=== PATIENT | male | born 1960 | race Caucasian/White ===

== ENCOUNTER → 2016-07-29 | Outpatient (CLI) | payer OTHER ==
[~2016-07-29] MED LIST: ASPI-435 PO; ATOR-24 PO; CLOP1TAB15 PO; COLC0.6T54 PO; DVN80 PO; HYDR-5688 PO; METO1TAB71 PO; OXYC-57 PO
[2016-07-29 13:24] LABS: ALT/SGPT 50 U/L (12-78); BLOOD UREA NITROGEN 21 mg/dl (7-18); BUN/CREATININE RATIO 19.1 (10-20); CALCIUM 9.7 mg/dl (8.5-10.1); CARBON DIOXIDE 30 mmol/L (21-32); CHLORIDE 107 mmol/L (98-107); CHOLESTEROL 153 mg/dl (0-200); GLUCOSE 113 mg/dl (70-99); POTASSIUM 4.7 mmol/L (3.5-5.1); SODIUM 141 mmol/L (136-145); TRIGLYCERIDES 55 mg/dl (0-150); VERY LOW DENSITY LIPOPROT CALC 11 mg/dl
[2016-07-29 13:28] LABS: ALB/GLOB RATIO 1.1 (0.9-2); ALKALINE PHOSPHATASE 61 U/L (45-117); AST/SGOT 37 U/L (15-37); CHOLESTEROL/HDL RATIO 2.9; HDL CHOLESTEROL 53 mg/dl; LDL CHOLESTEROL CALCULATED 89 mg/dl
[2016-07-29 13:32] LABS: ESTIMATED AVERAGE GLUCOSE 126 mg/dl; HA1C FLAG Normal (Normal)
== END | disposition home or self-care (01) ==
LOC: C.LABPVFM 08:03
PROVIDERS: ATTEND Family Medicine
DX: M67.921 Unspecified disorder of synovium and tendon, right upper arm (principal); I10 Essential (primary) hypertension; E78.5 Hyperlipidemia, unspecified

== ENCOUNTER → 2016-10-12 | Outpatient (CLI) | payer OTHER ==
--- NOTE | 2016-10-12 12:24 | DIAGNOSTIC IMAGING REPORT ---
LEFT ANKLE MIN 3 VIEWS ROUTINE CLINICAL HISTORY: LEFT ANKLE PAIN COMPARISON: None. DISCUSSION: The bony mineralization appears normal. No fractures or dislocations are visualized. There are no erosive or destructive changes. There are vascular calcifications present. There is no evidence for soft tissue swelling. IMPRESSION: No fractures or dislocations identified. No evidence of erosive disease. Electronically signed by: Jh Moore M.D. 10/12/2016 12:23 PM Dictated Date/Time: 10/12/2016 12:22 PM
== END | disposition home or self-care (01) ==
LOC: C.RADPV 12:07
PROVIDERS: ATTEND Family Medicine
DX: M25.572 Pain in left ankle and joints of left foot (principal)

== ENCOUNTER 2016-10-14 07:42 | Emergency (ER) | payer OTHER ==
[~2016-10-14] VITALS: Ht 170.2 cm; Wt 84.0 kg
[~2016-10-14 07:42] MED LIST changes: -ATOR-24 PO; -CLOP1TAB15 PO; -COLC0.6T54 PO; -HYDR-5688 PO
[2016-10-14 07:46] VITALS: Ht 170.2 cm; Wt 84.0 kg
[2016-10-14] MEDS ORDERED: HYDROCODONE/ACETAMOPHEN 5/325MG TAB PO ONE (08:15)
[2016-10-14] MEDS ORDERED: ATOR-24 PO (08:39)
[2016-10-14] MEDS ORDERED: CLOP1TAB15 PO (08:39)
[2016-10-14 08:46] LABS: BASO % 0.5 %; BASO ABS # 0.04 K/uL (0-0.2); COMPLETE YES; EOS % 4.5 %; HEMATOCRIT 40.4 % (42-52); IG% 0.1 %; LYMPH ABS # 1.93 K/uL (1.2-3.4); MEAN CELL VOLUME 89.6 fL (80-100); MEAN CORPUSCULAR HEMOGLOBIN 31.5 pg (25-34); MEAN CORPUSCULAR HGB CONC 35.1 g/dl (32-36); MEAN PLATELET VOLUME 10.9 fL (7.4-10.4); MONO % 5.4 %; NEUT % 66.5 %; PLATELET COUNT 137 K/uL (130-400); RED BLOOD COUNT 4.51 M/uL (4.7-6.1)
[2016-10-14 09:13] VITALS: BP 168/76; PULSE 55; TEMP 36.6; O2SAT 97
[2016-10-14] MEDS ORDERED: HYDR-5688 PO (09:21)
[2016-10-14] MEDS ORDERED: COLC0.6T54 PO (09:21)
--- NOTE | 2016-10-14 16:05 | EMERGENCY ROOM VISIT NOTE ---
History First contact with patient: 07:57 Chief Complaint: ANKLE PAIN Stated Complaint: ANKLE PAIN History of Present Illness The patient is a 56 year old white male who presents to the Emergency Room with complaints of left ankle pain that began yesterday. Patient states he saw his PCP and was told to take ibuprofen. He is concerned that he has gout. He states this has happened several times in the past and last a few days. He usually takes oral pain medication along with other unknown medications and his symptoms resolve. He asked for pain medication yesterday at his PCPs office, and states he was told to take ibuprofen. He states it is not working. He is using crutches and states it is difficult to put weight on the ankle. He denies any falls. No numbness or tingling. He denies any fevers or chills. No lower leg pain. No other treatment. Review of Systems REVIEW OF SYSTEM: HEENT: No dizziness, visual problems, hearing loss, or tinnitus. There is no difficulty swallowing and no oral lesions are present. LYMPH: No adenopathy. PULMONARY: No cough, shortness of breath, sputum production or hemoptysis. CARDIOVASCULAR: No chest pain, palpitations, shortness of breath or peripheral edema. GASTROINTESTINAL: No diarrhea, constipation, nausea, vomiting, or abdominal pain. GENITOURINARY: No dysuria, frequency, urgency or nocturia. NEUROLOGIC: No weakness, muscle tenderness, epilepsy or history of neurological problems. MUSCULOSKELETAL: No history of joint tenderness/swelling. No history of arthritis or arthralgias. SKIN: No rashes or lesions. PSYCHIATRIC: Positive history of alcohol abuse. ENDOCRINE: No history of diabetes, thyroid disorders, or abnormal hair growth. Past Medical/Surgical History Medical Problems: (1) Alcohol Abuse-Unspec (2) Carpal Tunnel Syndrome (3) Chronic Hepatitis C W/O Hepatic Coma (4) Hypertension Nos Social History Problems: (1) Tobacco Use Disorder Family History Noncontributory. Social History Smoking Status: Former Smoker Smokeless Tobacco Use: No Alcohol Use: heavy Drug Use: none, other Marital Status: Housing Status: lives with family Occupation Status: employed Current/Historical Medications Scheduled Aspirin (Aspirin 81), 1 TAB PO DAILY Atorvastatin (Lipitor), 40 MG PO DAILY Clopidogrel (Plavix), 75 MG PO DAILY Colchicine (Colchicine), 0.6 MG PO DIRECTED Valsartan (Diovan), 160 MG PO QAM Scheduled PRN Hydrocodone/Acetaminophen 5MG/325MG ([place] 5MG/325MG), 1-2 TABLET PO Q6 PRN for Pain Allergies Coded Allergies: Lisinopril (Verified Adverse Reaction, Severe, COUGH, 10/14/16) Physical Exam Vital Signs Date Time Temp Pulse Resp B/P Pulse Ox O2 Delivery O2 Flow Rate FiO2 10/14/16 09:13 36.6 55 18 168/76 97 Room Air 10/14/16 07:46 36.7 69 18 176/90 98 Room Air Pain Rating (0-10): 10.0 Physical Exam Gen.: Well-developed, well-nourished, middle-aged white male, in obvious discomfort. No acute distress. Sitting on a bed. Alert and oriented. Skin: Warm and dry with good turgor. No rashes or lesions. No tophi. Ankle has a mild redness around it. Mildly warm. There is nothing to suggest donato cellulitis at this time. There is also visible mild intra-articular effusion. No ecchymosis. The patient is not diaphoretic. No abrasions. Musculoskeletal : No pain with palpation over the knee or calf. He does have discomfort with palpation over the medial and lateral ankle as well as anteriorly. No pain posteriorly. Achilles tendon is palpated throughout its entirety and found to be intact and without defect. Normal Alicia test. No pain with palpation over the malleoli. No pain with palpation over the midfoot, forefoot, or digits. Motor function of the toes is intact but causes pain around the ankle. Ankle range of motion is limited secondary to pain as well. Strength is 5/5 for resisted plantar flexion/dorsiflexion and inversion/eversion. Neurologic: Gross sensation is intact across the ankle and foot by soft touch. Peripheral pulses are 2+. Medical Decision & Procedures Laboratory Results 10/14/16 08:30 Red Blood Count 4.51, Mean Corpuscular Volume 89.6, Mean Corpuscular Hemoglobin 31.5, Mean Corpuscular Hemoglobin Concent 35.1, Mean Platelet Volume 10.9, Neutrophils (%) (Auto) 66.5, Lymphocytes (%) (Auto) 23.0, Monocytes (%) (Auto) 5.4, Eosinophils (%) (Auto) 4.5, Basophils (%) (Auto) 0.5, Neutrophils # (Auto) 5.59, Lymphocytes # (Auto) 1.93, Monocytes # (Auto) 0.45, Eosinophils # (Auto) 0.38, Basophils # (Auto) 0.04 Test 10/14/16 08:30 White Blood Count 8.40 K/uL (4.8-10.8) Red Blood Count 4.51 M/uL (4.7-6.1) Hemoglobin 14.2 g/dL (14.0-18.0) Hematocrit 40.4 % (42-52) Mean Corpuscular Volume 89.6 fL (80-100) Mean Corpuscular Hemoglobin 31.5 pg (25-34) Mean Corpuscular Hemoglobin Concent 35.1 g/dl (32-36) Platelet Count 137 K/uL (130-400) Mean Platelet Volume 10.9 fL (7.4-10.4) Neutrophils (%) (Auto) 66.5 % Lymphocytes (%) (Auto) 23.0 % Monocytes (%) (Auto) 5.4 % Eosinophils (%) (Auto) 4.5 % Basophils (%) (Auto) 0.5 % Neutrophils # (Auto) 5.59 K/uL (1.4-6.5) Lymphocytes # (Auto) 1.93 K/uL (1.2-3.4) Monocytes # (Auto) 0.45 K/uL (0.11-0.59) Eosinophils # (Auto) 0.38 K/uL (0-0.5) Basophils # (Auto) 0.04 K/uL (0-0.2) RDW Standard Deviation 42.0 fL (36.4-46.3) RDW Coefficient of Variation 12.8 % (11.5-14.5) Immature Granulocyte % (Auto) 0.1 % Immature Granulocyte # (Auto) 0.01 K/uL (0.00-0.02) Uric Acid 6.7 mg/dl (2.6-7.2) CBC and uric acid level were obtained. They're both unremarkable. Medications Administered Medications (Trade) Dose Ordered Sig/Elicia Route Start Time Stop Time Status Last Admin Dose Admin Acetaminophen/ Hydrocodone Bitart ([place] 5/325 Tab) 1 tab NOW ONCE PO 10/14/16 08:15 10/14/16 08:16 DC 10/14/16 08:23 1 TAB [place] 5 mg by mouth ED Course Patient was educated regarding today's findings. Conservative care measures were discussed. Labs were obtained. He was given [place] 5 mg for his discomfort. We did discuss the strong possibility of gout. Uric acid level is not significantly elevated but may be rising. He did have his leg elevated during the ED visit, and the redness almost entirely resolved. He continued to have a small intra-articular effusion. Option of oral anti-inflammatory, prednisone, and colchicine was discussed at length. He does take Plavix. He also has a history of diabetes. Because of this, he was started on colchicine. Prescription was provided. He was also prescribed a small amount of [place] 5 mg to be used for severe pain. Driving precautions were given. PDMP was also checked. Follow-up with his PCP this week for reexamination. Use the crutches as needed. Weight-bear as tolerated. Medical Decision Possibility of ankle sprain, intra-articular infection, osteoarthritis flare, gout, and tendon injury were considered. [place] Drug Monitoring Program Drug Monitoring Findings: No excessive prescriptions. Impression Primary Impression: Left ankle pain Departure Information Dispostion Home / Self-Care Prescriptions Colchicine (Colchicine) 0.6 Mg Tab 0.6 MG PO DIRECTED, #10 TAB Prov: Anthony Mendieta,P.A. 10/14/16 Hydrocodone/Acetaminophen 5MG/325MG ([place] 5MG/325MG) Tab 1-2 TABLET PO Q6 Y for Pain, #12 TAB For Initial Treatment Prov: Anthony Mendieta,P.A. 10/14/16 Referrals Christian Fisher M.D. (PCP) Forms HOME CARE DOCUMENTATION FORM, IMPORTANT VISIT INFORMATION Patient Instructions Gout, My [facility] Additional Instructions [place] one to 2 tablets every 6 hours as needed for severe pain-no driving Use your crutches until you can walk without a limp Gentle motion daily Start colchicine today-2 tablets immediately, followed by 1 tablet an hour later. Take 1 tablet daily starting tomorrow, until symptoms resolve Ice and elevate the leg to reduce pain and swelling Follow-up with your PCP on Sunday if needed
== END 2016-10-14 09:30 | disposition home or self-care (01) ==
LOC: C.EDB 07:44
DX: M25.572 Pain in left ankle and joints of left foot (principal); I10 Essential (primary) hypertension; K75.9 Inflammatory liver disease, unspecified; F17.210 Nicotine dependence, cigarettes, uncomplicated; Z79.82 Long term (current) use of aspirin; Z79.899 Other long term (current) drug therapy

== ENCOUNTER → 2017-01-27 | Outpatient (CLI) | payer OTHER ==
[~2017-01-27] MED LIST changes: +ATOR-24 PO; +CLOP1TAB15 PO; +COLC0.6T54 PO; +HYDR-5688 PO; -METO1TAB71 PO; -OXYC-57 PO
[2017-01-27 13:15] LABS: ALT/SGPT 52 U/L (12-78); AST/SGOT 37 U/L (15-37); BLOOD UREA NITROGEN 23 mg/dl (7-18); BUN/CREATININE RATIO 21.2 (10-20); CALCIUM 9.4 mg/dl (8.5-10.1); CARBON DIOXIDE 31 mmol/L (21-32); CHLORIDE 106 mmol/L (98-107); ESTIMATED AVERAGE GLUCOSE 131 mg/dl; GLUCOSE 111 mg/dl (70-99); HA1C FLAG Normal (Normal); POTASSIUM 4.8 mmol/L (3.5-5.1); SODIUM 141 mmol/L (136-145)
[2017-01-27 13:17] LABS: ALB/GLOB RATIO 1.1 (0.9-2); ALKALINE PHOSPHATASE 63 U/L (45-117); CHOLESTEROL 138 mg/dl (0-200); CHOLESTEROL/HDL RATIO 2.5; HDL CHOLESTEROL 56 mg/dl; LDL CHOLESTEROL CALCULATED 73 mg/dl; TRIGLYCERIDES 46 mg/dl (0-150); VERY LOW DENSITY LIPOPROT CALC 9 mg/dl
== END | disposition home or self-care (01) ==
LOC: C.LABPVFM 07:59
PROVIDERS: ATTEND Family Medicine
DX: I10 Essential (primary) hypertension (principal); E11.9 Type 2 diabetes mellitus without complications; E78.5 Hyperlipidemia, unspecified; L60.1 Onycholysis; M25.572 Pain in left ankle and joints of left foot

== ENCOUNTER → 2017-04-23 | Outpatient (CLI) | payer OTHER ==
[~2017-04-23] MED LIST changes: -COLC0.6T54 PO
[2017-04-23 18:03] LABS: INR 1.1 (0.9-1.1); PROTHROMBIN TIME (PATIENT) 11.8 SECONDS (9.0-12.0)
== END | disposition home or self-care (01) ==
LOC: C.LABPVFM 14:08
PROVIDERS: ATTEND Surgery
DX: Z01.812 Encounter for preprocedural laboratory examination (principal); E11.9 Type 2 diabetes mellitus without complications; D17.0 Benign lipomatous neoplasm of skin and subcutaneous tissue of head, face and neck

== ENCOUNTER → 2017-06-01 | Day surgery (SDC) | payer OTHER ==
[2017-05-22 12:17] VITALS: Ht 171.5 cm; Wt 75.9 kg
[~2017-06-01] VITALS: Ht 171.5 cm; Wt 75.9 kg
[~2017-06-01] MED LIST changes: +ATROPINE SULFATE 0.1 MG/ML 5ML SYR IV PRN; +BACITRACIN OINT 15 GM TUBE ONE; +BUPIVACAINE 0.5 % 5 MG/1 ML MPF 30ML VIAL ONE; +EpHEDrine SULFATE 50MG/5ML SYR ONE; +EpHEDrine SULFATE INJ 50 MG/ML AMP IV PRN; +FENTANYL CITRATE INJ 50 MCG/1 ML 2 ML VIAL IV PRN; +FENTANYL CITRATE INJ 50 MCG/1 ML 2 ML VIAL ONE; -HYDR-5688 PO; +IBUPROFEN 600 MG TAB PO PRN; +LACTATED RINGER'S 1000ML 1,000 ML IV SCH; +LIDOCAINE HCL 2% 2 ML VIAL (20MG/ML) ONE; +LIDOCAINE/EPINEPHRINE 1% INJ 50 ML VIAL ONE; +MIDAZOLAM HCL 1 MG/ML 2ML VIAL ONE; +ONDANSETRON INJ 2 MG/ML 2 ML VIAL IV PRN; +ONDANSETRON INJ 2 MG/ML 2 ML VIAL ONE; +OXYC-57 PO; +PROPOFOL IV EMULSION 10 MG/ML 20 ML VIAL IV ONE; +SODIUM CHLORIDE 0.9% 1000ML 1,000 ML IV SCH
--- NOTE | 2017-06-01 07:11 | History and Physical ---
History & Physical Date Jun 01, 2017. Chief Complaint Scalp lipoma History of Present Illness 56-year-old male with several year history of enlarging right posterior scalp lipoma. No history of infection. He has a history of peripheral vascular disease and had cardiac clearance. He has stopped his Plavix since Sunday but is still taking his baby aspirin. No family history of soft tissue malignancy. It causes him discomfort when pressure is applied to the area. Past Medical/Surgical History Medical Problems: (1) Alcohol Abuse-Unspec (2) Carpal Tunnel Syndrome (3) Chronic Hepatitis C W/O Hepatic Coma (4) Hypertension Nos Social History Problems: (1) Tobacco Use Disorder Allergies Coded Allergies: Lisinopril (Verified Adverse Reaction, Severe, COUGH, 06/01/17) Home Medications Scheduled Aspirin (Aspirin 81), 1 TAB PO QAM Atorvastatin (Lipitor), 40 MG PO QAM Clopidogrel (Plavix), 75 MG PO QAM Valsartan (Diovan), 80 MG PO QAM Physical Examination Skin: warm/dry, no rash Eyes: normal inspection, EOMI, sclerae normal ENT: normal ENT inspection, pharynx normal Head: normocephalic, atraumatic, + pertinent finding (posterior right scalp there is a 3 cm soft, rubbery, mobile mass consistent with a lipoma.) Respiratory/Chest: lungs clear, normal breath sounds, no respiratory distress Cardiovascular: regular rate, rhythm, no edema, no murmur Abdomen / GI: normal bowel sounds, non tender Back: normal inspection Extremities: normal inspection, normal range of motion Diagnosis Right posterior scalp lipoma Plan of Treatment Plan for excision right posterior scalp mass Risks discussed include but are not limited to bleeding, infection, recurrence, need for future more extensive surgery, scar, seroma/hematoma, pain, numbness, and the risks of anesthesia Wound care instructions and activity should and reviewed The details of the surgery, recovery, plan of care were discussed with the patient, all questions were answered, the patient expressed understanding and agreed to proceed with surgery as planned.
[2017-06-01 08:17] VITALS: TEMP 36.6
--- NOTE | 2017-06-01 08:20 | Discharge Instructions ---
Discharge Instructions Date of Service Jun 01, 2017. Visit Reason for Visit: Soft Tissue Scalp Mass 3 Cm Discharge Discharge Diagnosis / Problem: Soft Tissue Scalp Mass 3 Cm Discharge Goals Goal(s): Decrease discomfort, Improve function Activity Recommendations Activity Limitations: as noted below Lifting Limitations: gradually increase as tolerated Exercise/Sports Limitations: gradually increase as tolerated Shower/Bathe: tomorrow Driving or Machine Use: resume 3 days after discharge (Do not drive while using narcotic pain medication) Anesthesia . Post Anesthesia Instructions: If you have had General Anesthesia or IV Sedation: * Do not drive today. * Resume driving when surgeon permits. * Do not make important decisions or sign legal documents today. * Call surgeon for: 1. Temperature elevations greater than 101 degrees F. 2. Uncontrollable pain. 3. Excessive bleeding. 4. Persistent nausea and vomiting. 5. Medication intolerance (nausea, vomiting or rash). * For nausea and vomiting use only clear liquids such as: tea, soda, bouillon until nausea subsides, then gradually increase diet as tolerated. * If you have any concerns or questions, call your surgeon's office. If physician is unavailable and it is an emergency, call 911 or go to the nearest emergency room. . Instructions / Follow-Up Instructions / Follow-Up You have Sutures in place. You may restart your Plavix and Aspirin medications tomorrow 06/02/2017 as prescribed. You may use OTC ibuprofen as directed on the label for pain. You may alternate this with OTC Tylenol as directed on the label if your require more pain control. Please follow-up with Dr. Slade in the general surgery clinic in 1-2 weeks for suture removal and post-operative incision check. Please call our office at to schedule an appointment if you have not done so already. [facility]. [address] [place] [address]. Diet Recommendations Recommended Home Diet: no limitations, resume previous diet Procedures Procedures Performed: Posterior Scalp Mass Excision Pending Studies Studies pending at discharge: yes List of pending studies: Pathology Medical Emergencies . Who to Call and When: Medical Emergencies: If at any time you feel your situation is an emergency, please call 911 immediately. . Non-Emergent Contact Non-Emergency issues call your: Primary Care Provider, Surgeon Call Non-Emergent contact if: you have a fever, temperature is above 101.5, your pain is not controlled, your pain is worsening, wound has increased drainage, wound has increased redness . . "Provider Documentation" section prepared by Jhonatan Montes. . [place] Drug Monitoring Program Search Results: patient reviewed within database (No matching patient identified)
--- NOTE | 2017-06-01 08:21 | [facility] Post Operative Brief Note ---
Immediate Operative Summary Operative Date Jun 01, 2017. Pre-Operative Diagnosis Posterior scalp soft tissue mass Post-Operative Diagnosis Same as pre-op Procedure(s) Performed Posterior Scalp Mass Excision Surgeon Dr. Slade Fisher Troll Line Surgeon(s) Jhonatan Lima Estimated Blood Loss 10ML Findings 3.5 cm lipoma excised, deep to the galea. Specimens A.Posterior scalp mass Drains none Anesthesia MAC and local Complication(s) None Disposition Recovery Room / PACU
--- NOTE | 2017-06-01 08:25 | [facility] Operative Report ---
Operative Report Operative Date Jun 01, 2017. Pre-Operative Diagnosis Posterior scalp soft tissue mass Post-Operative Diagnosis posterior scalp soft tissue mass Procedure(s) Performed Excision posterior scalp soft tissue mass Surgeon Dr. Slade Retail Cashier Associate Surgeon(s) Jhonatan Lima Estimated Blood Loss 10ML Findings 3.5 cm lipoma, deep to the galea Specimens A.Posterior scalp mass Drains none Anesthesia MAC and local Complication(s) None Disposition Recovery Room / PACU Indications 56-year-old male several year history of posterior scalp mass, likely lipoma. Plan for excision posterior scalp mass. The risks of the procedure were discussed, all questions were answered, and the patient agreed to proceed with surgery as planned. Description of Procedure The patient was properly identified, consented, and taken to the operating room where he was placed in the supine position. Monitored anesthesia care was induced. The patient was placed in the lateral decubitus position with his left side down. SCDs and a safety belt were placed. The patient's posterior scalp was prepped and draped in the standard sterile fashion. Surgical timeout was performed and all parties were in agreement that this was the correct patient and procedure to be performed and we continued as planned. Local anesthetic was injected along the skin incision. A oblique incision was made overlying the mass and deepened down through the subcutaneous tissue with electrocautery. The galea was opened. The mass was circumferentially dissected , excised, and passed off the table as specimen. Her to be a lipoma. The wound was irrigated and hemostasis was achieved. The galea was closed with interrupted 3-0 Vicryl sutures. The skin was closed with interrupted 3-0 Vicryl deep dermal sutures, followed by 3-0 Prolene simple interrupted suture. Antibiotic ointment was placed over the wound. Mr. Montes assisted in retracting, dissecting, and closing the wound. The patient was taken to the PACU where he recovered without apparent incident. All sponge, instrument and needle counts were correct at the conclusion of the procedure. The patient tolerated the procedure well. I attest to the content of the Intraoperative Record and any orders documented therein. Any exceptions are noted below.
[2017-06-01 08:41] VITALS: BP 129/67; PULSE 51; O2SAT 100
--- NOTE | 2017-06-01 08:44 | Anesthesiology Progress Note ---
Anesthesia Post Op Note Date & Time Jun 01, 2017 at 08:44 Vital Signs Pain Intensity: 0 Vital Signs Past 12 Hours Date Time Temp Pulse Resp B/P (MAP) Pulse Ox O2 Delivery O2 Flow Rate FiO2 06/01/17 08:41 51 20 129/67 (87) 100 Room Air 06/01/17 08:17 36.6 83 18 130/74 (92) 97 Room Air 06/01/17 06:25 36.7 52 16 146/74 (98) 100 Room Air Notes Mental Status: alert / awake / arousable, participated in evaluation Pt Amnestic to Procedure: Yes Nausea / Vomiting: adequately controlled Pain: adequately controlled Airway Patency, RR, SpO2: stable & adequate BP & HR: stable & adequate Hydration State: stable & adequate Anesthetic Complications: no major complications apparent
== END | disposition home or self-care (01) ==
LOC: X.SURG 06:10
PROVIDERS: ATTEND Surgery
DX: D17.0 Benign lipomatous neoplasm of skin and subcutaneous tissue of head, face and neck (principal); I10 Essential (primary) hypertension; B19.20 Unspecified viral hepatitis C without hepatic coma; Z87.891 Personal history of nicotine dependence

== ENCOUNTER 2022-08-08 07:46 | Inpatient (IN) ==
[2022-08-08] MEDS ORDERED: ONDANSETRON INJ 2 MG/ML 2 ML VIAL IV STA (08:09)
[2022-08-08] MEDS ORDERED: SODIUM CHLORIDE 0.9% 1,000 ML IV STA (08:09)
--- NOTE | 2022-08-08 08:16 | Emergency Department Note ---
History of Present Illness General Chief complaint: Groin Pain Stated complaint: GROIN PAIN, RIGHT SIDE PAIN, NAUSEOUS Time Seen by Provider: 08/08/22 08:14 History of Present Illness Maximum Pain Intensity: 10 This 62-year-old male patient presents to the emergency department for evaluat ion of right-sided groin and abdominal pain as well as nausea. The pain radiates from his right lower quadrant into the right testicle. Symptoms happened a couple weeks ago as well, but then resolved. The pain wakes the patient out of a sleep. History of bypass in an artery in that general area per patient. He states that 2 weeks ago he felt like he had a viral illness that resolved as well. Has not eaten in the past 1-2 days because of upset stomach, but the pain didn't get severe until this morning. His urine stream has been "slow" per patient and just got an appointment with urology on Aug 25 to evaluate further. Typically has soft formed BMs once a day. However, since the symptoms started, he feels like he has to have a BM, but only passes gas. Denies any chest pain or SOB. Just started with nausea this morning, but no vomiting. No fevers, but has had chills. Has tried Advil without improvement of his symptoms. Upper bilateral popliteal artery bypass surgery bilaterally in 2013 per patient. He has been on Plavix since that time. Sees Dr. Perez of vascular surgery in [place]. Sees Dr. Peter of GI. Scheduled for EGD and Colonoscopy on Sep 05 for history of TA polyps and Boo's Esophagus. Home Medications Medication Instructions Recorded Confirmed Type aspirin 81 mg tablet,delayed 81 mg PO DAILY 11/09/21 08/08/22 History release atorvastatin 40 mg tablet 40 mg PO HS #90 tabs 11/28/21 08/08/22 Rx clopidogrel 75 mg tablet See Rx Instructions .Route 01/09/22 08/08/22 Rx .COMPLEX #30 tabs valsartan 80 1 tab PO BID #180 tabs 06/27/22 08/08/22 Rx mg-hydrochlorothiazide 12.5 mg tablet Allergies Allergy/AdvReac Type Severity Reaction Status Date / Time lisinopril AdvReac Severe COUGH Verified 08/08/22 15:22 Past Med/Surg History Medical History Adenomatous colon polyp Alcohol abuse, unspecified Barretts esophagus Benign essential hypertension Diabetes mellitus, type 2 TAKES NO MEDS/ DIET/ EXERCISE History of irregular heartbeat HX- HAD EKG AT [facility] THIS YEAR- SEES AT [facility]- PER THAT DOCTOR, NO ISSUES OR PROBLEMS Hyperlipidemia Neoplasm of soft tissues of head PAD (peripheral artery disease) Right leg pain S/P angiogram of extremity Tobacco use disorder Tubular adenoma of colon Surgical History Cyst REMOVED FROM BACK OF HEAD History of carpal tunnel release BILAT History of colonoscopy History of esophagogastroduodenoscopy (EGD) History of open reduction and internal fixation (ORIF) procedure RT LEG (HARDWARE INTACT) History of right cataract surgery Hx of vascular surgery BILAT UPPER ARTERIAL "POP" 5 YRS AGO- AT [facility]- FOLLOWS WITH [facility] (NO STENTS) Nausea and vomiting after administration of anesthetic agent Family History Mother Family history of diabetes mellitus Myocardial infarction Diabetes Stroke Father Myocardial infarction Cancer Brother Stroke Other Hypertension Denies family history of Ovarian cancer Prostate cancer Breast cancer Colorectal cancer Social History Smoking Status: Former smoker Tobacco Type: Cigarettes Age Started Using Tobacco: 17; Age Quit Using Tobacco: 49; packs per day: 1; Second Hand Exposure: Yes; Hx Alcohol Use: Yes Alcohol type: beer Hx Substance Use: No Preferred Language: Uzbek Communication Ability: Effective Visual Impairment: No Limitations Hearing Ability: Normal Crisis Manager Required: No Beliefs That Will Affect Care: None marital status: Current Living Situation: Spouse current occupational status: employed current occupation: [employer] Feels Safe at Home: Yes Childhood Exposure to Second-Hand Smoke: Yes Diet Comment: regular Dental Care, Regularly: Yes Physical Activity Frequency: 5-6 Times per Week Seatbelt Use: always Sunscreen Use: Yes Assistive Devices: Contacts and Glasses Review of Systems See HPI for pertinent positives & negatives. Physical Exam Vital Signs Vital Signs - 24 hr 08/08/22 08:02 08/08/22 10:29 08/08/22 11:16 Temperature 36.4 C L Temperature Source Temporal Artery Scan Pulse Rate 127 H 121 H Pulse Rate [Apical] 118 H Pulse Rate from SpO2 Sensor 122 H Pulse Rhythm [Apical] Regular Respiratory Rate 18 18 24 Respiratory Effort / Characteristics Non-Labored Spontaneous Non-Labored Respiratory Depth Normal Normal Respiratory Pattern Regular Blood Pressure 145/94 H Blood Pressure [Left Arm] 120/85 Blood Pressure Mean 111 Blood Pressure Mean [Left Arm] 96 Blood Pressure Position Sitting Pulse Oximetry 97 96 100 Oxygen Delivery Method Room Air Room Air Sepsis Recent Fever Within 48 Hours No Sepsis New/Unexplained Change in Mental Status No Sepsis Action Taken by Nursing No Action Required 08/08/22 11:20 08/08/22 11:30 08/08/22 11:40 Temperature Temperature Source Pulse Rate 106 H 108 H 107 H Pulse Rate [Apical] Pulse Rate from SpO2 Sensor 107 H 108 H 107 H Pulse Rhythm [Apical] Respiratory Rate 19 18 19 Respiratory Effort / Characteristics Respiratory Depth Respiratory Pattern Blood Pressure Blood Pressure [Left Arm] Blood Pressure Mean Blood Pressure Mean [Left Arm] Blood Pressure Position Pulse Oximetry 96 94 93 Oxygen Delivery Method Sepsis Recent Fever Within 48 Hours Sepsis New/Unexplained Change in Mental Status Sepsis Action Taken by Nursing 08/08/22 11:50 08/08/22 12:00 08/08/22 12:10 Temperature Temperature Source Pulse Rate 104 H 126 H 121 H Pulse Rate [Apical] Pulse Rate from SpO2 Sensor 105 H Pulse Rhythm [Apical] Respiratory Rate 17 27 H 27 H Respiratory Effort / Characteristics Respiratory Depth Respiratory Pattern Blood Pressure Blood Pressure [Left Arm] Blood Pressure Mean Blood Pressure Mean [Left Arm] Blood Pressure Position Pulse Oximetry 93 Oxygen Delivery Method Sepsis Recent Fever Within 48 Hours Sepsis New/Unexplained Change in Mental Status Sepsis Action Taken by Nursing 08/08/22 12:51 08/08/22 13:14 08/08/22 13:14 Temperature Temperature Source Pulse Rate 125 H Pulse Rate [Apical] Pulse Rate from SpO2 Sensor 125 H 126 H Pulse Rhythm [Apical] Respiratory Rate 22 Respiratory Effort / Characteristics Respiratory Depth Respiratory Pattern Blood Pressure 140/80 Blood Pressure [Left Arm] Blood Pressure Mean 100 Blood Pressure Mean [Left Arm] Blood Pressure Position Pulse Oximetry 96 93 Oxygen Delivery Method Room Air Sepsis Recent Fever Within 48 Hours Sepsis New/Unexplained Change in Mental Status Sepsis Action Taken by Nursing VITALS: Vitals are noted on the nurse's note and reviewed by myself. GENERAL: Non toxic, no acute distress, non-diaphoretic. SKIN: Capillary refill <2 sec. EARS: External auditory canals clear, tympanic membranes pearly jorge without erythema or effusion bilaterally. EYES: PERRLA. EOMI. Conjunctivae without injection, sclerae without icterus. NOSE: Patent without discharge. MOUTH: Mucous membranes moist. Uvula midline. Airway patent. NECK: Supple without nuchal rigidity. HEART: Tachycardic without murmurs gallops or rubs. LUNGS: Clear to auscultation bilaterally without wheezes, rales or rhonchi. No retractions or accessory muscle use. ABDOMEN: Positive bowel sounds x 4. Normal tympanic percussion. Soft, tender to palpation in the right lower quadrant, without masses or organomegaly. Ivey sign negative. Mild guarding, but no rebound tenderness. No rigidity. : Permission to perform the exam. Oil Well Driller present for the exam. No testicular edema or erythema. Testicles are nontender to palpation. The patient is tender to palpation into the right groin. No obvious hernias appreciated. MUSCULOSKELETAL: No gross musculoskeletal defects. NEURO: Patient was alert and oriented to person place and time. No focal neurological deficits. Course Administered Medications Discontinued Medications Sodium Chloride (Nss) 1,000 mls @ 999 mls/hr IV .Q1H1M STA Stop: 08/08/22 09:09 Last Infusion: 08/08/22 09:30 Dose: 0 mls/hr Documented By: Admin: 08/08/22 08:24 Dose: 999 mls/hr Documented By: NA Piperacillin Sod/Tazobactam Sod (Zosyn) 4.5 gm in 120 mls @ 240 mls/hr IV NOW ONE Stop: 08/08/22 12:34 Last Infusion: 08/08/22 13:45 Dose: 0 mls/hr Documented By: Admin: 08/08/22 13:10 Dose: 240 mls/hr Documented By: GEE Ioversol (Optiray 350 100ml) 84 ml IV ONCE ONE Stop: 08/08/22 11:11 Last Admin: 08/08/22 11:10 Dose: 84 ml Documented By: RAKEL Morphine Sulfate (Morphine Sulfate 4 Mg/Ml 1 Ml Carp\\Vial) 4 mg IV NOW STA Stop: 08/08/22 08:27 Last Admin: 08/08/22 08:29 Dose: 4 mg Documented By: NA Morphine Sulfate (Morphine Sulfate 4 Mg/Ml 1 Ml Carp\\Vial) 4 mg IV NOW STA Stop: 08/08/22 10:08 Last Admin: 08/08/22 10:29 Dose: 4 mg Documented By: KV Morphine Sulfate (Morphine Sulfate 4 Mg/Ml 1 Ml Carp\\Vial) 4 mg IV NOW STA Stop: 08/08/22 12:02 Last Admin: 08/08/22 13:10 Dose: 4 mg Documented By: GEE Ondansetron HCl (Ondansetron Inj 2 Mg/Ml 2 Ml Vial) 4 mg IV NOW STA Stop: 08/08/22 08:10 Last Admin: 08/08/22 08:22 Dose: 4 mg Documented By: NA Medical Decision Making Differential Diagnosis Differential diagnosis includes hepatitis, pancreatitis, cholecystitis, cholelithiasis, appendicitis, kidney stone, pyelonephritis, UTI, gastritis, gastroenteritis, mesenteric adenitis, obstruction, constipation, hernia, abdominal abscess, perforation, diverticulitis, IBD, ischemic colitis, abdominal aortic aneurysm, testicular torsion, prostatitis, or others. Laboratory Data Attestation: I reviewed the patient's lab results. 08/08/22 08:30 08/08/22 08:30 Lab Results 08/08/22 08/08/22 08/08/22 Range/Units 08:30 08:30 08:30 WBC 13.92 H (4.8-10.8) K/ul RBC 4.69 (4.63-6.08) M/uL Hgb 15.1 (14.0-18.0) g/dl Hct 42.6 (40.1-51.0) % MCV 90.8 (80.0-100.0) fL MCH 32.2 (25.0-34.0) pg MCHC 35.4 (32.0-36.0) g/dL RDW Std Deviation 41.1 (36.4-46.3) fL RDW Coeff of Silas 12.4 (11.5-14.5) % Plt Count 246 (130-400) K/uL MPV 10.0 (9.4-12.4) fL Immature Gran % (Auto) 0.8 % Neut % (Auto) 78.9 % Lymph % (Auto) 10.0 % [place] % (Auto) 9.6 % Eos % (Auto) 0.3 % Baso % (Auto) 0.4 % Neut # (Auto) 10.99 H (1.4-6.5) K/uL Lymph # (Auto) 1.39 (1.2-3.4) K/uL [place] # (Auto) 1.33 H (0.24-0.82) K/uL Eos # (Auto) 0.04 (0-0.50) K/uL Baso # (Auto) 0.06 (0-0.2) K/uL Immature Gran # (Auto) 0.11 H (0.00-0.02) K/uL ESR 42 H (0-20) mm/hr PT (9.0-12.0) Seconds INR (0.9-1.1) APTT (21.0-31.0) Seconds PTT Ratio Sodium 128 L (136-145) mmol/L Potassium 4.2 (3.5-5.1) mmol/L Chloride 90 L (98-107) mmol/L Carbon Dioxide 29 (21-32) mmol/L Anion Gap 9 (3-11) BUN 18 (6-23) mg/dl Creatinine 1.35 (0.6-1.4) mg/dl Est Cr Clr Drug Dosing 64.1 ml/min Est GFR ( Amer) 65.2 ml/min Est GFR (Non-Af Amer) 56.3 ml/min BUN/Creatinine Ratio 13.3 (10-20) Glucose 140 H (70-99(Fasting)) mg/dl Lactate (0.4-2.0) mmol/L Calcium 10.3 H (8.5-10.1) mg/dl Total Bilirubin 1.8 H (0.2-1.0) mg/dl AST 20 (13-39) U/L ALT 28 (7-52) U/L Alkaline Phosphatase 85 (34-104) U/L C-Reactive Protein (0-0.5) mg/dl Total Protein 8.3 (6.0-8.3) gm/dl Albumin 4.3 (3.4-5.0) gm/dl Globulin 4.0 (2.5-4.0) gm/dl Albumin/Globulin Ratio 1.1 (0.9-2) Lipase 23 (11-82) U/L Urine Color Urine Appearance (Clear) Urine pH (4.5-7.5) Ur Specific Viola (1.000-1.030) Urine Protein (Negative) Urine Glucose (UA) (Negative) Urine Ketones (Negative) Urine Blood (Negative) Urine Nitrite (Negative) Urine Bilirubin (Negative) Urine Urobilinogen (Negative) Ur Leukocyte Esterase (Negative) SARS-CoV-2, RNA, NAAT (NEGATIVE) 08/08/22 08/08/22 08/08/22 Range/Units 08:30 08:30 12:47 WBC (4.8-10.8) K/ul RBC (4.63-6.08) M/uL Hgb (14.0-18.0) g/dl Hct (40.1-51.0) % MCV (80.0-100.0) fL MCH (25.0-34.0) pg MCHC (32.0-36.0) g/dL RDW Std Deviation (36.4-46.3) fL RDW Coeff of Silas (11.5-14.5) % Plt Count (130-400) K/uL MPV (9.4-12.4) fL Immature Gran % (Auto) % Neut % (Auto) % Lymph % (Auto) % [place] % (Auto) % Eos % (Auto) % Baso % (Auto) % Neut # (Auto) (1.4-6.5) K/uL Lymph # (Auto) (1.2-3.4) K/uL [place] # (Auto) (0.24-0.82) K/uL Eos # (Auto) (0-0.50) K/uL Baso # (Auto) (0-0.2) K/uL Immature Gran # (Auto) (0.00-0.02) K/uL ESR (0-20) mm/hr PT 10.9 (9.0-12.0) Seconds INR 1.0 (0.9-1.1) APTT 28.4 (21.0-31.0) Seconds PTT Ratio 1.0 Sodium (136-145) mmol/L Potassium (3.5-5.1) mmol/L Chloride (98-107) mmol/L Carbon Dioxide (21-32) mmol/L Anion Gap (3-11) BUN (6-23) mg/dl Creatinine (0.6-1.4) mg/dl Est Cr Clr Drug Dosing ml/min Est GFR ( Amer) ml/min Est GFR (Non-Af Amer) ml/min BUN/Creatinine Ratio (10-20) Glucose (70-99(Fasting)) mg/dl Lactate 1.7 (0.4-2.0) mmol/L Calcium (8.5-10.1) mg/dl Total Bilirubin (0.2-1.0) mg/dl AST (13-39) U/L ALT (7-52) U/L Alkaline Phosphatase (34-104) U/L C-Reactive Protein 4.21 H (0-0.5) mg/dl Total Protein (6.0-8.3) gm/dl Albumin (3.4-5.0) gm/dl Globulin (2.5-4.0) gm/dl Albumin/Globulin Ratio (0.9-2) Lipase (11-82) U/L Urine Color Urine Appearance (Clear) Urine pH (4.5-7.5) Ur Specific Viola (1.000-1.030) Urine Protein (Negative) Urine Glucose (UA) (Negative) Urine Ketones (Negative) Urine Blood (Negative) Urine Nitrite (Negative) Urine Bilirubin (Negative) Urine Urobilinogen (Negative) Ur Leukocyte Esterase (Negative) SARS-CoV-2, RNA, NAAT (NEGATIVE) 08/08/22 08/08/22 Range/Units 13:03 Unknown WBC (4.8-10.8) K/ul RBC (4.63-6.08) M/uL Hgb (14.0-18.0) g/dl Hct (40.1-51.0) % MCV (80.0-100.0) fL MCH (25.0-34.0) pg MCHC (32.0-36.0) g/dL RDW Std Deviation (36.4-46.3) fL RDW Coeff of Silas (11.5-14.5) % Plt Count (130-400) K/uL MPV (9.4-12.4) fL Immature Gran % (Auto) % Neut % (Auto) % Lymph % (Auto) % [place] % (Auto) % Eos % (Auto) % Baso % (Auto) % Neut # (Auto) (1.4-6.5) K/uL Lymph # (Auto) (1.2-3.4) K/uL [place] # (Auto) (0.24-0.82) K/uL Eos # (Auto) (0-0.50) K/uL Baso # (Auto) (0-0.2) K/uL Immature Gran # (Auto) (0.00-0.02) K/uL ESR (0-20) mm/hr PT (9.0-12.0) Seconds INR (0.9-1.1) APTT (21.0-31.0) Seconds PTT Ratio Sodium (136-145) mmol/L Potassium (3.5-5.1) mmol/L Chloride (98-107) mmol/L Carbon Dioxide (21-32) mmol/L Anion Gap (3-11) BUN (6-23) mg/dl Creatinine (0.6-1.4) mg/dl Est Cr Clr Drug Dosing ml/min Est GFR ( Amer) ml/min Est GFR (Non-Af Amer) ml/min BUN/Creatinine Ratio (10-20) Glucose (70-99(Fasting)) mg/dl Lactate (0.4-2.0) mmol/L Calcium (8.5-10.1) mg/dl Total Bilirubin (0.2-1.0) mg/dl AST (13-39) U/L ALT (7-52) U/L Alkaline Phosphatase (34-104) U/L C-Reactive Protein (0-0.5) mg/dl Total Protein (6.0-8.3) gm/dl Albumin (3.4-5.0) gm/dl Globulin (2.5-4.0) gm/dl Albumin/Globulin Ratio (0.9-2) Lipase (11-82) U/L Urine Color [place] Urine Appearance Clear (Clear) Urine pH 6.5 (4.5-7.5) Ur Specific Viola 1.006 (1.000-1.030) Urine Protein Negative (Negative) Urine Glucose (UA) Negative (Negative) Urine Ketones Negative (Negative) Urine Blood Negative (Negative) Urine Nitrite Negative (Negative) Urine Bilirubin Negative (Negative) Urine Urobilinogen Negative (Negative) Ur Leukocyte Esterase Negative (Negative) SARS-CoV-2, RNA, NAAT NEGATIVE (NEGATIVE) Imaging Data Radiologist's Impression: Abdomen/Pelvis CT 08/08/22 08:[address] WITH IV CONTRAST CT DOSE: 797.06 mGy.cm HISTORY: Acute right lower quadrant abdominal pain RLQ abdominal pain TECHNIQUE: Multiaxial CT images of the abdomen and pelvis were performed following the IV administration of 84 cc of Optiray, A dose lowering technique was utilized adhering to the principles of ALARA. COMPARISON STUDY: Scrotal ultrasound of same day, CT abdomen and pelvis 10/14/2013 FINDINGS: Coronary artery calcifications. Clear lung bases. Unremarkable spleen, pancreas, gallbladder and adrenal glands. Marginal nodularity of the liver suggestive of cirrhosis. No hepatic mass identified. Patency of the hepatic and portal veins. Unremarkable kidneys without hydronephrosis. Prostamegaly. Bladder wall thickening with partial distention. Small fat filled inguinal hernias. Extensive atherosclerosis of the abdominal aorta and proximal branch vessels with suggestion of high-grade stenosis involving the bilateral common femoral arteries. Patent imaged superficial femoral arterial stents. No lymphadenopathy identified. No bowel obstruction. Acute sigmoid diverticulitis with 2.3 cm fluid collection extending from the wall of the sigmoid into the adjacent mesocolon, image 352 series 3 without well-defined allen. There are a few foci of extraluminal air within the adjacent mesocolon. Normal appendix. Unremarkable soft tissues. Moderate L5-S1 intervertebral disc space narrowing. No acute fracture identified. IMPRESSION: 1. Acute sigmoid diverticulitis with microperforation. There is a 2.3 cm fluid collection extending from the wall of the sigmoid into the adjacent mesocolon without well-defined allen, suspicious for a developing abscess. No drainable fluid collection identified. 2. No bowel obstruction. 3. Prostamegaly with urinary bladder wall thickening suggestive of chronic bladder outlet obstruction. Correlate with urinalysis. 4. Additional findings as above. ACT 112: Negative or not required by law. The above report was generated using voice recognition software. It may contain grammatical, syntax or spelling errors. Electronically signed by: Pernell King M.D. 08/08/2022 11:33 AM Scrotum Ultrasound 08/08/22 08:26 US scrotum/testicle CLINICAL HISTORY: 62 years-old Male with Testicular pain and RLQ pain. Acute right-sided scrotal pain COMPARISON STUDY: CT abdomen and pelvis 10/14/2013 TECHNIQUE: Real-time, grayscale, and color Doppler sonography of the testes and scrotum is performed. Images are reviewed in the transverse and longitudinal planes. FINDINGS: RIGHT HEMISCROTUM: The right testis measures 4.1 x 2.9 x 1.9 cm and the parenchyma appears unremarkable. No intratesticular mass is seen. Normal- appearing arterial inflow is present within the right testicle. The right e pididymal head appears normal. No varicocele or hydrocele is identified. LEFT HEMISCROTUM: The left testis measures 4.4 x 2.4 x 1.9 cm and the parenchyma appears unremarkable. No intratesticular mass is seen. Normal-appearing arterial inflow is present within the left testicle. The left epididymal head appears normal. No varicocele or hydrocele is identified. Incidental note is made of small reducible fat filled inguinal hernias. IMPRESSION: 1. Normal sonographic appearance of the testicles. No testicular torsion or mass. 2. Small reducible fat filled inguinal hernias. ACT 112: Negative or not required by law. The above report was generated using voice recognition software. It may contain grammatical, syntax or spelling errors. Electronically signed by: Pernell King M.D. 08/08/2022 10:22 AM MDM Narrative I initially examined the patient in a triage protocol room due to prolonged ED wait times, but then reexamined the patient once he was moved to an emergency department bed. An IV lock was placed and labs were drawn. The patient was initially given morphine 4 mg IV and Zofran 4 mg IV for pain and nausea. He was given 1 L normal saline solution bolus. He was given an additional 4 mg morphine x 2 throughout his stay in the emergency department for continued pain. EKG was interpreted by myself as sinus tachycardia at 127 bpm with no acute ST or T wave changes. The patient's tachycardia does improve after pain medication, but then returns. White blood cell count elevated at 13.92, but no anemia. Coags were normal. Sodium low at 128 with a glucose of 140 and total bilirubin of 1.8. CMP otherwise without significant abnormalities. Lipase was normal. CRP elevated at 4.21 and ESR elevated at 42. Lactate normal at 1.7. Urinalysis negative for blood or UTI. COVID was negative. Scrotal ultrasound was reviewed by myself and read by radiology and showed small reducible fat filled inguinal hernias, but no other abnormalities. CT scan of the abdomen and pelvis with IV contrast was reviewed by myself and read by radiology as above and showed acute sigmoid diverticulitis with microperforation. There is a 2.3 cm fluid collection extending from the wall of the sigmoid into the adjacent mesocolon without well-defined allen, suspicious for developing abscess. No drainable fluid collection identified. Prostamegaly with urinary bladder wall thickening suggestive of chronic bladder outlet obstruction. Blood cultures were obtained and the patient was given Zosyn 4.5 g IV. I spoke with surgery in regards to the diverticulitis with microperforation and possible developing abscess. They recommended conservative care with IV antibiotics and admission by the hospitalist and they would continue to follow the patient during the admission. I spoke with the on-call hospitalist who agreed to admit the patient for further evaluation and treatment. Please refer to their dictations for further details. The patient's care was transferred in stable condition. Impression & Plan Perforation of sigmoid colon due to diverticulitis, Tachycardia, Right groin pain Discharge Plan Visit Data Chief Complaint: Groin Pain Stated Complaint: GROIN PAIN, RIGHT SIDE PAIN, NAUSEOUS ED Provider: Ron Junior ED Midlevel Provider: Lisa Morataya Patient Disposition: Admitted As Inpatient Condition: Good Prescriptions Prescriptions: No Action atorvastatin 40 mg tablet 40 mg PO HS Qty: 90 3RF clopidogrel 75 mg tablet See Rx Instructions .ROUTE .COMPLEX Qty: 30 5RF Dose Instruction: TAKE 1 TABLET BY MOUTH EVERY MORNING Rx Instructions: TAKE 1 TABLET BY MOUTH EVERY MORNING valsartan-hydrochlorothiazide 80-12.5 mg tablet 1 tab PO BID Qty: 180 3RF aspirin 81 mg Tablet,Delayed Release (Dr/Ec) 81 mg PO DAILY
[2022-08-08] MEDS ORDERED: MoRPHine SULFATE 4 MG/ML 1 ML CARP\\VIAL IV STA ×3 (08:26→12:01)
[2022-08-08 09:02] LABS: Basophils # (auto) 0.06 K/uL (0-0.2); Basophils % (auto) 0.4 %; Eosinophils # (auto) 0.04 K/uL (0-0.50); Eosinophils % (auto) 0.3 %; Hematocrit (blood only) 42.6 % (40.1-51.0); Hemoglobin 15.1 g/dl (14.0-18.0); Immature Granulocytes # (auto) 0.11 K/uL (0.00-0.02); Immature Granulocytes % (auto) 0.8 %; Lymphocytes # (auto) 1.39 K/uL (1.2-3.4); Mean Corpuscular Hemoglobin 32.2 pg (25.0-34.0); Mean Corpuscular Hgb Conc 35.4 g/dL (32.0-36.0); Mean Corpuscular Volume 90.8 fL (80.0-100.0); Monocytes # (auto) 1.33 K/uL (0.24-0.82); Monocytes % (auto) 9.6 %; Neutrophils # (auto) 10.99 K/uL (1.4-6.5); Neutrophils % (auto) 78.9 %; Platelet Count 246 K/uL (130-400); RDW Coefficient of Variation 12.4 % (11.5-14.5); RDW Standard Deviation 41.1 fL (36.4-46.3); Red Blood Count 4.69 M/uL (4.63-6.08); White Blood Count 13.92 K/ul (4.8-10.8)
[2022-08-08 09:24] LABS: Albumin Globulin Ratio 1.1 (0.9-2); Albumin Level 4.3 gm/dl (3.4-5.0); BUN Creatinine Ratio 13.3 (10-20); Bilirubin,Total 1.8 mg/dl (0.2-1.0); Calcium 10.3 mg/dl (8.5-10.1); Creatinine Clr Calc Pharmacy 64.1 ml/min; Est GFR (African American) 65.2 ml/min; Est GFR (Non-African American) 56.3 ml/min; Potassium 4.2 mmol/L (3.5-5.1); Total Protein 8.3 gm/dl (6.0-8.3)
--- NOTE | 2022-08-08 10:23 | Ultrasound Report ---
US scrotum/testicle CLINICAL HISTORY: 62 years-old Male with Testicular pain and RLQ pain. Acute right-sided scrotal patricia n COMPARISON STUDY: CT abdomen and pelvis 10/14/2013 TECHNIQUE: Real-time, grayscale, and color Doppler sonography of the testes and scrotum is performed. Images are reviewed in the transverse and longitudinal planes. FINDINGS: RIGHT HEMISCROTUM: The right testis measures 4.1 x 2.9 x 1.9 cm and the parenchyma appears unremarkab le. No intratesticular mass is seen. Normal-appearing arterial inflow is present within the right miri ticle. The right epididymal head appears normal. No varicocele or hydrocele is identified. LEFT HEMISCROTUM: The left testis measures 4.4 x 2.4 x 1.9 cm and the parenchyma appears unremarkable . No intratesticular mass is seen. Normal-appearing arterial inflow is present within the left testic le. The left epididymal head appears normal. No varicocele or hydrocele is identified. Incidental note is made of small reducible fat filled inguinal hernias. IMPRESSION: 1. Normal sonographic appearance of the testicles. No testicular torsion or mass. 2. Small reducible fat filled inguinal hernias. ACT 112: Negative or not required by law. The above report was generated using voice recognition software. It may contain grammatical, syntax o r spelling errors. Electronically signed by: Pernell King M.D. 08/08/2022 10:22 AM
[2022-08-08 10:42] LABS: Appearance Urine Clear (Clear); Bilirubin Urine Negative (Negative); Blood Urine Negative (Negative); Color Urine Orange; Glucose Urine UA Negative (Negative); Ketones Urine Negative (Negative); Leukocyte Esterase Urine Negative (Negative); Nitrite Urine Negative (Negative); Protein Urine Negative (Negative); Specific Gravity Urine 1.006 (1.000-1.030); Urobilinogen Urine Negative (Negative); pH Urine 6.5 (4.5-7.5)
[2022-08-08] MEDS ORDERED: OPTIRAY 350 100ml IV ONE (11:10)
--- NOTE | 2022-08-08 11:36 | CT Scan Report ---
ABDOMEN AND PELVIS CT WITH IV CONTRAST CT DOSE: 797.06 mGy.cm HISTORY: Acute right lower quadrant abdominal pain RLQ abdominal pain TECHNIQUE: Multiaxial CT images of the abdomen and pelvis were performed following the IV administrat ion of 84 cc of Optiray, A dose lowering technique was utilized adhering to the principles of ALARA. COMPARISON STUDY: Scrotal ultrasound of same day, CT abdomen and pelvis 10/14/2013 FINDINGS: Coronary artery calcifications. Clear lung bases. Unremarkable spleen, pancreas, gallbladde r and adrenal glands. Marginal nodularity of the liver suggestive of cirrhosis. No hepatic mass ident ified. Patency of the hepatic and portal veins. Unremarkable kidneys without hydronephrosis. Prostamegaly. Bladder wall thickening with partial diste ntion. Small fat filled inguinal hernias. Extensive atherosclerosis of the abdominal aorta and proxim al branch vessels with suggestion of high-grade stenosis involving the bilateral common femoral arter ies. Patent imaged superficial femoral arterial stents. No lymphadenopathy identified. No bowel obstruction. Acute sigmoid diverticulitis with 2.3 cm fluid collection extending from the wa ll of the sigmoid into the adjacent mesocolon, image 352 series 3 without well-defined allen. There a re a few foci of extraluminal air within the adjacent mesocolon. Normal appendix. Unremarkable soft t issues. Moderate L5-S1 intervertebral disc space narrowing. No acute fracture identified. IMPRESSION: 1. Acute sigmoid diverticulitis with microperforation. There is a 2.3 cm fluid collection extending f rom the wall of the sigmoid into the adjacent mesocolon without well-defined allen, suspicious for a developing abscess. No drainable fluid collection identified. 2. No bowel obstruction. 3. Prostamegaly with urinary bladder wall thickening suggestive of chronic bladder outlet obstruction . Correlate with urinalysis. 4. Additional findings as above. ACT 112: Negative or not required by law. The above report was generated using voice recognition software. It may contain grammatical, syntax o r spelling errors. Electronically signed by: Pernell King M.D. 08/08/2022 11:33 AM
[2022-08-08] MEDS ORDERED: PIPERACILLIN/TAZOBACTAM 4.5 GM/120 ML BAG IV ONE (12:05)
--- NOTE | 2022-08-08 12:42 | History & Physical Report ---
Date of Service August 08, 2022 Assessment & Plan (1) Perforation of sigmoid colon due to diverticulitis: Plan: 2.3 cm abscess NPO - no ice chips or sips initially, IV fluids IV Zosyn Consult general surgery (2) Colitis: Plan: Previous colonoscopy in April 2019 showing mild left-sided colitis, biopsy with chronic colitis in sigmoid and rectum. Suspected inflammatory bowel disease due to ischemia versus segmental colitis associated diverticulosis Did not tolerate mesalamine recently prescribed by gastroenterology in May Follow-up colonoscopy with gastroenterology in 4 to 6 weeks after resolution of diverticulitis (3) Acute hyponatremia: Plan: Suspect secondary to hydrochlorothiazide Stop hydrochlorothiazide Normal saline 1L bolus then at 125 mils per hour (4) Diabetes mellitus, type 2: Plan: Hemoglobin A1c 6.5 Consider insulin sliding scale once diet is reintroduced (5) Hyperlipidemia: Plan: Hold atorvastatin while n.p.o. (6) Benign essential hypertension: Plan: Hold valsartan hydrochlorothiazide while n.p.o. (7) Peripheral arterial disease: Plan: S/p bilateral femoral-popliteal bypass graft with Madison-Atilio in 2013 S/p angioplasty of bilateral bypass grafts [id number] S/p multiple angioplasty, laser atherectomy, shockwave medical lithotripsy of bilateral lower extremities 2015, 2017, 2020 S/p bilateral EIA/CREATIVE DEVELOPER/DFA lithotripsy/angioplasty, bilateral DFA PRAKASH-angioplasty and L pop angioplasty 03/2022 Restart aspirin, clopidogrel, atorvastatin when able to restart his diet and surgery Plan VTE prophylaxis - Lovenox 40mg SQ daily Diet - NPO Disposition - admit to [facility] History of Present Illness Chief Complaint: Abdominal pain Primary Care Provider: Vasiliy Moreno, III, CAROLINE John King is a 62-year-old male who presents to the ER with right-sided abdominal pain radiating to his testicle. He reports a similar episode 2 to 4 weeks ago with abdominal sharp pain in the right lower quadrant which was severe for 2 days but progressively improved over another few days. No fever or chills. No change in bowel habits. Current episode started on Sunday night (2 days ago), worse on lying down, severity 8/10 currently, 10/10 at worst. Suprapubic and right lower quadrant pain radiating to his right testicle. No fevers or chills. No diarrhea or constipation. No nausea or vomiting. Colonoscopy in April 2019 showed mild left-sided colitis with biopsy showing chronic colitis in sigmoid and rectum. Diagnosed with likely inflammatory bowel disease due to ischemia vs. segmental colitis associated with diverticulosis. He was started on mesalamine May reportedly could not tolerate this. The ER CT abdomen pelvis with IV contrast showed no acute sigmoid diverticulitis with microperforation. Allergies Allergy/AdvReac Type Severity Reaction Status Date / Time lisinopril AdvReac Severe COUGH Verified 08/08/22 15:22 Home Medications Medication Instructions Recorded Confirmed Type aspirin 81 mg tablet,delayed 81 mg PO DAILY 11/09/21 08/08/22 History release atorvastatin 40 mg tablet 40 mg PO HS #90 tabs 11/28/21 08/08/22 Rx clopidogrel 75 mg tablet See Rx Instructions .Route 01/09/22 08/08/22 Rx .COMPLEX #30 tabs valsartan 80 1 tab PO BID #180 tabs 06/27/22 08/08/22 Rx mg-hydrochlorothiazide 12.5 mg tablet Past Med/Surg History Medical History Adenomatous colon polyp Alcohol abuse, unspecified Barretts esophagus Benign essential hypertension Chronic hepatitis C without mention of hepatic coma Diabetes mellitus, type 2 TAKES NO MEDS/ DIET/ EXERCISE History of irregular heartbeat HX- HAD EKG AT [facility] THIS YEAR- SEES DR AT [facility]- PER THAT DOCTOR, NO ISSUES OR PROBLEMS Hyperlipidemia Neoplasm of soft tissues of head PAD (peripheral artery disease) Right leg pain S/P angiogram of extremity Tobacco use disorder Tubular adenoma of colon Surgical History Cyst REMOVED FROM BACK OF HEAD History of carpal tunnel release BILAT History of colonoscopy History of esophagogastroduodenoscopy (EGD) History of open reduction and internal fixation (ORIF) procedure RT LEG (HARDWARE INTACT) History of right cataract surgery Hx of vascular surgery BILAT UPPER ARTERIAL "POP" 5 YRS AGO- AT [facility]- FOLLOWS WITH [facility] (NO STENTS) Nausea and vomiting after administration of anesthetic agent Family History Mother Family history of diabetes mellitus Myocardial infarction Diabetes Stroke Father Myocardial infarction Cancer Brother Stroke Other Hypertension Denies family history of Ovarian cancer Prostate cancer Breast cancer Colorectal cancer Social History Smoking Status: Former smoker Tobacco Type: Cigarettes Age Started Using Tobacco: 17; Age Quit Using Tobacco: 49; packs per day: 1; Second Hand Exposure: Yes; Do You Dip or Chew Tobacco: No; Hx Alcohol Use: Yes Alcohol type: beer Hx Substance Use: No Preferred Language: Portuguese Communication Ability: Effective Visual Impairment: No Limitations Hearing Ability: Normal Pharmacy Manager Required: No Beliefs That Will Affect Care: None marital status: Current Living Situation: Spouse current occupational status: employed current occupation: [employer] Feels Safe at Home: Yes Safety Concerns: Feels Safe At This Time Childhood Exposure to Second-Hand Smoke: Yes Diet Comment: regular Dental Care, Regularly: Yes Physical Activity Frequency: 5-6 Times per Week Seatbelt Use: always Sunscreen Use: Yes Assistive Devices: None Review of Systems Review of Systems: All systems reviewed & are unremarkable except as noted in HPI & below Physical Exam Constitutional: WD/WN, vitals as above Respiratory: normal respiratory effort, lungs clear to auscultation Cardiovascular: RRR, no murmur, no edema Gastrointestinal (Abdomen): Inspection/Auscultation: abdomen not distended Percussion/Palpation: + abdomen tender (RLQ) and abdomen soft; no guarding and abdomen not rigid Musculoskeletal: no cyanosis or clubbing, extremities motor strength 5/5 Skin: no rashes, warm and dry Neurologic: moves all extremities and awake; not confused Psychiatric: A+Ox3, euthymic affect Genitourinary: no CVA tenderness Results & Data Results & Data ([facility]) Vital Signs (Past 12 Hours) Vital Signs Temp Pulse Pulse Resp BP BP Pulse Ox 08/08/22 11:50 104 H 17 93 08/08/22 11:40 107 H 19 93 08/08/22 11:30 108 H 18 94 08/08/22 11:20 106 H 19 96 08/08/22 11:16 121 H 24 100 08/08/22 10:29 118 H 18 120/85 96 08/08/22 08:02 36.4 C L 127 H 18 145/94 H 97 O2 Del Method 08/08/22 11:50 08/08/22 11:40 08/08/22 11:30 08/08/22 11:20 08/08/22 11:16 08/08/22 10:29 Room Air 08/08/22 08:02 Room Air Laboratory Results Abnormal lab results 08/08/22 08/08/22 Range/Units 08:30 08:30 WBC 13.92 H (4.8-10.8) K/ul Neut # (Auto) 10.99 H (1.4-6.5) K/uL [place] # (Auto) 1.33 H (0.24-0.82) K/uL Immature Gran # (Auto) 0.11 H (0.00-0.02) K/uL Sodium 128 L (136-145) mmol/L Chloride 90 L (98-107) mmol/L Glucose 140 H (70-99(Fasting)) mg/dl Calcium 10.3 H (8.5-10.1) mg/dl Total Bilirubin 1.8 H (0.2-1.0) mg/dl Diagnostic Findings ABDOMEN AND PELVIS CT WITH IV CONTRAST CT DOSE: 797.06 mGy.cm HISTORY: Acute right lower quadrant abdominal pain RLQ abdominal pain TECHNIQUE: Multiaxial CT images of the abdomen and pelvis were performed following the IV administration of 84 cc of Optiray, A dose lowering technique was utilized adhering to the principles of ALARA. COMPARISON STUDY: Scrotal ultrasound of same day, CT abdomen and pelvis 10/14/2013 FINDINGS: Coronary artery calcifications. Clear lung bases. Unremarkable spleen, pancreas, gallbladder and adrenal glands. Marginal nodularity of the liver suggestive of cirrhosis. No hepatic mass identified. Patency of the hepatic and portal veins. Unremarkable kidneys without hydronephrosis. Prostamegaly. Bladder wall thickening with partial distention. Small fat filled inguinal hernias. Extensive atherosclerosis of the abdominal aorta and proximal branch vessels with suggestion of high-grade stenosis involving the bilateral common femoral arteries. Patent imaged superficial femoral arterial stents. No lymphadenopathy identified. No bowel obstruction. Acute sigmoid diverticulitis with 2.3 cm fluid collection extending from the wall of the sigmoid into the adjacent mesocolon, image 352 series 3 without well-defined allen. There are a few foci of extraluminal air within the adjacent mesocolon. Normal appendix. Unremarkable soft tissues. Moderate L5-S1 intervertebral disc space narrowing. No acute fracture identified. IMPRESSION: 1. Acute sigmoid diverticulitis with microperforation. There is a 2.3 cm fluid collection extending from the wall of the sigmoid into the adjacent mesocolon without well-defined allen, suspicious for a developing abscess. No drainable fluid collection identified. 2. No bowel obstruction. 3. Prostamegaly with urinary bladder wall thickening suggestive of chronic bladder outlet obstruction. Correlate with urinalysis. 4. Additional findings as above. Medications Administered ER medications given: Ondansetron 4 mg IV NSS 1 hour bolus Morphine 4 mg IV x3 Zosyn 4.5 g IV ECG Indication: abdominal pain Rate (beats per minute): 127 Rhythm: sinus tachycardia Findings: no acute ischemic change Comparison ECG Date: from (November 09, 2021) Change: the following changes noted (Rate increased but otherwise no changes) Code Status & VTE Plan Code Status Full VTE Prophylaxis Plan VTE Prophylaxis will be ordered: Yes PG Care Time/CCT Total # of Minutes Spent Total Time Spent with Patient: Total time spent is greater than 50% in coordination of care (as documented) at patient's floor/unit and/or counseling patient: Coding Level of Care Code 13847 INT INP/OBS CARE MIN Diagnoses Perforation of sigmoid colon due to diverticulitis K57.20 Colitis K52.9 Acute hyponatremia E87.1 Diabetes mellitus, type 2 E11.9 Hyperlipidemia E78.5 Benign essential hypertension I10 Peripheral arterial disease I73.9
[2022-08-08 12:48] LABS: Partial Thromboplastin Time 28.4 Seconds (21.0-31.0); Prothrombin Time 10.9 Seconds (9.0-12.0)
--- NOTE | 2022-08-08 12:56 | Surgery Consultation ---
Date of Consultation August 08, 2022 Assessment & Plan (1) Perforation of sigmoid colon due to diverticulitis: This is a 62yM with a PMH of DM2, HTN, HLD, hepatitis C, peripheral vascular disease s/p popliteal bypass on asa and plavix, who presents to the [facility] on 08/08/22 with complaints of RLQ abdominal pain starting Sunday night. In the ER a CT a/p was performed that revealed "acute sigmoid diverticulitis with microperforation. There is a 2.3 cm fluid collection extending from the wall of the sigmoid into the adjacent mesocolon without well-defined allen, suspicious for a developing abscess. No drainable fluid collection identified." WBC13.9, Na 128, Cr 4.2, Cr 1.3. Vital signs show patient is tachycardic from 100-120s, afebrile. On exam patient's abdomen is distended with tenderness to palpation in the RLQ. For now we will give the patient a trial of conservative measures. Keep NPO with IVF hydration and start IV abx. Would prefer to hold patient's plavix if possible given the possibility of necessitating surgery this admission pending his progress. If surgical intervention required patient will most likely have a temporary ostomy and this was discussed with the patient. Supervising Physician Co-Signing Physician Notes I personally saw and examined the patient with Samira Larkin PA-C and agree with the assessment and plan. 62-year-old male with acute diverticulitis with microperforation CT images and results personally viewed by myself, he does have some acute slight sigmoid diverticulitis with some localized free air adjacent to the colon No plans for emergent operation at this time Continue n.p.o., IV antibiotics We will continue to watch his abdominal exam History of Present Illness History of Present Illness This is a 62yM with a PMH of DM2, HTN, HLD, hepatitis C, peripheral vascular disease s/p popliteal bypass on asa and plavix, who presents to the [facility] on 08/08/22 with complaints of RLQ abdominal pain. Patient states he did have an episode of a stomach bug a couple of weeks ago. After that he improved but then developed acute onset of pain that woke him up from his sleep on Sunday night. The patient states that the next day he mostly laid on the couch and did not do much. The pain improved some, but then returned in worsening severity. He was concerned and presented to the ER for further evaluation. Patient reports pain is mostly located in the RLQ and radiates into the testicle. In the ER a CT a/p was performed that revealed "acute sigmoid diverticulitis with microperforation. There is a 2.3 cm fluid collection extending from the wall of the sigmoid into the adjacent mesocolon without well-defined allen, suspicious for a developing abscess. No drainable fluid collection identified." Patient reports chills, no fevers, no emesis. Has history of colonoscopy and follows with Dr. Peter. Was scheduled for EGD/colonoscopy with him this upcoming 09/05/22. Last ate 2 days ago. Small BMs yesterday. No past surgical history on the abdomen. Allergies Allergy/AdvReac Type Severity Reaction Status Date / Time lisinopril AdvReac Severe COUGH Verified 06/22/22 11:34 Home Medications Medication Instructions Recorded Confirmed Type aspirin 81 mg tablet,delayed 81 mg PO DAILY 11/09/21 08/08/22 History release atorvastatin 40 mg tablet 40 mg PO HS #90 tabs 11/28/21 08/08/22 Rx clopidogrel 75 mg tablet See Rx Instructions .Route 01/09/22 08/08/22 Rx .COMPLEX #30 tabs valsartan 80 1 tab PO BID #180 tabs 06/27/22 08/08/22 Rx mg-hydrochlorothiazide 12.5 mg tablet Patient History Medical History Adenomatous colon polyp Alcohol abuse, unspecified Barretts esophagus Benign essential hypertension Diabetes mellitus, type 2 TAKES NO MEDS/ DIET/ EXERCISE History of irregular heartbeat HX- HAD EKG AT [facility] THIS YEAR- SEES DR AT [facility]- PER THAT DOCTOR, NO ISSUES OR PROBLEMS Hyperlipidemia Neoplasm of soft tissues of head PAD (peripheral artery disease) Right leg pain S/P angiogram of extremity Tobacco use disorder Tubular adenoma of colon Surgical History Cyst REMOVED FROM BACK OF HEAD History of carpal tunnel release BILAT History of colonoscopy History of esophagogastroduodenoscopy (EGD) History of open reduction and internal fixation (ORIF) procedure RT LEG (HARDWARE INTACT) History of right cataract surgery Hx of vascular surgery BILAT UPPER ARTERIAL "POP" 5 YRS AGO- AT [facility]- FOLLOWS WITH [facility] (NO STENTS) Nausea and vomiting after administration of anesthetic agent Family History Mother Family history of diabetes mellitus Myocardial infarction Diabetes Stroke Father Myocardial infarction Cancer Brother Stroke Other Hypertension Denies family history of Ovarian cancer Prostate cancer Breast cancer Colorectal cancer Social History Smoking Status: Former smoker Tobacco Type: Cigarettes Age Started Using Tobacco: 17; Age Quit Using Tobacco: 49; packs per day: 1; Second Hand Exposure: Yes; Hx Alcohol Use: Yes Alcohol type: beer Hx Substance Use: No Preferred Language: Greenlandic Communication Ability: Effective Visual Impairment: No Limitations Hearing Ability: Normal Log Hauler Required: No Beliefs That Will Affect Care: None marital status: Current Living Situation: Spouse current occupational status: employed current occupation: [employer] Feels Safe at Home: Yes Childhood Exposure to Second-Hand Smoke: Yes Diet Comment: regular Dental Care, Regularly: Yes Physical Activity Frequency: 5-6 Times per Week Seatbelt Use: always Sunscreen Use: Yes Assistive Devices: Contacts and Glasses Review of Systems Constitutional: + chills and + anorexia; no fever Respiratory: no dyspnea Cardiovascular: no chest pain Gastrointestinal: + abdominal pain (RLQ into R testicular region), + bloating and + nausea; no vomiting Physical Exam 2 Physical Exam: awake/alert Respiratory: normal respiratory effort; no respiratory distress Gastrointestinal (Abdomen): Inspection/Auscultation: + abdomen distended Percussion/Palpation: + abdomen tender (ttp in the RLQ) and abdomen soft Results & Data ([facility]) Vital Signs (Past 12 Hours) Vital Signs Temp Pulse Pulse Resp BP BP Pulse Ox 08/08/22 11:50 104 H 17 93 08/08/22 11:40 107 H 19 93 08/08/22 11:30 108 H 18 94 08/08/22 11:20 106 H 19 96 08/08/22 11:16 121 H 24 100 08/08/22 10:29 118 H 18 120/85 96 08/08/22 08:02 36.4 C L 127 H 18 145/94 H 97 O2 Del Method 08/08/22 11:50 08/08/22 11:40 08/08/22 11:30 08/08/22 11:20 08/08/22 11:16 08/08/22 10:29 Room Air 08/08/22 08:02 Room Air Diagnostic Findings ABDOMEN AND PELVIS CT WITH IV CONTRAST CT DOSE: 797.06 mGy.cm HISTORY: Acute right lower quadrant abdominal pain RLQ abdominal pain TECHNIQUE: Multiaxial CT images of the abdomen and pelvis were performed following the IV administration of 84 cc of Optiray, A dose lowering technique was utilized adhering to the principles of ALARA. COMPARISON STUDY: Scrotal ultrasound of same day, CT abdomen and pelvis 10/14/2013 FINDINGS: Coronary artery calcifications. Clear lung bases. Unremarkable spleen, pancreas, gallbladder and adrenal glands. Marginal nodularity of the liver suggestive of cirrhosis. No hepatic mass identified. Patency of the hepatic and portal veins. Unremarkable kidneys without hydronephrosis. Prostamegaly. Bladder wall thickening with partial distention. Small fat filled inguinal hernias. Extensive atherosclerosis of the abdominal aorta and proximal branch vessels with suggestion of high-grade stenosis involving the bilateral common femoral arteries. Patent imaged superficial femoral arterial stents. No lymphadenopathy identified. No bowel obstruction. Acute sigmoid diverticulitis with 2.3 cm fluid collection extending from the wall of the sigmoid into the adjacent mesocolon, image 352 series 3 without well-defined allen. There are a few foci of extraluminal air within the adjacent mesocolon. Normal appendix. Unremarkable soft tissues. Moderate L5-S1 intervertebral disc space narrowing. No acute fracture identified. IMPRESSION: 1. Acute sigmoid diverticulitis with microperforation. There is a 2.3 cm fluid collection extending from the wall of the sigmoid into the adjacent mesocolon without well-defined allen, suspicious for a developing abscess. No drainable fluid collection identified. 2. No bowel obstruction. 3. Prostamegaly with urinary bladder wall thickening suggestive of chronic bladder outlet obstruction. Correlate with urinalysis. 4. Additional findings as above. ACT 112: Negative or not required by law. The above report was generated using voice recognition software. It may contain grammatical, syntax or spelling errors. Electronically signed by: Pernell King M.D. 08/08/2022 11:33 AM S scrotum/testicle CLINICAL HISTORY: 62 years-old Male with Testicular pain and RLQ pain. Acute right-sided scrotal pain COMPARISON STUDY: CT abdomen and pelvis 10/14/2013 TECHNIQUE: Real-time, grayscale, and color Doppler sonography of the testes and scrotum is performed. Images are reviewed in the transverse and longitudinal planes. FINDINGS: RIGHT HEMISCROTUM: The right testis measures 4.1 x 2.9 x 1.9 cm and the parenchyma appears unremarkable. No intratesticular mass is seen. Normal- appearing arterial inflow is present within the right testicle. The right epididymal head appears normal. No varicocele or hydrocele is identified. LEFT HEMISCROTUM: The left testis measures 4.4 x 2.4 x 1.9 cm and the parenchyma appears unremarkable. No intratesticular mass is seen. Normal-appearing arterial inflow is present within the left testicle. The left epididymal head appears normal. No varicocele or hydrocele is identified. Incidental note is made of small reducible fat filled inguinal hernias. IMPRESSION: 1. Normal sonographic appearance of the testicles. No testicular torsion or mass. 2. Small reducible fat filled inguinal hernias. ACT 112: Negative or not required by law. The above report was generated using voice recognition software. It may contain grammatical, syntax or spelling errors. Electronically signed by: Pernell King M.D. 08/08/2022 10:22 AM PG Care Time/CCT Total # of Minutes Spent Total Time Spent with Patient: Total time spent is greater than 50% in coordination of care (as documented) at patient's floor/unit and/or counseling patient: Coding Level of Care Code INP/OBS CONSULT LVL 3, 45 MIN Diagnoses Perforation of sigmoid colon due to diverticulitis K57.20
[2022-08-08] MEDS ORDERED: SODIUM CHLORIDE 0.9% 1000ML 1,000 ML IV ONE (15:32)
[2022-08-08] MEDS ORDERED: ONDANSETRON INJ 2 MG/ML 2 ML VIAL IV PRN (16:20)
[2022-08-08] MEDS: MoRPHine SULFATE 4 MG/ML 1 ML CARP\\VIAL IV PRN ×2 (17:17→21:59)
[2022-08-08] MEDS: SODIUM CHLORIDE 0.9% 1000ML 1,000 ML IV SCH (19:03)
[2022-08-08] MEDS: PIPERACILLIN/TAZOBACTAM 3.375 GM in DEXTROSE 5% 100 ML IV SCH (19:15)
[2022-08-08] MEDS: ACETAMINOPHEN 1,000 MG/100 ML VIAL IV PRN (21:58)
[2022-08-08] MEDS ORDERED: ENOXAPARIN INJ 40 MG/0.4 ML SYR SQ SCH (22:20)
[2022-08-08] MEDS ORDERED: Nursing to Pharmacy Communication SCH (23:45)
[2022-08-09] MEDS: MoRPHine SULFATE 4 MG/ML 1 ML CARP\\VIAL IV PRN ×4 (02:15→18:06)
[2022-08-09] MEDS: SODIUM CHLORIDE 0.9% 1000ML 1,000 ML IV SCH (03:00)
[2022-08-09] MEDS: PIPERACILLIN/TAZOBACTAM 3.375 GM in DEXTROSE 5% 100 ML IV SCH ×3 (03:38→18:06)
[2022-08-09] MEDS: ACETAMINOPHEN 1,000 MG/100 ML VIAL IV PRN ×3 (06:19→21:46)
[2022-08-09 08:36] LABS: Albumin Level 3.6 gm/dl (3.4-5.0); Bilirubin,Total 2.2 mg/dl (0.2-1.0); Calcium 8.7 mg/dl (8.5-10.1); Potassium 3.8 mmol/L (3.5-5.1)
[2022-08-09 08:42] LABS: Albumin Globulin Ratio 1.2 (0.9-2); Creatinine Clr Calc Pharmacy 81.7 ml/min; Est GFR (African American) 87.4 ml/min; Est GFR (Non-African American) 75.4 ml/min; Globulin 3.1 gm/dl (2.5-4.0); Total Protein 6.7 gm/dl (6.0-8.3)
[2022-08-09 08:50] LABS: Basophils # (auto) 0.05 K/uL (0-0.2); Basophils % (auto) 0.4 %; Eosinophils % (auto) 0.7 %; Hematocrit (blood only) 33.9 % (40.1-51.0); Hemoglobin 11.9 g/dl (14.0-18.0); Immature Granulocytes # (auto) 0.15 K/uL (0.00-0.02); Immature Granulocytes % (auto) 1.1 %; Lymphocytes # (auto) 0.84 K/uL (1.2-3.4); Lymphocytes % (auto) 6.1 %; Mean Corpuscular Hemoglobin 32.4 pg (25.0-34.0); Mean Corpuscular Hgb Conc 35.1 g/dL (32.0-36.0); Mean Corpuscular Volume 92.4 fL (80.0-100.0); Monocytes # (auto) 0.97 K/uL (0.24-0.82); Monocytes % (auto) 7.1 %; Neutrophils # (auto) 11.58 K/uL (1.4-6.5); Neutrophils % (auto) 84.6 %; Platelet Count 143 K/uL (130-400); RDW Coefficient of Variation 12.4 % (11.5-14.5); RDW Standard Deviation 42.2 fL (36.4-46.3); Red Blood Count 3.67 M/uL (4.63-6.08); White Blood Count 13.69 K/ul (4.8-10.8)
[2022-08-09] MEDS: ENOXAPARIN INJ 40 MG/0.4 ML SYR SQ SCH (09:16)
--- NOTE | 2022-08-09 10:11 | Surgery Progress Note ---
Date of Service August 09, 2022 Assessment & Plan (1) Perforation of sigmoid colon due to diverticulitis: Plan: Pt here with concern for acute sigmoid diverticulitis with microperforation and developing 2.3 cm abscess WBC stable at 13. Vitals are stable, HRs improving. Afebrile Feeling a bit better today, but still with localized tenderness in the RLQ Continue IVF, NPO, and IV abx for today Will follow closely. If no meaningful improvement over next couple of days will consider re-scanning Admission and Anticipated Discharge Date Admission Date: August 08, 2022 Supervising Physician Co-Signing Physician Notes I personally saw and examined the patient with Samira Larkin PA-C and agree with the assessment and plan. 62-year-old male with acute diverticulitis with microperforation He is mildly improved today and his tachycardia has resolved Will continue n.p.o. and IV antibiotics at this time He still has a mild leukocytosis of 13 We will continue to follow Subjective Patient feeling mild improvement in symptoms. No further episodes of sharp pain. The pain medication helps him, but has more noticeable pain with movement. No n/v. Physical Exam Physical Exam: awake/alert Respiratory: normal respiratory effort; no respiratory distress Gastrointestinal (Abdomen): Inspection/Auscultation: + abdomen distended (mild) Percussion/Palpation: + abdomen tender (ttp in the RLQ) and abdomen soft Results & Data ([facility]) Vital Signs (Past 12 Hours) Vital Signs Temp Pulse Pulse Resp BP Pulse Ox O2 Del Method 08/09/22 07:09 36.9 C 76 16 111/70 93 Room Air 08/08/22 22:12 36.8 C 82 16 142/87 H 97 Room Air PG Care Time/CCT Total # of Minutes Spent Total Time Spent with Patient: Total time spent is greater than 50% in coordination of care (as documented) at patient's floor/unit and/or counseling patient: Coding Level of Care Code 98225 SUB INP/OBS CARE 08/16MIN Diagnoses Perforation of sigmoid colon due to diverticulitis K57.20
[2022-08-09] MEDS ORDERED: GLUCOSE 10 TAB/TUBE PO PRN (12:11)
[2022-08-09] MEDS ORDERED: CARBOHYDRATES FOR HYPOGLYCEMIA PO PRN (12:11)
[2022-08-09] MEDS ORDERED: GLUCAGON FOR INJ 1 MG VIAL SQ PRN (12:11)
[2022-08-09] MEDS ORDERED: GLUCOSE 40% GEL 15 GM TUBE PO PRN (12:11)
[2022-08-09] MEDS ORDERED: DEXTROSE 50% 50 ML SYRINGE IV PRN (12:11)
--- NOTE | 2022-08-09 12:14 | Hospitalist Progress Note ---
Date of Service August 09, 2022 Assessment & Plan (1) Perforation of sigmoid colon due to diverticulitis: Plan: Symptomatically improved - Continue with NPO, IVF, Antibiotics- Zosyn - Blood cultures pending - Leukocytosis stable- afebrile overnight and improved Tachycardia - Re-image next 24-48 hours evaluate abscess - Appreciate surgical evaluation and consultation (2) Colitis: Plan: Previous colonoscopy in April 2019 showing mild left-sided colitis, biopsy with chronic colitis in sigmoid and rectum. Suspected inflammatory bowel disease due to ischemia versus segmental colitis associated diverticulosis Follow-up colonoscopy with gastroenterology in 4 to 6 weeks after resolution of diverticulitis Reports remaining with inconsistent bowel habits with constipation and diarrhea (3) Acute hyponatremia: Plan: Hyponatremia- acute Likely hypovolemic hyponatremic aggravated by HCTZ use- in the setting of decrease oral solute intake secondary to #1 - improved this morning to 131 - Continue Normal saline 1L bolus then at 125 mils per hour - Continue to hold HCTZ (4) Diabetes mellitus, type 2: Plan: Hemoglobin A1c 6.5 Consider insulin sliding scale once diet is reintroduced - AC/HS finger sticks- notify if >180mg/dl on 2 consecutive checks - hypoglycemia protocol while NPO as well (5) Hyperlipidemia: Plan: Hold atorvastatin while n.p.o. (6) Benign essential hypertension: Plan: Hold valsartan hydrochlorothiazide until hemodynamics proven and euvolemia - can initiate PRN IV anti-hypertensives IF required - Improved renal indices (7) Peripheral arterial disease: Plan: History of: Not acute S/p bilateral femoral-popliteal bypass graft with [place]-Atilio in 2013 S/p angioplasty of bilateral bypass grafts 2015x2 S/p multiple angioplasty, laser atherectomy, shockwave medical lithotripsy of bilateral lower extremities 2015, 2017, 2020 S/p bilateral EIA/SENIOR PYTHON DEVELOPER/DFA lithotripsy/angioplasty, bilateral DFA PRAKASH-angioplasty and L pop angioplasty 03/2022 Restart aspirin, clopidogrel, atorvastatin when able to restart his diet and surgery 08/10/22- re-image within next 48 hours to evaluate abscess- if improvement and non-surgical/IR resume ASA and Plavix Plan VTE prophylaxis - Lovenox 40mg SQ daily Diet - NPO Disposition - remain MedSurg Admission and Anticipated Discharge Date Admission Date: August 08, 2022 Supervising Physician Co-Signing Physician Notes Attending Attestation - Chart reviewed, care plan d/w CAROLINE Juarez. I agree w/ the [place] cast[place] components of his documentation. Cont IV abx therapy for acute sigmoid diverticulitis with small abscess (<2.5cm) & microperforation. Appreciate gen surg assistance. Ian Johnson MD Subjective 62 YOM HD #1 admitted for diverticulitis with abscess. Patient has been on antibiotics, NPO, IVF and pain control. Overall patient feels improvement in his symptoms this morning from an abdominal pain perspective. He is able to get out of bed, ambulate, and move around without the inhibiting pain. Remains with right groin radiation, but feels this is improved as well. Scrotal ultrasound negative for torsion or epididymitis. Afiebrile overnight, tachycardia resolved, and hemodynamically stable. Leukocytosis stable. Review of Systems Review of Systems: REVIEW OF SYSTEMS: Constitutional: (+) fever, sweats or chills- resolved Eyes: No diplopia, no worsening or blurred vision ENT: normal hearing, no trouble swallowing Respiratory: No cough, sputum, dyspnea at rest or on exertion Cardiovascular: No chest pain, tightness or palpitations Abdomen: (+) RLQ pain, NO nausea, vomiting, diarrhea or constipation Musculoskeletal: No joint pain, calf pain, swelling Neurologic: No weakness, numbness/tingling, or balance problems Psychiatric: No anxiety or depression Skin: No rash or itch Physical Exam Physical Exam: PHYSICAL EXAM: General: awake, alert, no apparent distress Head: Normocephalic, atraumatic ENT: PERRL, EOMI, no pharyngeal exudate, mucous membranes moist Neuro: AAO x 3, speech clear and appropriate, strength intact bilaterally 5/5, sensation intact and equal all extremities and dermatomes, no pronator drift Chest: equal rise and fall of the chest, no accessory muscle use, no heaves or thrills, Clear to auscultation, on room air, Cardiac: Regular rate and rhythm, skin warm dry, cap refill <3 seconds, peripheral pulses +2 no JVD, no murmur, no edema GI: NABS x 4 quadrants, soft, tender to palpation RLQ and suprapubic, no rebound, mild guarding : Spontaneously voiding, no pain, no CVA tenderness, Extremities: Normal inspection, no peripheral edema or erythema, calfs nontender to palpation Psych: Normal mood and affect Skin: no rash or erythema Results & Data Results & Data ([facility]) Vital Signs (Past 12 Hours) Vital Signs Temp Pulse Resp BP Pulse Ox O2 Del Method 08/09/22 07:09 36.9 C 76 16 111/70 93 Room Air Laboratory Results Abnormal lab results 08/08/22 08/08/22 08/09/22 Range/Units 08:30 08:30 07:33 WBC 13.69 H (4.8-10.8) K/ul RBC 3.67 L (4.63-6.08) M/uL Hgb 11.9 L D (14.0-18.0) g/dl Hct 33.9 L (40.1-51.0) % Neut # (Auto) 11.58 H (1.4-6.5) K/uL Lymph # (Auto) 0.84 L (1.2-3.4) K/uL [place] # (Auto) 0.97 H (0.24-0.82) K/uL Immature Gran # (Auto) 0.15 H (0.00-0.02) K/uL ESR 42 H (0-20) mm/hr Sodium (136-145) mmol/L Glucose (70-99(Fasting)) mg/dl Total Bilirubin (0.2-1.0) mg/dl C-Reactive Protein 4.21 H (0-0.5) mg/dl 08/09/22 Range/Units 07:33 WBC (4.8-10.8) K/ul RBC (4.63-6.08) M/uL Hgb (14.0-18.0) g/dl Hct (40.1-51.0) % Neut # (Auto) (1.4-6.5) K/uL Lymph # (Auto) (1.2-3.4) K/uL [place] # (Auto) (0.24-0.82) K/uL Immature Gran # (Auto) (0.00-0.02) K/uL ESR (0-20) mm/hr Sodium 131 L (136-145) mmol/L Glucose 104 H (70-99(Fasting)) mg/dl Total Bilirubin 2.2 H (0.2-1.0) mg/dl C-Reactive Protein (0-0.5) mg/dl Diagnostic Findings Abdomen/Pelvis CT 08/08/22 08:[address] WITH IV CONTRAST CT DOSE: 797.06 mGy.cm HISTORY: Acute right lower quadrant abdominal pain RLQ abdominal pain TECHNIQUE: Multiaxial CT images of the abdomen and pelvis were performed following the IV administration of 84 cc of Optiray, A dose lowering technique was utilized adhering to the principles of ALARA. COMPARISON STUDY: Scrotal ultrasound of same day, CT abdomen and pelvis 10/14/2013 FINDINGS: Coronary artery calcifications. Clear lung bases. Unremarkable spleen, pancreas, gallbladder and adrenal glands. Marginal nodularity of the liver suggestive of cirrhosis. No hepatic mass identified. Patency of the hepatic and portal veins. Unremarkable kidneys without hydronephrosis. Prostamegaly. Bladder wall thickening with partial distention. Small fat filled inguinal hernias. Extensive atherosclerosis of the abdominal aorta and proximal branch vessels with suggestion of high-grade stenosis involving the bilateral common femoral arteries. Patent imaged superficial femoral arterial stents. No lymphadenopathy identified. No bowel obstruction. Acute sigmoid diverticulitis with 2.3 cm fluid collection extending from the wall of the sigmoid into the adjacent mesocolon, image 352 series 3 without well-defined aleln. There are a few foci of extraluminal air within the adjacent mesocolon. Normal appendix. Unremarkable soft tissues. Moderate L5-S1 intervertebral disc space narrowing. No acute fracture identified. IMPRESSION: 1. Acute sigmoid diverticulitis with microperforation. There is a 2.3 cm fluid collection extending from the wall of the sigmoid into the adjacent mesocolon without well-defined allen, suspicious for a developing abscess. No drainable fluid collection identified. 2. No bowel obstruction. 3. Prostamegaly with urinary bladder wall thickening suggestive of chronic bladder outlet obstruction. Correlate with urinalysis. 4. Additional findings as above. ACT 112: Negative or not required by law. The above report was generated using voice recognition software. It may contain grammatical, syntax or spelling errors. Electronically signed by: Pernell King M.D. 08/08/2022 11:33 AM Scrotum Ultrasound 08/08/22 08:26 US scrotum/testicle CLINICAL HISTORY: 62 years-old Male with Testicular pain and RLQ pain. Acute right-sided scrotal pain COMPARISON STUDY: CT abdomen and pelvis 10/14/2013 TECHNIQUE: Real-time, grayscale, and color Doppler sonography of the testes and scrotum is performed. Images are reviewed in the transverse and longitudinal planes. FINDINGS: RIGHT HEMISCROTUM: The right testis measures 4.1 x 2.9 x 1.9 cm and the parenchyma appears unremarkable. No intratesticular mass is seen. Normal- appearing arterial inflow is present within the right testicle. The right epididymal head appears normal. No varicocele or hydrocele is identified. LEFT HEMISCROTUM: The left testis measures 4.4 x 2.4 x 1.9 cm and the parenchyma appears unremarkable. No intratesticular mass is seen. Normal-appearing arterial inflow is present within the left testicle. The left epididymal head appears normal. No varicocele or hydrocele is identified. Incidental note is made of small reducible fat filled inguinal hernias. IMPRESSION: 1. Normal sonographic appearance of the testicles. No testicular torsion or mass. 2. Small reducible fat filled inguinal hernias. ACT 112: Negative or not required by law. The above report was generated using voice recognition software. It may contain grammatical, syntax or spelling errors. Electronically signed by: Pernell King M.D. 08/08/2022 10:22 AM Medications Administered Enoxaparin Sodium (Enoxaparin Inj 40 Mg/0.4 Ml Syr) 40 mg SQ QAM PEDRO Stop: 09/08/22 08:59 Last Admin: 08/09/22 09:16 Dose: 40 mg Documented By: WILY Acetaminophen (Ofirmev) 1,000 mg in 100 mls @ 400 mls/hr IV Q8H PRN PRN Reason: Pain or Fever Stop: 08/11/22 16:19 Last Infusion: 08/09/22 06:36 Dose: 0 mls/hr Documented By: Admin: 08/09/22 06:19 Dose: 400 mls/hr Documented By: Infusion: 08/08/22 22:16 Dose: 0 mls/hr Documented By: Admin: 08/08/22 21:58 Dose: 400 mls/hr Documented By: USP Piperacillin Sod/Tazobactam (Sod 3.375 gm/ Dextrose) 115 mls @ 28.75 mls/hr IV Q8H PEDRO; Protocol Stop: 08/18/22 17:59 Last Admin: 08/09/22 10:28 Dose: 28.8 mls/hr Documented By: Infusion: 08/09/22 07:53 Dose: 0 mls/hr Documented By: RRSherine Admin: 08/09/22 03:38 Dose: 28.8 mls/hr Documented By: Infusion: 08/08/22 20:20 Dose: 0 mls/hr Documented By: Admin: 08/08/22 19:15 Dose: 28.8 mls/hr Documented By: [facility] Morphine Sulfate (Morphine Sulfate 4 Mg/Ml 1 Ml Carp\Vial) 2 mg IV Q6 PRN PRN Reason: Pain Stop: 08/22/22 09:59 Last Admin: 08/09/22 12:05 Dose: 2 mg Documented By: WILY Discontinued Medications Enoxaparin Sodium (Enoxaparin Inj 40 Mg/0.4 Ml Syr) 40 mg SQ QPM [facility] Stop: 09/07/22 22:19 Last Admin: 08/09/22 04:48 Dose: Not Given Documented By: BRANDY Sodium Chloride (Nss) 1,000 mls @ 999 mls/hr IV .Q1H1M STA Stop: 08/08/22 09:09 Last Infusion: 08/08/22 09:30 Dose: 0 mls/hr Documented By: Admin: 08/08/22 08:24 Dose: 999 mls/hr Documented By: ADILENE Piperacillin Sod/Tazobactam Sod (Zosyn) 4.5 gm in 120 mls @ 240 mls/hr IV NOW ONE Stop: 08/08/22 12:34 Last Infusion: 08/08/22 13:45 Dose: 0 mls/hr Documented By: [facility] Admin: 08/08/22 13:10 Dose: 240 mls/hr Documented By: [facility] Sodium Chloride (Nss 1000ml) 1,000 mls @ 999 mls/hr IV .Q1H1M ONE Stop: 08/08/22 16:32 Last Infusion: 08/08/22 19:11 Dose: 0 mls/hr Documented By: Admin: 08/08/22 17:15 Dose: 999 mls/hr Documented By: [facility] Sodium Chloride (Nss 1000ml) 1,000 mls @ 125 mls/hr IV .Q8H PEDRO Stop: 08/09/22 08:19 Last Infusion: 08/09/22 10:29 Dose: 0 mls/hr Documented By: Admin: 08/09/22 03:00 Dose: 125 mls/hr Documented By: Infusion: 08/09/22 03:00 Dose: 0 mls/hr Documented By: Admin: 08/08/22 19:03 Dose: 125 mls/hr Documented By: MICHELE Ioversol (Optiray 350 100ml) 84 ml IV ONCE ONE Stop: 08/08/22 11:11 Last Admin: 08/08/22 11:10 Dose: 84 ml Documented By: RAKEL Morphine Sulfate (Morphine Sulfate 4 Mg/Ml 1 Ml Carp\Vial) 4 mg IV NOW STA Stop: 08/08/22 08:27 Last Admin: 08/08/22 08:29 Dose: 4 mg Documented By: ADILENE Morphine Sulfate (Morphine Sulfate 4 Mg/Ml 1 Ml Carp\Vial) 4 mg IV NOW STA Stop: 08/08/22 10:08 Last Admin: 08/08/22 10:29 Dose: 4 mg Documented By: MILEY Morphine Sulfate (Morphine Sulfate 4 Mg/Ml 1 Ml Carp\Vial) 4 mg IV NOW STA Stop: 08/08/22 12:02 Last Admin: 08/08/22 13:10 Dose: 4 mg Documented By: GEE Morphine Sulfate (Morphine Sulfate 4 Mg/Ml 1 Ml Carp\Vial) 4 mg IV Q4H PRN PRN Reason: Pain Stop: 08/22/22 16:19 Last Admin: 08/09/22 06:20 Dose: 4 mg Documented By: Admin: 08/09/22 02:15 Dose: 4 mg Documented By: Admin: 08/08/22 21:59 Dose: 4 mg Documented By: Admin: 08/08/22 17:17 Dose: 4 mg Documented By: GEE Ondansetron HCl (Ondansetron Inj 2 Mg/Ml 2 Ml Vial) 4 mg IV NOW STA Stop: 08/08/22 08:10 Last Admin: 08/08/22 08:22 Dose: 4 mg Documented By: ADILENE PG Care Time/CCT Total # of Minutes Spent Total Time Spent with Patient: Total time spent is greater than 50% in coordination of care (as documented) at patient's floor/unit and/or counseling patient: Coding Level of Care Code 06586 SUB INP/OBS CARE MIN Diagnoses Perforation of sigmoid colon due to diverticulitis K57.20 Colitis K52.9 Acute hyponatremia E87.1 Diabetes mellitus, type 2 E11.9 Hyperlipidemia E78.5 Benign essential hypertension I10 Peripheral arterial disease I73.9
[2022-08-09] MEDS: LACTATED RINGER'S 1,000 ML IV SCH (16:19)
[2022-08-09] MEDS: MELATONIN 3 MG TAB PO PRN (19:53)
[2022-08-09 22:28] LABS: A calco-baum cmplx NotReported Not Detected (NotDetected); Bact fragilis Not Reported Not Detected (NotDetected); C auris Not Reported Not Detected (NotDetected); Calbicans Not Reported Not Detected (NotDetected); Candida glabrata Not Reported Not Detected (NotDetected); Candida krusei Not Reported Not Detected (NotDetected); Cneoformans/gatti Not Reported Not Detected (NotDetected); Cparapsilosis Not Reported Not Detected (NotDetected); Ctropicalis Not Reported Not Detected (NotDetected); E cloacae compx Not Reported Not Detected (NotDetected); Efaecalis Not Reported Not Detected (NotDetected); Efaecium Not Reported Not Detected (NotDetected); Enterobacterales Not Reported Not Detected (NotDetected); Escherichia coli Not Reported Not Detected (NotDetected); H influenzae Not Reported Not Detected (NotDetected); K aerogenes Not Reported Not Detected (NotDetected); Koxytoca Not Reported Not Detected (NotDetected); Kpneumoniae grp Not Reported Not Detected (NotDetected); Lmonocyt Not Reported Not Detected (NotDetected); N meningitidis Not Reported Not Detected (NotDetected); P aeruginosa Not Reported Not Detected (NotDetected); Proteus spp Not Reported Not Detected (NotDetected); Salmonella spp Not Reported Not Detected (NotDetected); Smarcescens Not Reported Not Detected (NotDetected); Staph lugdunensis Not Reported Not Detected (NotDetected); Staph spp. Not Reported DETECTED (NotDetected); Staphaureus Not Reported Not Detected (NotDetected); Staphepi Not Reported DETECTED (NotDetected); Staphylococcus spp. DETECTED (NotDetected); Stenmaltophilia Not Reported Not Detected (NotDetected); Strep agal(GrpB) Not Reported Not Detected (NotDetected); Strep pneum Not Reported Not Detected (NotDetected); Strep pyog (GrpA) Not Reported Not Detected (NotDetected); Strep spp Not Reported Not Detected (NotDetected); mecAC Resistant Gene Not Detected (NotDetected)
[2022-08-09 22:49] LABS: Staphylococcus epidermidis DETECTED (NotDetected)
[2022-08-10] MEDS: MoRPHine SULFATE 4 MG/ML 1 ML CARP\\VIAL IV PRN ×3 (00:19→12:43)
[2022-08-10] MEDS: PIPERACILLIN/TAZOBACTAM 3.375 GM in DEXTROSE 5% 100 ML IV SCH ×3 (03:40→18:27)
--- NOTE | 2022-08-10 05:54 | Electrocardiogram Report ---
Test Reason : Blood Pressure : / mmHG Vent. Rate : 127 BPM Atrial Rate : 127 BPM P-R Int : 126 ms QRS Dur : 078 ms QT Int : 294 ms P-R-T Axes : 037 021 061 degrees QTc Int : 427 ms Sinus tachycardia Cannot rule out Anterior infarct , age undetermined Abnormal ECG When compared with ECG of 09-NOV-2021 20:02, No significant change was found Confirmed by Og Sierra ([id number]) on 08/10/2022 5:53:57 AM Referred By: Confirmed By:Og Sierra
[2022-08-10] MEDS: ACETAMINOPHEN 1,000 MG/100 ML VIAL IV PRN (06:11)
[2022-08-10] MEDS: LACTATED RINGER'S 1,000 ML IV SCH ×3 (08:06→23:09)
--- NOTE | 2022-08-10 08:36 | Surgery Progress Note ---
Date of Service August 10, 2022 Assessment & Plan (1) Perforation of sigmoid colon due to diverticulitis: Plan: Patient is feeling about the same Has some episodes of sharp pains yesterday and into the evening Vitals are stable and he is afebrile. On exam abdomen is soft with similar ttp in the RLQ and right mid/lower abd He is beginning to pass flatus Blood work is pending and we will follow up on WBC Pending clinical status may consider clears later vs repeat at CT scan at some point to evaluate worsening developing abscess Admission and Anticipated Discharge Date Admission Date: August 08, 2022 Supervising Physician Co-Signing Physician Notes I personally saw and examined the patient with Samira Larkin PA-C and agree with the assessment and plan. 62-year-old male with acute diverticulitis with microperforation Vital signs stable He continues to have some pain, WBC slightly decreased Will continue n.p.o. and IV antibiotics at this time If he continues to have pain and has not made significant progress by tomorrow, we will repeat a CT abdomen pelvis to see if there is anything that could be drained percutaneously He still may require exploration and Buitrago's procedure if he worsens We will continue to follow Subjective Patient states he is feeling about the same. Pain is not worsening, but feels it more so when the pain meds wear off. He did experience a few bouts of sharp severe pain in the evening yesterday. Mild nausea, but unsure if related to hunger. He is starting to pass some flatus. No BM. Physical Exam Physical Exam: awake/alert, no distress Gastrointestinal (Abdomen): Inspection/Auscultation: + abdomen distended (mild) Percussion/Palpation: + abdomen tender (ttp in RLQ and right mid/lower abdomen) and abdomen soft Results & Data ([facility]) Vital Signs (Past 12 Hours) Vital Signs Temp Pulse Resp BP Pulse Ox O2 Del Method 08/10/22 07:56 37.1 C 71 16 125/71 93 Room Air 08/09/22 22:48 37.2 C 87 16 114/70 94 Room Air PG Care Time/CCT Total # of Minutes Spent Total Time Spent with Patient: Total time spent is greater than 50% in coordination of care (as documented) at patient's floor/unit and/or counseling patient: Coding Level of Care Code 59081 SUB INP/OBS CARE 08/16MIN Diagnoses Perforation of sigmoid colon due to diverticulitis K57.20
[2022-08-10 09:01] LABS: BUN Creatinine Ratio 13.4 (10-20); Calcium 8.8 mg/dl (8.5-10.1); Creatinine Clr Calc Pharmacy 105.6 ml/min; Est GFR (African American) 110.6 ml/min; Est GFR (Non-African American) 95.4 ml/min; Potassium 3.9 mmol/L (3.5-5.1)
[2022-08-10 09:42] LABS: Basophils # (auto) 0.06 K/uL (0-0.2); Basophils % (auto) 0.5 %; Eosinophils # (auto) 0.07 K/uL (0-0.50); Eosinophils % (auto) 0.6 %; Hematocrit (blood only) 33.2 % (40.1-51.0); Hemoglobin 11.5 g/dl (14.0-18.0); Immature Granulocytes # (auto) 0.05 K/uL (0.00-0.02); Immature Granulocytes % (auto) 0.4 %; Lymphocytes # (auto) 0.73 K/uL (1.2-3.4); Lymphocytes % (auto) 5.9 %; Mean Corpuscular Hemoglobin 32.2 pg (25.0-34.0); Mean Corpuscular Hgb Conc 34.6 g/dL (32.0-36.0); Mean Platelet Volume 10.4 fL (9.4-12.4); Monocytes % (auto) 5.7 %; Neutrophils # (auto) 10.76 K/uL (1.4-6.5); Neutrophils % (auto) 86.9 %; Platelet Count 146 K/uL (130-400); RDW Coefficient of Variation 12.3 % (11.5-14.5); RDW Standard Deviation 42.4 fL (36.4-46.3); Red Blood Count 3.57 M/uL (4.63-6.08); White Blood Count 12.37 K/ul (4.8-10.8)
[2022-08-10] MEDS: ENOXAPARIN INJ 40 MG/0.4 ML SYR SQ SCH (10:10)
[2022-08-10] MEDS ORDERED: MoRPHine SULFATE 4 MG/ML 1 ML CARP\\VIAL IV PRN (13:41)
[2022-08-10] MEDS: MoRPHine SULFATE 2 MG/ML CARP IV PRN ×2 (16:54→21:24)
[2022-08-10] MEDS: MELATONIN 3 MG TAB PO PRN (21:24)
--- NOTE | 2022-08-10 23:15 | Hospitalist Progress Note ---
Date of Service August 10, 2022 Assessment & Plan (1) Perforation of sigmoid colon due to diverticulitis: Plan: Symptomatically improved - Continue with NPO, IVF, Antibiotics- Zosyn - Blood cultures pending - Leukocytosis stable- afebrile overnight and improved Tachycardia - Re-image next 24-48 hours evaluate abscess Continue close monitoring and will follow surgical input regarding further intervention (2) Colitis: Plan: Previous colonoscopy in April 2019 showing mild left-sided colitis, biopsy with chronic colitis in sigmoid and rectum. Suspected inflammatory bowel disease due to ischemia versus segmental colitis associated diverticulosis Follow-up colonoscopy with gastroenterology in 4 to 6 weeks after resolution of diverticulitis Reports remaining with inconsistent bowel habits with constipation and diarrhea (3) Acute hyponatremia: Plan: Hyponatremia- acute Likely hypovolemic hyponatremic aggravated by HCTZ use- in the setting of decrease oral solute intake secondary to #1 - improved this morning to 131 - Continue Normal saline 1L bolus then at 125 mils per hour - Continue to hold HCTZ (4) Diabetes mellitus, type 2: Plan: Hemoglobin A1c 6.5 Consider insulin sliding scale once diet is reintroduced - AC/HS finger sticks- notify if >180mg/dl on 2 consecutive checks - hypoglycemia protocol while NPO as well (5) Hyperlipidemia: Plan: Hold atorvastatin while n.p.o. (6) Benign essential hypertension: Plan: Hold valsartan hydrochlorothiazide until hemodynamics proven and euvolemia - can initiate PRN IV anti-hypertensives IF required - Improved renal indices (7) Peripheral arterial disease: Plan: History of: Not acute S/p bilateral femoral-popliteal bypass graft with [place]-Atilio in 2013 S/p angioplasty of bilateral bypass grafts 2015x2 S/p multiple angioplasty, laser atherectomy, shockwave medical lithotripsy of bilateral lower extremities 2015, 2017, 2020 S/p bilateral EIA/COMPOSITE WORKER/DFA lithotripsy/angioplasty, bilateral DFA PRAKASH-angioplasty and L pop angioplasty 03/2022 Restart aspirin, clopidogrel, atorvastatin when able to restart his diet and surgery 08/10/22- re-image within next 48 hours to evaluate abscess- if improvement and non-surgical/IR resume ASA and Plavix Plan VTE prophylaxis - Lovenox 40mg SQ daily Diet - NPO Disposition - remain MedSur Admission and Anticipated Discharge Date Admission Date: August 08, 2022 Subjective Patient reports intermittent pain with mild nausea No fevers or chills Physical Exam Physical Exam: Head and ENT no thyroid enlargement trachea midline Cardiovascular S1-S2 are normal no S3 Lungs bilateral air entry fair no wheezing Abdomen soft abdomen slightly distended Extremity shows trace edema Neurologically no focal deficits Skin shows no rash no cyanosis Results & Data Results & Data ([facility]) Vital Signs (Past 12 Hours) Vital Signs Temp Pulse Resp BP Pulse Ox O2 Del Method 08/10/22 21:56 36.8 C 72 17 116/73 95 Room Air 08/10/22 15:34 37.7 C H 86 16 131/77 94 Room Air Laboratory Results Short CBC 08/10/22 Range/Units 08:17 WBC 12.37 H (4.8-10.8) K/ul Hgb 11.5 L (14.0-18.0) g/dl Hct 33.2 L (40.1-51.0) % Plt Count 146 (130-400) K/uL BMP 08/10/22 08:17 Sodium 133 L Potassium 3.9 Chloride 100 Carbon Dioxide 26 BUN 11 Creatinine 0.82 Glucose 87 Calcium 8.8 PG Care Time/CCT Total # of Minutes Spent Total Time Spent with Patient: Total time spent is greater than 50% in coordination of care (as documented) at patient's floor/unit and/or counseling patient: Coding Level of Care Code 67863 SUB INP/OBS CARE 2MIN Diagnoses Perforation of sigmoid colon due to diverticulitis K57.20 Colitis K52.9 Acute hyponatremia E87.1 Diabetes mellitus, type 2 E11.9 Hyperlipidemia E78.5 Benign essential hypertension I10 Peripheral arterial disease I73.9
[2022-08-11] MEDS: PIPERACILLIN/TAZOBACTAM 3.375 GM in DEXTROSE 5% 100 ML IV SCH ×3 (02:08→18:14)
[2022-08-11] MEDS: MoRPHine SULFATE 2 MG/ML CARP IV PRN ×3 (02:13→19:20)
[2022-08-11] MEDS: ACETAMINOPHEN 1,000 MG/100 ML VIAL IV PRN (06:17)
[2022-08-11 07:59] LABS: Basophils # (auto) 0.04 K/uL (0-0.2); Basophils % (auto) 0.4 %; Eosinophils # (auto) 0.11 K/uL (0-0.50); Eosinophils % (auto) 1.1 %; Hematocrit (blood only) 31.8 % (40.1-51.0); Hemoglobin 11.1 g/dl (14.0-18.0); Immature Granulocytes # (auto) 0.08 K/uL (0.00-0.02); Immature Granulocytes % (auto) 0.8 %; Lymphocytes # (auto) 0.91 K/uL (1.2-3.4); Lymphocytes % (auto) 9.1 %; Mean Corpuscular Hgb Conc 34.9 g/dL (32.0-36.0); Mean Corpuscular Volume 91.6 fL (80.0-100.0); Mean Platelet Volume 10.3 fL (9.4-12.4); Monocytes # (auto) 0.87 K/uL (0.24-0.82); Monocytes % (auto) 8.7 %; Neutrophils % (auto) 79.9 %; Platelet Count 148 K/uL (130-400); RDW Coefficient of Variation 12.2 % (11.5-14.5); RDW Standard Deviation 40.8 fL (36.4-46.3); Red Blood Count 3.47 M/uL (4.63-6.08); White Blood Count 10.01 K/ul (4.8-10.8)
[2022-08-11] MEDS: ENOXAPARIN INJ 40 MG/0.4 ML SYR SQ SCH (09:25)
[2022-08-11] MEDS: LACTATED RINGER'S 1,000 ML IV SCH ×2 (09:33→21:40)
[2022-08-11 10:12] LABS: Albumin Globulin Ratio 1.1 (0.9-2); Albumin Level 3.4 gm/dl (3.4-5.0); BUN Creatinine Ratio 14.6 (10-20); Bilirubin,Total 1.4 mg/dl (0.2-1.0); Calcium 9.1 mg/dl (8.5-10.1); Creatinine Clr Calc Pharmacy 105.6 ml/min; Est GFR (African American) 110.6 ml/min; Est GFR (Non-African American) 95.4 ml/min; Globulin 3.2 gm/dl (2.5-4.0); Potassium 3.3 mmol/L (3.5-5.1); Total Protein 6.6 gm/dl (6.0-8.3)
--- NOTE | 2022-08-11 10:50 | Surgery Progress Note ---
Date of Service August 11, 2022 Assessment & Plan (1) Perforation of sigmoid colon due to diverticulitis: Plan: Patient feeling much better. Pain improved. Passing flatus WBC 10, Vitals stable. Afebrile Abdomen soft, improving discomfort to palpation in the RLQ Will start clear liquid diet for today Pending improvement may consider further diet advancement tomorrow as tolerates Continue IV abx while in house, transition to po upon discharge to complete course Admission and Anticipated Discharge Date Admission Date: August 08, 2022 Supervising Physician Co-Signing Physician Notes I personally saw and examined the patient with Samira Larkin PA-C and agree with the assessment and plan. 62-year-old male with acute diverticulitis with microperforation Vital signs stable He feels better today with less pain and less tenderness on abdominal exam Will trial clear liquids and continue IV antibiotics for today Will follow Subjective Patient reports feeling much better. No nausea/vomiting. Passing flatus, no BM yet. Pain is still present, but much improved. Had some chills overnight, that self resolved. Physical Exam Physical Exam: awake/alert, no distress Respiratory: normal respiratory effort Gastrointestinal (Abdomen): Percussion/Palpation: + abdomen tender (improving ttp in the RLQ) and abdomen soft Results & Data ([facility]) Vital Signs (Past 12 Hours) Vital Signs Temp Pulse Resp BP Pulse Ox O2 Del Method 08/11/22 07:29 36.8 C 74 18 138/74 95 Room Air PG Care Time/CCT Total # of Minutes Spent Total Time Spent with Patient: Total time spent is greater than 50% in coordination of care (as documented) at patient's floor/unit and/or counseling patient: Coding Level of Care Code 56448 SUB INP/OBS CARE 25MIN Diagnoses Perforation of sigmoid colon due to diverticulitis K57.20
[2022-08-11] MEDS ORDERED: Nursing to Pharmacy Communication SCH (12:45)
[2022-08-11] MEDS: MELATONIN 3 MG TAB PO PRN (20:59)
--- NOTE | 2022-08-11 23:07 | Hospitalist Progress Note ---
Date of Service August 11, 2022 Assessment & Plan (1) Perforation of sigmoid colon due to diverticulitis: Plan: Symptomatically improved - Continue with NPO, IVF, Antibiotics- Zosyn - Blood cultures pending - Leukocytosis stable- afebrile overnight and improved Tachycardia - Re-image next 24-48 hours evaluate abscess Continue close monitoring and will follow surgical input regarding further intervention (2) Colitis: Plan: Previous colonoscopy in April 2019 showing mild left-sided colitis, biopsy with chronic colitis in sigmoid and rectum. Suspected inflammatory bowel disease due to ischemia versus segmental colitis associated diverticulosis Follow-up colonoscopy with gastroenterology in 4 to 6 weeks after resolution of diverticulitis Reports remaining with inconsistent bowel habits with constipation and diarrhea (3) Acute hyponatremia: Plan: Hyponatremia- acute Likely hypovolemic hyponatremic aggravated by HCTZ use- in the setting of decrease oral solute intake secondary to #1 - improved this morning to 131 - Continue Normal saline 1L bolus then at 125 mils per hour - Continue to hold HCTZ (4) Diabetes mellitus, type 2: Plan: Hemoglobin A1c 6.5 Consider insulin sliding scale once diet is reintroduced - AC/HS finger sticks- notify if >180mg/dl on 2 consecutive checks - hypoglycemia protocol while NPO as well (5) Hyperlipidemia: Plan: Hold atorvastatin while n.p.o. (6) Benign essential hypertension: Plan: Hold valsartan hydrochlorothiazide until hemodynamics proven and euvolemia - can initiate PRN IV anti-hypertensives IF required - Improved renal indices (7) Peripheral arterial disease: Plan: History of: Not acute S/p bilateral femoral-popliteal bypass graft with [place]-Atilio in 2013 S/p angioplasty of bilateral bypass grafts 2015x2 S/p multiple angioplasty, laser atherectomy, shockwave medical lithotripsy of bilateral lower extremities 2015, 2017, 2020 S/p bilateral EIA/MARKETING DEVELOPER/DFA lithotripsy/angioplasty, bilateral DFA PRAKASH-angioplasty and L pop angioplasty 03/2022 Restart aspirin, clopidogrel, atorvastatin when able to restart his diet and surgery 08/10/22- re-image within next 48 hours to evaluate abscess- if improvement and non-surgical/IR resume ASA and Plavix Plan VTE prophylaxis - Lovenox 40mg SQ daily Diet - NPO Disposition - remain [facility] Admission and Anticipated Discharge Date Admission Date: August 08, 2022 Subjective Patient reports feeling overall improved with no nausea vomiting . . Pain much improved Physical Exam Physical Exam: Head and ENT no thyroid enlargement trachea midline Cardiovascular S1-S2 are normal no S3 Lungs bilateral air entry fair no wheezing Abdomen soft nondistended positive bowel sounds no rebound tenderness Extremity shows trace edema Neurologically no focal deficits Skin shows no rash no cyanosis Results & Data Results & Data ([facility]) Vital Signs (Past 12 Hours) Vital Signs Temp Pulse Resp BP Pulse Ox O2 Del Method 08/11/22 16:00 37.1 C 70 18 116/72 97 Room Air PG Care Time/CCT Total # of Minutes Spent Total Time Spent with Patient: Total time spent is greater than 50% in coordination of care (as documented) at patient's floor/unit and/or counseling patient: Coding Level of Care Code 90122 SUB INP/OBS CARE 2MIN Diagnoses Perforation of sigmoid colon due to diverticulitis K57.20 Colitis K52.9 Acute hyponatremia E87.1 Diabetes mellitus, type 2 E11.9 Hyperlipidemia E78.5 Benign essential hypertension I10 Peripheral arterial disease I73.9
[2022-08-12] MEDS: PIPERACILLIN/TAZOBACTAM 3.375 GM in DEXTROSE 5% 100 ML IV SCH ×3 (01:36→17:59)
[2022-08-12] MEDS: MoRPHine SULFATE 2 MG/ML CARP IV PRN ×3 (01:39→20:36)
[2022-08-12] MEDS: SODIUM CHLORIDE 0.9% 1000ML 1,000 ML IV SCH ×3 (02:45→21:54)
[2022-08-12 06:46] LABS: Albumin Level 3.1 gm/dl (3.4-5.0); BUN Creatinine Ratio 10.8 (10-20); Bilirubin,Total 0.9 mg/dl (0.2-1.0); Calcium 8.4 mg/dl (8.5-10.1); Est GFR (African American) 115.4 ml/min; Est GFR (Non-African American) 99.6 ml/min; Potassium 3.3 mmol/L (3.5-5.1); Total Protein 6.1 gm/dl (6.0-8.3)
[2022-08-12] MEDS: ENOXAPARIN INJ 40 MG/0.4 ML SYR SQ SCH (09:52)
--- NOTE | 2022-08-12 13:28 | Surgery Progress Note ---
Date of Service August 12, 2022 Assessment & Plan (1) Perforation of sigmoid colon due to diverticulitis: Plan: 62-year-old male with diverticulitis with small phlegmon, improving with IV antibiotics. Advance to low fiber diet as tolerated Continue IV antibiotics today Potential discharge later today or tomorrow Continue on oral antibiotics for total of 10-day course Follow-up with GI for colonoscopy, scheduled for a few weeks and for now, will need to discuss with them whether they want to delay for a few more weeks (2) Diabetes mellitus, type 2: (3) Benign essential hypertension: (4) Hyperlipidemia: Admission and Anticipated Discharge Date Admission Date: August 08, 2022 Subjective 62-year-old male admitted with diverticulitis with small phlegmon, responding to IV antibiotics. Tolerated clear liquids yesterday had some bowel movements today. Feels some discomfort with walking and bowel movements. Overall much better than upon admission Physical Exam Constitutional: WD/WN, vitals as above Gastrointestinal (Abdomen): Percussion/Palpation: + abdomen tender (Minimally tender in lower midline and right lower quadrant) and abdomen soft; no guarding and abdomen not rigid Results & Data ([facility]) Vital Signs (Past 12 Hours) Vital Signs Temp Pulse Resp BP Pulse Ox O2 Del Method 08/12/22 12:03 36.9 C 77 16 140/86 95 Room Air 08/12/22 07:58 36.4 C L 75 18 138/82 97 Room Air PG Care Time/CCT Total # of Minutes Spent Total Time Spent with Patient: Total time spent is greater than 50% in coordination of care (as documented) at patient's floor/unit and/or counseling patient: Coding Level of Care Code 33591 SUB INP/OBS CARE 08/16MIN Diagnoses Perforation of sigmoid colon due to diverticulitis K57.20 Diabetes mellitus, type 2 E11.9 Benign essential hypertension I10 Hyperlipidemia E78.5
--- NOTE | 2022-08-12 23:12 | Hospitalist Progress Note ---
Date of Service August 12, 2022 Assessment & Plan (1) Perforation of sigmoid colon due to diverticulitis: Plan: Symptomatically improved - Continue with NPO, IVF, Antibiotics- Zosyn - Blood cultures pending - Leukocytosis stable- afebrile overnight and improved Tachycardia - 08/12--followed by surgery improving with IV antibiotics. Patient continues to improve over the next 24 hours plan to DC on Sunday or Sunday Plan to continue on oral antibiotics for total of 10-day course Present on Admission?: Yes (2) Colitis: Plan: Previous colonoscopy in April 2019 showing mild left-sided colitis, biopsy with chronic colitis in sigmoid and rectum. Suspected inflammatory bowel disease due to ischemia versus segmental colitis associated diverticulosis Follow-up colonoscopy with gastroenterology in 4 to 6 weeks after resolution of diverticulitis Reports remaining with inconsistent bowel habits with constipation and diarrhea (3) Acute hyponatremia: Plan: Hyponatremia- acute Likely hypovolemic hyponatremic aggravated by HCTZ use- in the setting of decrease oral solute intake secondary to #1 - improved this morning to 131 - Continue Normal saline 1L bolus then at 125 mils per hour - Continue to hold HCTZ (4) Diabetes mellitus, type 2: Plan: Hemoglobin A1c 6.5 Consider insulin sliding scale once diet is reintroduced - AC/HS finger sticks- notify if >180mg/dl on 2 consecutive checks - hypoglycemia protocol while NPO as well (5) Hyperlipidemia: Plan: Hold atorvastatin while n.p.o. (6) Benign essential hypertension: Plan: Hold valsartan hydrochlorothiazide until hemodynamics proven and euvolemia - can initiate PRN IV anti-hypertensives IF required - Improved renal indices (7) Peripheral arterial disease: Plan: History of: Not acute S/p bilateral femoral-popliteal bypass graft with [place]-Atilio in 2013 S/p angioplasty of bilateral bypass grafts 2015x2 S/p multiple angioplasty, laser atherectomy, shockwave medical lithotripsy of bilateral lower extremities 2015, 2017, 2020 S/p bilateral EIA/LINE BUILDER/DFA lithotripsy/angioplasty, bilateral DFA PRAKASH-angioplasty and L pop angioplasty 03/2022 Restart aspirin, clopidogrel, atorvastatin when able to restart his diet and surgery 08/10/22- re-image within next 48 hours to evaluate abscess- if improvement and non-surgical/IR resume ASA and Plavix Plan VTE prophylaxis - Lovenox 40mg SQ daily Diet - NPO Disposition - remain [facility] Admission and Anticipated Discharge Date Admission Date: August 08, 2022 Subjective Patient admitted with diverticulitis with small phlegmon, responding to IV antibiotics. Patient able to tolerate clear liquids and is being slowly advanced Patient had a bowel movement today as well and feels improved Physical Exam Physical Exam: Head and ENT no thyroid enlargement trachea midline Cardiovascular S1-S2 are normal no S3 Lungs bilateral air entry fair no wheezing Abdomen soft abdomen slightly distended no rebound tenderness Extremity shows trace edema Neurologically no focal deficits Skin shows no rash no cyanosis Results & Data Results & Data ([facility]) Vital Signs (Past 12 Hours) Vital Signs Temp Pulse Pulse Pulse Resp BP Pulse Ox 08/12/22 20:22 37.4 C 84 18 159/76 H 96 08/12/22 15:21 37.2 C 82 17 155/81 H 97 08/12/22 12:03 36.9 C 77 16 140/86 95 O2 Del Method 08/12/22 20:22 Room Air 08/12/22 15:21 Room Air 08/12/22 12:03 Room Air Laboratory Results [facility] 08/12/22 05:21 Sodium 136 Potassium 3.3 L Chloride 102 Carbon Dioxide 27 BUN 8 Creatinine 0.74 Glucose 106 H Calcium 8.4 L Liver Function 08/12/22 Range/Units 05:21 Total Bilirubin 0.9 D (0.2-1.0) mg/dl AST 17 (13-39) U/L ALT 15 (7-52) U/L Alkaline Phosphatase 55 (34-104) U/L Albumin 3.1 L (3.4-5.0) gm/dl PG Care Time/CCT Total # of Minutes Spent Total Time Spent with Patient: Total time spent is greater than 50% in coordination of care (as documented) at patient's floor/unit and/or counseling patient: Coding Level of Care Code 04845 SUB INP/OBS CARE MIN Diagnoses Perforation of sigmoid colon due to diverticulitis K57.20 Colitis K52.9 Acute hyponatremia E87.1 Diabetes mellitus, type 2 E11.9 Hyperlipidemia E78.5 Benign essential hypertension I10 Peripheral arterial disease I73.9
[2022-08-13] MEDS: MELATONIN 3 MG TAB PO PRN (00:01)
[2022-08-13] MEDS: MoRPHine SULFATE 2 MG/ML CARP IV PRN ×5 (00:29→18:17)
[2022-08-13] MEDS: PIPERACILLIN/TAZOBACTAM 3.375 GM in DEXTROSE 5% 100 ML IV SCH ×3 (01:45→18:11)
[2022-08-13 06:15] LABS: Albumin Level 3.2 gm/dl (3.4-5.0); BUN Creatinine Ratio 6.8 (10-20); C Reactive Protein 8.03 mg/dl (0-0.5); Calcium 8.8 mg/dl (8.5-10.1); Est GFR (African American) 115.4 ml/min; Est GFR (Non-African American) 99.6 ml/min; Globulin 3.1 gm/dl (2.5-4.0); Potassium 3.3 mmol/L (3.5-5.1); Total Protein 6.3 gm/dl (6.0-8.3); Uric Acid 2.5 mg/dl (2.6-7.2)
[2022-08-13] MEDS ORDERED: COLCHICINE 0.6 MG TAB PO ONE (06:15)
[2022-08-13] MEDS: SODIUM CHLORIDE 0.9% 1000ML 1,000 ML IV SCH ×2 (07:51→18:44)
--- NOTE | 2022-08-13 09:49 | Surgery Progress Note ---
Date of Service August 13, 2022 Assessment & Plan (1) Perforation of sigmoid colon due to diverticulitis: Plan: 62-year-old male with diverticulitis with small phlegmon, improving with IV antibiotics. Continue low fiber diet, will discharge with 4 to 6 weeks of low fiber Continue IV antibiotics today Potential discharge later today or tomorrow Continue on oral antibiotics for total of 10-day course Follow-up with GI for colonoscopy, scheduled for a few weeks and for now, will need to discuss with them whether they want to delay for a few more weeks Surgery will follow peripherally, call with questions or concerns (2) Diabetes mellitus, type 2: (3) Benign essential hypertension: (4) Hyperlipidemia: Admission and Anticipated Discharge Date Admission Date: August 08, 2022 Subjective Diverticulitis with phlegmon/abscess, responding to nonoperative management. Abdomen feels better, tolerated low fiber diet this morning. Passing gas, small BMs. Complaining of bilateral ankle pain he believes is secondary to gout. Physical Exam Constitutional: WD/WN, vitals as above Gastrointestinal (Abdomen): Percussion/Palpation: + abdomen tender (Minimally tender in lower midline and right lower quadrant) and abdomen soft; no guarding and abdomen not rigid Results & Data ([facility]) Vital Signs (Past 12 Hours) Vital Signs Temp Pulse Resp BP Pulse Ox O2 Del Method 08/13/22 07:35 36.6 C 77 14 140/84 95 Room Air Laboratory Results Laboratory Results - last 24 hr 08/12/22 08/12/22 08/12/22 11:45 17:25 20:09 ESR Sodium Potassium Chloride Carbon Dioxide Anion Gap BUN Creatinine Est Cr Clr Drug Dosing Est GFR ( Amer) Est GFR (Non-Af Amer) BUN/Creatinine Ratio Glucose POC Glucose 172 H 110 H 119 H Uric Acid Calcium Total Bilirubin AST ALT Alkaline Phosphatase C-Reactive Protein Total Protein Albumin Globulin Albumin/Globulin Ratio 08/13/22 08/13/22 08/13/22 05:14 05:15 08:26 ESR 89 H Sodium 136 Potassium 3.3 L Chloride 103 Carbon Dioxide 26 Anion Gap 7 BUN 5 L Creatinine 0.74 Est Cr Clr Drug Dosing 117.0 Est GFR ( Amer) 115.4 Est GFR (Non-Af Amer) 99.6 BUN/Creatinine Ratio 6.8 L Glucose 115 H POC Glucose 137 H Uric Acid 2.5 L Calcium 8.8 Total Bilirubin 1.0 AST 23 ALT 19 Alkaline Phosphatase 63 C-Reactive Protein 8.03 H Total Protein 6.3 Albumin 3.2 L Globulin 3.1 Albumin/Globulin Ratio 1.0 PG Care Time/CCT Total # of Minutes Spent Total Time Spent with Patient: Total time spent is greater than 50% in coordination of care (as documented) at patient's floor/unit and/or counseling patient: Coding Level of Care Code 93963 SUB INP/OBS CARE 08/16MIN Diagnoses Perforation of sigmoid colon due to diverticulitis K57.20 Diabetes mellitus, type 2 E11.9 Benign essential hypertension I10 Hyperlipidemia E78.5
[2022-08-13] MEDS: ENOXAPARIN INJ 40 MG/0.4 ML SYR SQ SCH (09:58)
[2022-08-13] MEDS ORDERED: ACETAMINOPHEN 1,000 MG/100 ML VIAL IV STA (19:27)
[2022-08-13] MEDS: COLCHICINE 0.6 MG TAB PO SCH (19:39)
--- NOTE | 2022-08-13 19:49 | Hospitalist Progress Note ---
Date of Service August 13, 2022 Assessment & Plan (1) Perforation of sigmoid colon due to diverticulitis: Plan: Symptomatically improved - Continue with NPO, IVF, Antibiotics- Zosyn - Blood cultures pending - Leukocytosis stable- afebrile overnight and improved Tachycardia - 08/12--followed by surgery improving with IV antibiotics. Patient continues to improve over the next 24 hours plan to DC on Sunday or Sunday Plan to continue on oral antibiotics for total of 10-day course 08/13-patient with perforated colon secondary to diverticulitis with abscess Managed nonoperatively and patient improving with IV antibiotics Followed by surgery and patient able to tolerate diet and having bowel movement Patient has gouty exacerbation bilateral ankle area Will use IV Tylenol in conjunction with low-dose steroids and colchicine as patient reports severe pain Continue IV PPI therapy with Protonix (2) Gout: Plan: Patient reports severe bilateral ankle gout exacerbation IV analgesics with Tylenol IV Solu-Medrol and colchicine with close monitoring Continue IV PPI for GI protection Check serum uric acid level (3) Colitis: Plan: Previous colonoscopy in April 2019 showing mild left-sided colitis, biopsy with chronic colitis in sigmoid and rectum. Suspected inflammatory bowel disease due to ischemia versus segmental colitis associated diverticulosis Follow-up colonoscopy with gastroenterology in 4 to 6 weeks after resolution of diverticulitis Reports remaining with inconsistent bowel habits with constipation and diarrhea IV PPI therapy with Protonix (4) Acute hyponatremia: Plan: Hyponatremia- acute Likely hypovolemic hyponatremic aggravated by HCTZ use- in the setting of decrease oral solute intake secondary to #1 - improved this morning to 131 - Continue Normal saline 1L bolus then at 125 mils per hour - Continue to hold HCTZ (5) Diabetes mellitus, type 2: Plan: Hemoglobin A1c 6.5 Consider insulin sliding scale once diet is reintroduced - AC/HS finger sticks- notify if >180mg/dl on 2 consecutive checks - hypoglycemia protocol while NPO as well (6) Hyperlipidemia: Plan: Hold atorvastatin while n.p.o. (7) Benign essential hypertension: Plan: Hold valsartan hydrochlorothiazide until hemodynamics proven and euvolemia - can initiate PRN IV anti-hypertensives IF required - Improved renal indices (8) Peripheral arterial disease: Plan: History of: Not acute S/p bilateral femoral-popliteal bypass graft with [place]-Atilio in 2013 S/p angioplasty of bilateral bypass grafts 2015x2 S/p multiple angioplasty, laser atherectomy, shockwave medical lithotripsy of bilateral lower extremities 2015, 2017, 2020 S/p bilateral EIA/THREAD MILLING MACHINE SET UP OPERATOR/DFA lithotripsy/angioplasty, bilateral DFA PRAKASH-angioplasty and L pop angioplasty 03/2022 Restart aspirin, clopidogrel, atorvastatin when able to restart his diet and surgery 08/10/22- re-image within next 48 hours to evaluate abscess- if improvement and non-surgical/IR resume ASA and Plavix Plan VTE prophylaxis - Lovenox 40mg SQ daily Diet - NPO Disposition - remain [facility] Admission and Anticipated Discharge Date Admission Date: August 08, 2022 Subjective Patient reports progressive improvement in his abdominal discomfort Patient able to tolerate low fiber diet and is passing gas but small bowel movements. No chest pain or shortness of breath Patient had developed bilateral ankle pain which is severe enough to prevent ambulation Physical Exam Physical Exam: Head and ENT no thyroid enlargement trachea midline Cardiovascular S1-S2 are normal no S3 Lungs bilateral air entry fair no wheezing Abdomen soft abdomen slightly distended no rebound tenderness improving Extremity shows trace edema Patient likely has gouty exacerbation bilateral ankle Neurologically no focal deficits Skin shows warmth inankle areas likely secondary to gouty exacerbations Results & Data Results & Data ([facility]) Vital Signs (Past 12 Hours) Vital Signs Temp Pulse Pulse Resp BP Pulse Ox O2 Del Method 08/13/22 15:12 37.4 C 08/13/22 14:44 38.1 C H 82 17 162/89 H 96 Room Air 08/13/22 11:59 37.5 C 88 16 146/78 H 94 Room Air Laboratory Results [facility] 08/13/22 05:14 Sodium 136 Potassium 3.3 L Chloride 103 Carbon Dioxide 26 BUN 5 L Creatinine 0.74 Glucose 115 H Calcium 8.8 Liver Function 08/13/22 Range/Units 05:14 Total Bilirubin 1.0 (0.2-1.0) mg/dl AST 23 (13-39) U/L ALT 19 (7-52) U/L Alkaline Phosphatase 63 (34-104) U/L Albumin 3.2 L (3.4-5.0) gm/dl PG Care Time/CCT Total # of Minutes Spent Total Time Spent with Patient: Total time spent is greater than 50% in coordination of care (as documented) at patient's floor/unit and/or counseling patient: Coding Level of Care Code 12338 SUB INP/OBS CARE MIN Diagnoses Perforation of sigmoid colon due to diverticulitis K57.20 Gout M10.9 Colitis K52.9 Acute hyponatremia E87.1 Diabetes mellitus, type 2 E11.9 Hyperlipidemia E78.5 Benign essential hypertension I10 Peripheral arterial disease I73.9
[2022-08-13] MEDS: PANTOprazole 40 MG in SYRINGE 0 ML IV SCH (20:43)
[2022-08-13] MEDS: methylPREDNISolone 30 MG in SYRINGE 0 ML IV SCH (20:43)
[2022-08-14] MEDS: PIPERACILLIN/TAZOBACTAM 3.375 GM in DEXTROSE 5% 100 ML IV SCH ×3 (01:26→17:47)
[2022-08-14] MEDS: MoRPHine SULFATE 2 MG/ML CARP IV PRN ×4 (04:04→23:48)
[2022-08-14] MEDS: SODIUM CHLORIDE 0.9% 1000ML 1,000 ML IV SCH (04:05)
[2022-08-14 06:29] LABS: Albumin Globulin Ratio 0.9 (0.9-2); Albumin Level 3.2 gm/dl (3.4-5.0); BUN Creatinine Ratio 9.2 (10-20); Bilirubin,Total 0.8 mg/dl (0.2-1.0); Calcium 8.9 mg/dl (8.5-10.1); Creatinine Clr Calc Pharmacy 133.2 ml/min; Est GFR (African American) 121.7 ml/min; Globulin 3.4 gm/dl (2.5-4.0); Potassium 3.6 mmol/L (3.5-5.1); Total Protein 6.6 gm/dl (6.0-8.3); Uric Acid 2.2 mg/dl (2.6-7.2)
[2022-08-14] MEDS: methylPREDNISolone 30 MG in SYRINGE 0 ML IV SCH (08:32)
[2022-08-14] MEDS: PANTOprazole 40 MG in SYRINGE 0 ML IV SCH ×2 (08:32→21:41)
[2022-08-14] MEDS: COLCHICINE 0.6 MG TAB PO SCH (08:32)
[2022-08-14] MEDS: ENOXAPARIN INJ 40 MG/0.4 ML SYR SQ SCH (08:33)
[2022-08-14] MEDS ORDERED: ACETAMINOPHEN 1,000 MG/100 ML VIAL IV PRN (11:44)
--- NOTE | 2022-08-14 11:49 | Hospitalist Progress Note ---
Date of Service August 14, 2022 Assessment & Plan (1) Perforation of sigmoid colon due to diverticulitis: Plan: Symptomatically improved - Kept NPO, IVF, and started on empiric Antibiotics- Zosyn - Blood cultures 1/4 tubes positive for coagulase neg staph, not lugdunensis (suspect contaminant) - Leukocytosis stable- afebrile overnight and improved Tachycardia - General surgery consulted, appreciate input - Diet advanced, tolerating low fiber - Passing gas, pain improved - Transition to Augmentin to start 1/24 AM (will require total of 10 days) (2) Gout: Plan: Patient reports severe bilateral ankle and foot swelling and pain - unusual for gout to present bilaterally - Treated w/ IV Tylenol, IV Solu-Medrol and colchicine - Continue IV PPI for GI protection - Uric acid level WNL at 2.2 - Consult PT - Pain and swelling improved but states that he "cannot stand/walk" (3) Colitis: Plan: Previous colonoscopy in April 2019 showing mild left-sided colitis, biopsy with chronic colitis in sigmoid and rectum. - Suspected inflammatory bowel disease due to ischemia versus segmental colitis associated diverticulosis - Follow-up colonoscopy with gastroenterology in 4 to 6 weeks after resolution of diverticulitis - Reports remaining with inconsistent bowel habits with constipation and diarrhea - IV PPI therapy with Protonix (4) Acute hyponatremia: Plan: Hyponatremia- acute - Likely hypovolemic hyponatremic aggravated by HCTZ use- in the setting of d ecrease oral solute intake secondary to #1 - improved this morning to 136 - Stop IVF - Continue to hold HCTZ (5) Diabetes mellitus, type 2: Plan: Hemoglobin A1c 6.5 - AC/HS finger sticks- notify if >180mg/dl on 2 consecutive checks (6) Hyperlipidemia: Plan: - Can resume Atorvastatin (7) Benign essential hypertension: Plan: - Valsartan/HCTZ was held on admission - Now hypertensive, renal fxn good, resume Valsartan 80mg daily (will continue to hold HCTZ d/t hyponatremia) (8) Peripheral arterial disease: Plan: History of: Not acute S/p bilateral femoral-popliteal bypass graft with [place]-Atilio in 2013 S/p angioplasty of bilateral bypass grafts 2015x2 S/p multiple angioplasty, laser atherectomy, shockwave medical lithotripsy of bilateral lower extremities 2015, 2017, 2020 S/p bilateral EIA/DIRECTOR OF HOUSING AND ENERGY SERVICES/DFA lithotripsy/angioplasty, bilateral DFA PRAKASH-angioplasty and L pop angioplasty 03/2022 - Restart aspirin, clopidogrel, atorvastatin 08/10/22- re-image within next 48 hours to evaluate abscess- if improvement and non-surgical/IR resume ASA and Plavix Plan PT eval and treat. Add IV APAP prn pain. Continue Colchicine. Treated with 2 doses of low dose IV Solumedrol. Anticipate d/c tomorrow. Plan d/w Dr. Bryant. Admission and Anticipated Discharge Date Admission Date: August 08, 2022 Subjective Patient seen on daily rounds this morning. He is resting in bed, reports that his bilateral ankle and foot pain and swelling is better but still cannot tolerate standing or walking. He reports a h/o of gout flare years ago. Doesn't take any medication for gout prevention. His abd pain is improved, tolerating low fiber diet. No n/v. Passing gas and has had liquid BMs but not formed BM. Review of Systems Review of Systems: All systems reviewed and are unremarkable except as noted in HPI and below. Denies fever, chills, fatigue, headache, nasal congestion, sore throat, cough, chest pain, shortness of breath, palpitations, orthopnea, PND, n/v/d, cons tipation, dysuria, hematuria, frequency, back pain, easy bruising or bleeding, skin lesions or rashes. Physical Exam Physical Exam: GENERAL: 62 yo Well-developed, well-nourished WM. NAD. LUNGS: Clear to auscultation bilaterally. No W/R/R. CARDIOVASCULAR: Regular rate and rhythm. ABDOMEN: Soft, non-distended, mild ttp in RLQ. BS normoactive x 4 quad. EXTREMITIES: Trace nonpitting edema of b/l feet and ankles. Mild TTP of R hallux. Peripheral pulses +2/4. NEUROLOGIC: A&O x3. PSYCHIATRIC: Cooperative. Appropriate mood and affect. SKIN: Warm, dry, intact. No rashes or lesions. Results & Data Results & Data ([facility]) Vital Signs (Past 12 Hours) Vital Signs Temp Pulse Resp BP Pulse Ox O2 Del Method 08/14/22 07:29 36.7 C 70 18 173/75 H 96 Room Air Laboratory Results 08/11/22 06:59 08/14/22 05:26 uric acid=2.2 PG Care Time/CCT Total # of Minutes Spent Total Time Spent with Patient: Total time spent is greater than 50% in coordination of care (as documented) at patient's floor/unit and/or counseling patient: Coding Level of Care Code 79840 SUB INP/OBS CARE 3/50MIN Diagnoses Perforation of sigmoid colon due to diverticulitis K57.20 Gout M10.9 Colitis K52.9 Acute hyponatremia E87.1 Diabetes mellitus, type 2 E11.9 Hyperlipidemia E78.5 Benign essential hypertension I10 Peripheral arterial disease I73.9
[2022-08-14] MEDS: VALSARTAN 80 MG TAB PO SCH (13:37)
[2022-08-14] MEDS ORDERED: ATORVASTATIN 40 MG TAB PO SCH (21:00)
[2022-08-15] MEDS: PIPERACILLIN/TAZOBACTAM 3.375 GM in DEXTROSE 5% 100 ML IV SCH (01:53)
[2022-08-15] MEDS ORDERED: oxyCODONE HCL IR 5 MG TAB (IMMEDIATE RELEASE) PO PRN (08:49)
[2022-08-15] MEDS ORDERED: ACETAMINOPHEN 325 MG TAB PO PRN (08:58)
[2022-08-15] MEDS ORDERED: CLOPIDOGREL BISULFATE 75 MG TAB PO SCH (09:00)
[2022-08-15] MEDS ORDERED: AMOXICILLIN/CLAVULANATE 875 MG TAB PO SCH (09:00)
[2022-08-15] MEDS ORDERED: ASPIRIN 81 MG ECTAB PO SCH (09:00)
[2022-08-15] MEDS: VALSARTAN 80 MG TAB PO SCH (09:02)
[2022-08-15] MEDS: PANTOprazole 40 MG in SYRINGE 0 ML IV SCH (09:03)
[2022-08-15] MEDS: ENOXAPARIN INJ 40 MG/0.4 ML SYR SQ SCH (09:03)
--- NOTE | 2022-08-15 12:43 | Discharge Summary ---
Date of Service August 15, 2022 Admission HPI Per Admitting Provider John King is a 62-year-old male who presents to the ER with right-sided abdominal pain radiating to his testicle. He reports a similar episode 2 to 4 weeks ago with abdominal sharp pain in the right lower quadrant which was severe for 2 days but progressively improved over another few days. No fever or chills. No change in bowel habits. Current episode started on Sunday night (2 days ago), worse on lying down, severity 8/10 currently, 10/10 at worst. Suprapubic and right lower quadrant pain radiating to his right testicle. No fevers or chills. No diarrhea or constipation. No nausea or vomiting. Colonoscopy in April 2019 showed mild left-sided colitis with biopsy showing chronic colitis in sigmoid and rectum. Diagnosed with likely inflammatory bowel disease due to ischemia vs. segmental colitis associated with diverticulosis. He was started on mesalamine November reportedly could not tolerate this. The ER CT abdomen pelvis with IV contrast showed no acute sigmoid diverticulitis with microperforation. Principal Diagnosis 1. Diverticulitis with perforation 2. Swelling of bilateral ankles/feet Discharge Exam GENERAL: 62 yo Well-developed, well-nourished WM. NAD. LUNGS: Clear to auscultation bilaterally. No W/R/R. CARDIOVASCULAR: Regular rate and rhythm. ABDOMEN: Soft, non-distended, nontender. BS normoactive x 4 quad. EXTREMITIES: Trace nonpitting edema of b/l feet and ankles. Mild TTP of R hallux. Peripheral pulses +2/4. NEUROLOGIC: A&O x3. PSYCHIATRIC: Cooperative. Appropriate mood and affect. SKIN: Warm, dry, intact. No rashes or lesions. Discharge Data Allergies Allergy/AdvReac Type Severity Reaction Status Date / Time lisinopril AdvReac Severe COUGH Verified 08/08/22 15:22 Consultations 08/08/22 12:37 ED Decision to Admit Stat 08/08/22 12:42 Consult General Surgery Stat Ordered Studies Abdomen/Pelvis CT 08/08/22 08:[address] WITH IV CONTRAST CT DOSE: 797.06 mGy.cm HISTORY: Acute right lower quadrant abdominal pain RLQ abdominal pain TECHNIQUE: Multiaxial CT images of the abdomen and pelvis were performed following the IV administration of 84 cc of Optiray, A dose lowering technique was utilized adhering to the principles of ALARA. COMPARISON STUDY: Scrotal ultrasound of same day, CT abdomen and pelvis 10/14/2013 FINDINGS: Coronary artery calcifications. Clear lung bases. Unremarkable spleen, pancreas, gallbladder and adrenal glands. Marginal nodularity of the liver kim ggestive of cirrhosis. No hepatic mass identified. Patency of the hepatic and portal veins. Unremarkable kidneys without hydronephrosis. Prostamegaly. Bladder wall thickening with partial distention. Small fat filled inguinal hernias. Extensive atherosclerosis of the abdominal aorta and proximal branch vessels with suggestion of high-grade stenosis involving the bilateral common femoral arteries. Patent imaged superficial femoral arterial stents. No lymphadenopathy identified. No bowel obstruction. Acute sigmoid diverticulitis with 2.3 cm fluid collection extending from the wall of the sigmoid into the adjacent mesocolon, image 352 series 3 without well-defined allen. There are a few foci of extraluminal air within the adjacent mesocolon. Normal appendix. Unremarkable soft tissues. Mod erate L5-S1 intervertebral disc space narrowing. No acute fracture identified. IMPRESSION: 1. Acute sigmoid diverticulitis with microperforation. There is a 2.3 cm fluid collection extending from the wall of the sigmoid into the adjacent mesocolon without well-defined allen, suspicious for a developing abscess. No drainable fluid collection identified. 2. No bowel obstruction. 3. Prostamegaly with urinary bladder wall thickening suggestive of chronic bladder outlet obstruction. Correlate with urinalysis. 4. Additional findings as above. ACT 112: Negative or not required by law. The above report was generated using voice recognition software. It may contain grammatical, syntax or spelling errors. Electronically signed by: Pernell King M.D. 08/08/2022 11:33 AM Scrotum Ultrasound 08/08/22 08:26 US scrotum/testicle CLINICAL HISTORY: 62 years-old Male with Testicular pain and RLQ pain. Acute right-sided scrotal pain COMPARISON STUDY: CT abdomen and pelvis 10/14/2013 TECHNIQUE: Real-time, grayscale, and color Doppler sonography of the testes and scrotum is performed. Images are reviewed in the transverse and longitudinal planes. FINDINGS: RIGHT HEMISCROTUM: The right testis measures 4.1 x 2.9 x 1.9 cm and the parenchyma appears unremarkable. No intratesticular mass is seen. Normal- appearing arterial inflow is present within the right testicle. The right epididymal head appears normal. No varicocele or hydrocele is identified. LEFT HEMISCROTUM: The left testis measures 4.4 x 2.4 x 1.9 cm and the parenchyma appears unremarkable. No intratesticular mass is seen. Normal-appearing arterial inflow is present within the left testicle. The left epididymal head appears normal. No varicocele or hydrocele is identified. Incidental note is made of small reducible fat filled inguinal hernias. IMPRESSION: 1. Normal sonographic appearance of the testicles. No testicular torsion or mass. 2. Small reducible fat filled inguinal hernias. ACT 112: Negative or not required by law. The above report was generated using voice recognition software. It may contain grammatical, syntax or spelling errors. Electronically signed by: Pernell King M.D. 08/08/2022 10:22 AM Hospital Course (1) Perforation of sigmoid colon due to diverticulitis: Symptomatically improved - Kept NPO, IVF, and started on empiric Antibiotics- Zosyn - Blood cultures 07/26 tubes positive for coagulase neg staph, not lugdunensis (suspect contaminant) - Leukocytosis stable- afebrile overnight and improved Tachycardia - General surgery consulted, appreciate input - Diet advanced, tolerating low fiber - Passing gas, pain improved - Transitioned to Augmentin started 08/15, needs 3 more days after today, rx sent to pharmacy (2) Gout: Patient reports severe bilateral ankle and foot swelling and pain - unusual for gout to present bilaterally - Treated w/ IV Tylenol, IV Solu-Medrol and colchicine - Continue IV PPI for GI protection - Uric acid level WNL at 2.2 - Consulted PT but they have not seen him - Pain and swelling improved and has been able to ambulate to and from bathroom - Will send home on a short course of Prednisone 40mg daily x 5 days and OxyIR 5mg (total of 10 tablets) (3) Colitis: Previous colonoscopy in April 2019 showing mild left-sided colitis, biopsy with chronic colitis in sigmoid and rectum. - Suspected inflammatory bowel disease due to ischemia versus segmental colitis associated diverticulosis - Follow-up colonoscopy with gastroenterology in 4 to 6 weeks after resolution of diverticulitis - Reports remaining with inconsistent bowel habits with constipation and diarrhea - IV PPI therapy with Protonix (4) Acute hyponatremia: Hyponatremia- acute - Likely hypovolemic hyponatremic aggravated by HCTZ use- in the setting of decrease oral solute intake secondary to #1 - improved this morning to 136 - Stopped IVF on 08/14 (5) Diabetes mellitus, type 2: Hemoglobin A1c 6.5 - AC/HS finger sticks- notified that he had two blood sugar readings >180 on 08/14 - Given his a1c of 6.5 and some elevated BG readings, would start him on Metformin 500mg BID, will defer to PCP (6) Hyperlipidemia: - Can resume Atorvastatin (7) Benign essential hypertension: - Valsartan/HCTZ was held on admission - Now hypertensive, renal fxn good, resume Valsartan 80mg daily (will continue to hold HCTZ d/t hyponatremia on admit) - Can resume his Valsartan/HCTZ upon dc (8) Peripheral arterial disease: History of: Not acute S/p bilateral femoral-popliteal bypass graft with Ohlman-Atilio in 2013 S/p angioplasty of bilateral bypass grafts 2014x2 S/p multiple angioplasty, laser atherectomy, shockwave medical lithotripsy of bilateral lower extremities 2015, 2017, 2020 S/p bilateral EIA/PHOTOTYPESETTER OPERATOR/DFA lithotripsy/angioplasty, bilateral DFA PRAKASH-angioplasty and L pop angioplasty 03/2022 - Restarted aspirin, clopidogrel, atorvastatin Plan Patient is medically and hemodynamically stable for discharge home today. Advised patient to follow up with PCP on Friday 08/18, otherwise no later than Monday 08/21. Follow up with general surgery in 2-4 weeks and GI as scheduled. Plan has been d/w Dr. Bryant who is in agreement with aforementioned. Total Time Total Time Spent Total Time Spent (In Minutes): >30 minutes Discharge Plan Discharge Items Patient Disposition: Home - Self-Care Reason For Visit: diverticulitis with an abscess Discharge Diagnosis: diverticulitis pain/swelling in ankles Condition on Discharge: Good Activity: Resume your previous activity Non-emergency contact: Primary Care Provider, Surgeon and Instrument Man Call non-emergency contact if: you have any medication questions Follow-up/Referrals: Vasiliy Moreno III, CRNP [Primary Care Provider] - 08/29/22 9:20 am Xiang Mckay DO [Physician] - 09/01/22 9:00 am (2-4 weeks) Diet: Carb Consistent or DM2 Addtl Attending Provider Instructions: You were hospitalized due to diverticulitis which is when small pouches in your colon get inflamed and infected. This will cause abdominal pain as well as fevers, nausea, and/or vomiting. You were treated with pain medications and antibiotics. You were also seen by general surgery who felt that you did not need surgery but could be managed with a course of antibiotics. You are being discharged home on Augmentin 875-125mg, which you will take one tablet twice a day (morning and evening). Be sure to take this medication with food or milk. It can cause nausea and/or diarrhea. You were also noted to have swelling and pain in your ankles and feet. It is not clear what the cause of this is. You were treated with steroids as well as other medications to treat gout (Colchicine) which is an anti-inflammatory. It is very unusual for gout to present in the same joints/areas on both sides. Subsequently, I recommend that you follow up with you family doctor. You may need to have further work up for this issue and may need to be referred to a specialist. You are being discharged home on a short course of steroids as well as pain medication (Oxycodone). Please take these medications as directed. Be sure to take the steroids with food or a snack. It is recommended that you follow up with you family doctor as early as Sunday or Sunday at the latest. Would also discuss with him starting on Metformin for diabetes as you did have some elevated blood sugar readings in the hospital gre ater than 180. Follow up with your analytical lead as scheduled. If you have any questions or concerns following your discharge, call the nonemergency number listed on your discharge paperwork. In the event of a medical emergency, call 911. Pending Studies at Discharge: No Stand-Alone Forms: My [employer], Smoking Cessation Medications and DC Order Prescriptions: New oxycodone 5 mg Tablet 5 mg PO Q6H PRN (Reason: severe pain (scale score 7-10)) Qty: 10 0RF prednisone 20 mg tablet 40 mg PO DAILY 5 Days Qty: 10 0RF Rx Instructions: take with food amoxicillin-pot clavulanate 875-125 mg tablet 1 tab PO BID Qty: 7 0RF Rx Instructions: take with food Continued atorvastatin 40 mg tablet 40 mg PO HS Qty: 90 3RF clopidogrel 75 mg tablet See Rx Instructions .ROUTE .COMPLEX Qty: 30 5RF Dose Instruction: TAKE 1 TABLET BY MOUTH EVERY MORNING Rx Instructions: TAKE 1 TABLET BY MOUTH EVERY MORNING valsartan-hydrochlorothiazide 80-12.5 mg tablet 1 tab PO BID Qty: 180 3RF aspirin 81 mg Tablet,Delayed Release (Dr/Ec) 81 mg PO DAILY Discharge Orders: Discharge Order (Routine); Ordered 08/15/22 Ordered By: Mona Walker Admission Data Admit Date/Time: 08/08/22 12:56 Attending Provider: Saul Bryant Admit Provider: Ian Quintanilla Primary Care Provider: Vasiliy Moreno III Other Providers: Ian Quintanilla ; Xiang Mckay Coding Level of Care Code HOSP INP/OBS DISCH >30 MIN Diagnoses Perforation of sigmoid colon due to diverticulitis K57.20 Gout M10.9 Colitis K52.9 Acute hyponatremia E87.1 Diabetes mellitus, type 2 E11.9 Hyperlipidemia E78.5 Benign essential hypertension I10 Peripheral arterial disease I73.9
[2022-08-15] MEDS ORDERED: PANTOprazole 40 MG TAB PO SCH (21:00)
== END 2022-08-15 14:52 | disposition home or self-care (01) | DRG 392 ==
LOC: ED 07:46 → SUATTDRO 12:56 → EDINP 12:56 → 3N 16:20 → 3E 08-12 01:12 → 1E 08-12 07:04 → 3E 08-12 07:11
DX: N50.819 Testicular pain, unspecified; I10 Essential (primary) hypertension; Z87.891 Personal history of nicotine dependence; Z79.82 Long term (current) use of aspirin; E87.1 Hypo-osmolality and hyponatremia; M25.471 Effusion, right ankle; K52.9 Noninfective gastroenteritis and colitis, unspecified; I73.9 Peripheral vascular disease, unspecified; E78.5 Hyperlipidemia, unspecified; M10.9 Gout, unspecified; M25.472 Effusion, left ankle; Z88.1 Allergy status to other antibiotic agents; K57.20 Diverticulitis of large intestine with perforation and abscess without bleeding; E11.51 Type 2 diabetes mellitus with diabetic peripheral angiopathy without gangrene; T50.2X5A Adverse effect of carbonic-anhydrase inhibitors, benzothiadiazides and other diuretics, initial encounter; K22.70 Barrett's esophagus without dysplasia; Z79.2 Long term (current) use of antibiotics

== ENCOUNTER 2022-10-08 13:46 | Inpatient (IN) ==
--- NOTE | 2022-10-08 13:55 | Emergency Department Note ---
ED Provider Note History of Present Illness Chief Complaint: Vomiting Stated Complaint: VOMITING Time Seen by Provider: 10/08/22 13:54 This is a 62-year-old male with a complex medical history including peripheral vascular disease, hypertension, type 2 diabetes, chronic hepatitis C infection, cryoglobulinemia, recent diverticulitis with abscess requiring IR drainage at [facility], accompanied by his , who presents with 2 days of upper abdominal discomfort, nausea, and vomiting. His symptoms initially began 2 days ago with multiple episodes of vomiting, and then seemed to improve to some extent yesterday, and then he developed dry heaves again today. He has pain across his upper abdomen with associated nausea that seems to be exacerbated by taking a deep breath. He feels like his diaphragm is irritated. This causes him to dry heave again. He believes he throughout his morning medications this morning. He does admit that one of his coworkers who he was exposed to was out for several days with vomiting. Regarding his diverticulitis, he finished all of his antibiotics and denies any significant lower abdominal pain compared to what he has been experiencing with the diverticulitis. This feels different. He states the pain in his upper abdomen radiates into his chest and it feels like a burning sensation which he attributes to all of the dry heaving and vomiting that he has been doing over the past 2 days. He has not been able to keep fluids down. Has not noticed any hematemesis. Has not had any diarrhea. No recent fevers. Denies any dysuria or hematuria. The pain goes into his chest and when he is dry heaving he feels short of breath. States he is scheduled to have part of his colon removed in November with [facility]. Drinks beer relatively frequently, but was admitted and did not require any intervention, no history of alcohol withdrawal Home Medications Medication Instructions Recorded Confirmed Type aspirin 81 mg tablet,delayed 81 mg PO DAILY 11/09/21 10/08/22 History release atorvastatin 40 mg tablet 40 mg PO HS #90 tabs 11/28/21 10/08/22 Rx valsartan 80 1 tab PO BID #180 tabs 06/27/22 10/08/22 Rx mg-hydrochlorothiazide 12.5 mg tablet acetaminophen 325 mg tablet 325 - 650 mg PO Q6H PRN Pain 08/28/22 10/08/22 History tamsulosin 0.4 mg capsule 0.4 mg PO DAILY #90 caps 09/25/22 10/08/22 Rx clopidogrel 75 mg tablet 75 mg PO QAM 10/08/22 10/08/22 History Allergies Allergy/AdvReac Type Severity Reaction Status Date / Time lisinopril AdvReac Severe COUGH Verified 10/08/22 17:17 Past Med/Surg History Medical History (Updated 10/10/22 @ 07:32 by Ian Johnson) Adenomatous colon polyp Alcohol abuse, unspecified Barretts esophagus Benign essential hypertension Chronic hepatitis C without mention of hepatic coma Diabetes mellitus, type 2 TAKES NO MEDS/ DIET/ EXERCISE History of irregular heartbeat HX- HAD EKG AT [facility] THIS YEAR- SEES DR AT [facility]- PER THAT DOCTOR, NO ISSUES OR PROBLEMS Hyperlipidemia Neoplasm of soft tissues of head PAD (peripheral artery disease) Right leg pain S/P angiogram of extremity Tobacco use disorder Tubular adenoma of colon Surgical History Cyst REMOVED FROM BACK OF HEAD History of carpal tunnel release BILAT History of colonoscopy History of esophagogastroduodenoscopy (EGD) History of open reduction and internal fixation (ORIF) procedure RT LEG (HARDWARE INTACT) History of right cataract surgery Hx of vascular surgery BILAT UPPER ARTERIAL "POP" 5 YRS AGO- AT [facility]- FOLLOWS WITH [facility] (NO STENTS) Nausea and vomiting after administration of anesthetic agent Family History Mother Family history of diabetes mellitus Myocardial infarction Diabetes Stroke Father Myocardial infarction Cancer Brother Stroke Other Hypertension Denies family history of Ovarian cancer Prostate cancer Breast cancer Colorectal cancer Social History Smoking Status: Former smoker Tobacco Type: Cigarettes Age Started Using Tobacco: 17; Age Quit Using Tobacco: 49; packs per day: 1; Second Hand Exposure: Yes; Do You Dip or Chew Tobacco: No; Hx Alcohol Use: Yes Alcohol type: beer Hx Substance Use: No Preferred Language: Tamazight Communication Ability: Effective Visual Impairment: No Limitations Hearing Ability: Normal Field Tax Auditor Required: No Beliefs That Will Affect Care: None marital status: Current Living Situation: Spouse current occupational status: employed current occupation: [employer] Other Information That Helps Us Care for You: No Feels Safe at Home: Yes Safety Concerns: Feels Safe At This Time Childhood Exposure to Second-Hand Smoke: Yes Diet Comment: regular Dental Care, Regularly: Yes Physical Activity Frequency: 5-6 Times per Week Seatbelt Use: always Sunscreen Use: Yes Assistive Devices: None Physical Exam Vital Signs Vital Signs - 24 hr 10/08/22 13:49 10/08/22 15:45 10/08/22 15:45 Temperature 97.9 F Temperature Source Temporal Artery Scan Pulse Rate 112 H 94 H Pulse Rate [Right Finger] 94 H Pulse Rhythm [Right Finger] Pulse Strength [Right Finger] Respiratory Rate 20 18 18 Respiratory Effort / Characteristics Non-Labored Non-Labored Spontaneous Respiratory Depth Normal Respiratory Pattern Blood Pressure 185/102 H Blood Pressure [Right Arm] 188/106 H Blood Pressure Mean 129 Blood Pressure Mean [Right Arm] 133 Blood Pressure Position [Right Arm] Pulse Oximetry 96 92 92 Oxygen Delivery Method Room Air Room Air Room Air Sepsis Recent Fever Within 48 Hours No Sepsis New/Unexplained Change in Mental Status N/A Sepsis Action Taken by Nursing No Action Required 10/08/22 16:39 10/08/22 16:42 10/08/22 18:00 Temperature Temperature Source Pulse Rate 88 Pulse Rate [Right Finger] 90 82 Pulse Rhythm [Right Finger] Regular Regular Pulse Strength [Right Finger] Normal Normal Respiratory Rate 16 16 Respiratory Effort / Characteristics Non-Labored Spontaneous Non-Labored Spontaneous Respiratory Depth Normal Normal Respiratory Pattern Regular Blood Pressure Blood Pressure [Right Arm] 135/90 145/87 H Blood Pressure Mean Blood Pressure Mean [Right Arm] 105 106 Blood Pressure Position [Right Arm] Semi-fowlers Pulse Oximetry 94 95 Oxygen Delivery Method Room Air Room Air Sepsis Recent Fever Within 48 Hours Sepsis New/Unexplained Change in Mental Status Sepsis Action Taken by Nursing CONSTITUTIONAL: Well developed, well nourished, mildly uncomfortable, dry heaves with deep inspiration HEAD: Normocephalic, atraumatic. EYES: conjunctivae normal, extraocular muscles intact. ENMT: External ears normal. Nose with normal external appearance, no conge stion. Oral mucous membranes dry. Oropharynx otherwise normal. NECK: Full active range of motion. RESPIRATORY: Breathing unlabored and symmetric. Lungs clear to auscultation bilaterally. No wheeze, rales, or rhonchi. CARDIOVASCULAR: Tachycardic rate and regular rhythm. No murmurs, rubs, or gallop s. ABDOMEN: Normal bowel sounds. There is no peritonitis. Abdomen is soft with focal tenderness over the epigastrium, mildly diffusely tender. Prior incision site over the suprapubic region appears to be healing well with no surrounding erythema. No significant tenderness in the right lower abdomen MUSCULOSKELETAL: Moves all extremities at all joints without pain or difficulty. No cyanosis or edema. Back with full range of motion. SKIN: Flora, warm, dry. NEUROLOGIC: Awake, alert, oriented. Gaze is conjugate. Face symmetric, speech normal. Moves head and all four extremities spontaneously. Sensation and strength grossly intact. [Ambulates into room] PSYCHIATRIC: Appropriate. Normal affect Course Administered Medications Acetaminophen (Acetaminophen 325 Mg Tab) 650 mg PO Q4H PRN PRN Reason: Pain or Fever Stop: 11/07/22 23:51 Last Admin: 10/10/22 10:53 Dose: 650 mg Documented By: HARMAN Co-signed By: PHIL Hydralazine HCl (Hydralazine Hcl 20 Mg/Ml Vial) 10 mg IV Q4H PRN PRN Reason: Blood Pressure - High Stop: 11/08/22 01:54 Last Admin: 10/10/22 07:59 Dose: 10 mg Documented By: HARMAN Co-signed By: PHIL Potassium Chloride/Sodium Chloride (Normal Saline W/20 Meq Kcl) 20 meq in 1,000 mls @ 80 mls/hr IV .[id number] [facility] Stop: 11/07/22 23:51 Last Admin: 10/10/22 02:20 Dose: 80 mls/hr Documented By: Infusion: 10/10/22 02:20 Dose: 80 mls/hr Documented By: Admin: 10/09/22 13:52 Dose: 80 mls/hr Documented By: Infusion: 10/09/22 12:58 Dose: 80 mls/hr Documented By: Admin: 10/09/22 00:28 Dose: 80 mls/hr Documented By: JAXON Pantoprazole Sodium 40 mg/ (Syringe) 10 mls @ 5 mls/min IV DAILY@1100 [facility] Stop: 11/08/22 10:59 Last Admin: 10/10/22 10:52 Dose: 5 mls/min Documented By: HARMAN Co-signed By: PHIL Admin: 10/09/22 10:18 Dose: 5 mls/min Documented By: MARSHA Co-signed By: PHIL Piperacillin Sod/Tazobactam (Sod 4.5 gm/ Dextrose) 120 mls @ 30 mls/hr IV Q8H PEDRO; Protocol Stop: 10/19/22 00:00 Last Admin: 10/10/22 07:58 Dose: 30 mls/hr Documented By: HARMAN Co-signed By: PHIL Infusion: 10/10/22 04:32 Dose: 0 mls/hr Documented By: Admin: 10/10/22 00:24 Dose: 30 mls/hr Documented By: Infusion: 10/09/22 20:06 Dose: 0 mls/hr Documented By: Admin: 10/09/22 15:50 Dose: 30 mls/hr Documented By: Infusion: 10/09/22 13:34 Dose: 0 mls/hr Documented By: Admin: 10/09/22 08:28 Dose: 30 mls/hr Documented By: MARSHA Co-signed By: PHIL Infusion: 10/09/22 04:22 Dose: 0 mls/hr Documented By: Admin: 10/09/22 00:31 Dose: 30 mls/hr Documented By: JAXON Ketorolac Tromethamine (Ketorolac 30 Mg/Ml Vial) 30 mg IV Q6H PRN PRN Reason: Pain in feet Stop: 10/15/22 00:59 Last Admin: 10/10/22 07:59 Dose: 30 mg Documented By: HARMAN Co-signed By: PHIL Admin: 10/10/22 01:33 Dose: 30 mg Documented By: ORI Tamsulosin HCl (Tamsulosin Hcl 0.4 Mg Cap) 0.4 mg PO DAILY [facility] Stop: 11/08/22 08:59 Last Admin: 10/10/22 07:58 Dose: 0.4 mg Documented By: HARMAN Co-signed By: PHIL Admin: 10/09/22 08:29 Dose: 0.4 mg Documented By: MARSHA Co-signed By: PHIL Discontinued Medications Al Hydrox/Mg Hydrox/Simethicone (Gi Cocktail Ed Use) 1 dose PO ONE ONE Stop: 10/08/22 14:15 Last Admin: 10/08/22 14:40 Dose: 1 dose Documented By: MEHREEN Pantoprazole Sodium 40 mg/ (Syringe) 10 mls @ 5 mls/min IV NOW ONE Stop: 10/08/22 14:15 Last Admin: 10/08/22 15:27 Dose: 5 mls/min Documented By: SOWMYA Sodium Chloride (Nss 1000ml) 1,000 mls @ 999 mls/hr IV .Q1H1M ONE Stop: 10/08/22 15:18 Last Infusion: 10/08/22 20:02 Dose: 0 mls/hr Documented By: Admin: 10/08/22 15:28 Dose: 999 mls/hr Documented By: SOWMYA Sodium Chloride (Nss) 500 mls @ 999 mls/hr IV .Q31M ONE Stop: 10/08/22 16:24 Last Infusion: 10/08/22 20:02 Dose: 0 mls/hr Documented By: Admin: 10/08/22 17:14 Dose: 999 mls/hr Documented By: SOWMYA Piperacillin Sod/Tazobactam Sod (Zosyn) 4.5 gm in 120 mls @ 240 mls/hr IV NOW ONE Stop: 10/08/22 19:38 Last Infusion: 10/08/22 23:16 Dose: 0 mls/hr Documented By: Admin: 10/08/22 19:55 Dose: 240 mls/hr Documented By: SOWMYA Ioversol (Optiray 320 500ml) 117 ml IV ONCE ONE Stop: 10/08/22 16:24 Last Admin: 10/08/22 16:24 Dose: 117 ml Documented By: ERIN Ketorolac Tromethamine (Ketorolac 30 Mg/Ml Vial) 30 mg IV NOW ONE Stop: 10/09/22 18:57 Last Admin: 10/09/22 19:34 Dose: 30 mg Documented By: ORI Morphine Sulfate (Morphine Sulfate 4 Mg/Ml 1 Ml Carp\\Vial) 4 mg IV NOW STA Stop: 10/08/22 14:15 Last Admin: 10/08/22 14:41 Dose: 4 mg Documented By: MEHREEN Morphine Sulfate (Morphine Sulfate 4 Mg/Ml 1 Ml Carp\\Vial) 4 mg IV NOW STA Stop: 10/08/22 21:50 Last Admin: 10/08/22 22:09 Dose: 4 mg Documented By: SOWMYA Ondansetron HCl (Ondansetron Inj 2 Mg/Ml 2 Ml Vial) 4 mg IV NOW STA Stop: 10/08/22 14:15 Last Admin: 10/08/22 14:41 Dose: 4 mg Documented By: MEHREEN Medical Decision Making Differential Diagnosis Postoperative complication, gastroenteritis, esophagitis, diaphragmatic injury, ACS, pulmonary embolism, pancreatitis, cholecystitis, renal colic, aortic/vascular pathology, among other pathology Medical Records Attestation: I reviewed the patient's medical records. (Reviewed prior [facility] surgery notes from most recent admissions) Laboratory Data 10/08/22 14:25 10/08/22 14:25 Lab Results 10/08/22 10/08/22 10/08/22 Range/Units 14:25 14:25 15:38 WBC 9.05 (4.8-10.8) K/ul RBC 4.77 (4.70-6.10) M/uL Hgb 15.0 (14.0-18.0) g/dl Hct 42.4 (42.0-52.0) % MCV 88.9 (80.0-100.0) fL MCH 31.4 (25.0-34.0) pg MCHC 35.4 (32.0-36.0) g/dL RDW Std Deviation 44.7 (36.4-46.3) fL RDW Coeff of Silas 13.8 (11.5-14.5) % Plt Count 269 (130-400) K/uL MPV 9.5 (9.4-12.4) fL Immature Gran % (Auto) 0.3 % Neut % (Auto) 81.4 % Lymph % (Auto) 12.4 % Dukes % (Auto) 5.5 % Eos % (Auto) 0.1 % Baso % (Auto) 0.3 % Neut # (Auto) 7.36 H (1.40-6.50) K/uL Lymph # (Auto) 1.12 L (1.2-3.4) K/uL Dukes # (Auto) 0.50 (0.11-0.59) K/uL Eos # (Auto) 0.01 (0-0.50) K/uL Baso # (Auto) 0.03 (0-0.2) K/uL Immature Gran # (Auto) 0.03 (0.01-0.20) K/uL Sodium 132 L (136-145) mmol/L Potassium 3.8 (3.5-5.1) mmol/L Chloride 92 L (98-107) mmol/L Carbon Dioxide 31 (21-32) mmol/L Anion Gap 9 (3-11) BUN 10 (6-23) mg/dl Creatinine 0.82 (0.6-1.4) mg/dl Est Cr Clr Drug Dosing 103.4 ml/min Est GFR ( Amer) 110.6 ml/min Est GFR (Non-Af Amer) 95.4 ml/min BUN/Creatinine Ratio 12.2 (10-20) Glucose 140 H (70-99(Fasting)) mg/dl Calcium 11.0 H (8.5-10.1) mg/dl Magnesium 1.8 (1.7-2.4) mg/dl Total Bilirubin 0.8 (0.2-1.0) mg/dl AST 29 (13-39) U/L ALT 25 (7-52) U/L Alkaline Phosphatase 87 (34-104) U/L Troponin I High Sens 9.9 (0-20) pg/ml Total Protein 8.9 H (6.0-8.3) gm/dl Albumin 4.6 (3.4-5.0) gm/dl Globulin 4.3 H (2.5-4.0) gm/dl Albumin/Globulin Ratio 1.1 (0.9-2) Lipase 26 (11-82) U/L Urine Color Urine Appearance (Clear) Urine pH (4.5-7.5) Ur Specific Cisco (1.000-1.030) Urine Protein (Negative) Urine Glucose (UA) (Negative) Urine Ketones (Negative) Urine Blood (Negative) Urine Nitrite (Negative) Urine Bilirubin (Negative) Urine Urobilinogen (Negative) Ur Leukocyte Esterase (Negative) Urine WBC (Auto) (0-5) /hpf Urine RBC (Auto) (0-4) /hpf U Hyaline Cast (Auto) (0-5) /lpf U Epithel Cells (Auto) (0-5) /lpf Urine Bacteria (Auto) (Negative) SARS-CoV-2, RNA, NAAT NEGATIVE (NEGATIVE) 10/08/22 Range/Units 17:42 WBC (4.8-10.8) K/ul RBC (4.70-6.10) M/uL Hgb (14.0-18.0) g/dl Hct (42.0-52.0) % MCV (80.0-100.0) fL MCH (25.0-34.0) pg MCHC (32.0-36.0) g/dL RDW Std Deviation (36.4-46.3) fL RDW Coeff of Silas (11.5-14.5) % Plt Count (130-400) K/uL MPV (9.4-12.4) fL Immature Gran % (Auto) % Neut % (Auto) % Lymph % (Auto) % Dukes % (Auto) % Eos % (Auto) % Baso % (Auto) % Neut # (Auto) (1.40-6.50) K/uL Lymph # (Auto) (1.2-3.4) K/uL Dukes # (Auto) (0.11-0.59) K/uL Eos # (Auto) (0-0.50) K/uL Baso # (Auto) (0-0.2) K/uL Immature Gran # (Auto) (0.01-0.20) K/uL Sodium (136-145) mmol/L Potassium (3.5-5.1) mmol/L Chloride (98-107) mmol/L Carbon Dioxide (21-32) mmol/L Anion Gap (3-11) BUN (6-23) mg/dl Creatinine (0.6-1.4) mg/dl Est Cr Clr Drug Dosing ml/min Est GFR ( Amer) ml/min Est GFR (Non-Af Amer) ml/min BUN/Creatinine Ratio (10-20) Glucose (70-99(Fasting)) mg/dl Calcium (8.5-10.1) mg/dl Magnesium (1.7-2.4) mg/dl Total Bilirubin (0.2-1.0) mg/dl AST (13-39) U/L ALT (7-52) U/L Alkaline Phosphatase (34-104) U/L Troponin I High Sens (0-20) pg/ml Total Protein (6.0-8.3) gm/dl Albumin (3.4-5.0) gm/dl Globulin (2.5-4.0) gm/dl Albumin/Globulin Ratio (0.9-2) Lipase (11-82) U/L Urine Color Yellow Urine Appearance Clear (Clear) Urine pH 7.5 (4.5-7.5) Ur Specific Cisco 1.028 (1.000-1.030) Urine Protein Negative (Negative) Urine Glucose (UA) Negative (Negative) Urine Ketones Negative (Negative) Urine Blood Negative (Negative) Urine Nitrite Negative (Negative) Urine Bilirubin Negative (Negative) Urine Urobilinogen Negative (Negative) Ur Leukocyte Esterase 2+ H (Negative) Urine WBC (Auto) 10-30 H (0-5) /hpf Urine RBC (Auto) 0-4 (0-4) /hpf U Hyaline Cast (Auto) 0 (0-5) /lpf U Epithel Cells (Auto) 5-10 H (0-5) /lpf Urine Bacteria (Auto) 4+ H (Negative) SARS-CoV-2, RNA, NAAT (NEGATIVE) Imaging Data Radiologist's Impression: Chest X-Ray 10/08/22 14:14 XR chest 1V portable HISTORY: epigastric pain/vomiting COMPARISON: Chest 11/09/2021. FINDINGS: The lungs are clear. Cardiac silhouette is normal in size. No pleural effusions. No pneumothorax. IMPRESSION: No acute process. ACT 112: Negative or not required by law. Electronically signed by: Thomas Underwood M.D. 10/08/2022 2:34 PM Abdomen/Pelvis CT 10/08/22 15:[address] WITH IV CONTRAST CT DOSE: HISTORY: recent divertic surgery, epigastric pain pleuritic TECHNIQUE: Multiaxial CT images of the abdomen and pelvis were performed follo wing the use of intravenous contrast. A dose lowering technique was utilized adhering to the principles of ALARA. COMPARISON STUDY: Abdomen and pelvis CT 08/22/2022. FINDINGS: The lung bases are better appreciated on the same day chest CT. No pneumoperitoneum. No pneumatosis. No acute fractures identified. Small fat- containing right inguinal hernia, unchanged. Nodular contour to the liver consistent with mild cirrhosis. The main portal vein is patent. The gallbladder, pancreas, spleen, and adrenal glands are unremarkable. The kidneys enhance normally. No hydronephrosis. Calcified plaque within the normal caliber abdominal aorta. No retroperitoneal or pelvic lymphadenopathy. No pelvic free fluid. Thickening within the bladder at the dome and anteriorly. There is a 1.5 cm fistula located between the right anterior bladder dome and adjacent sigmoid colon. There is a persistent thick-walled 3.6 cm peripheral enhancing gas and fluid collection abutting the right anterior bladder consistent with a small residual abscess. This has improved in the interval when it measured 6.5 cm. This smaller residual abscess also appears to connect to the colovesical fistula. Multiple colonic diverticula. Mild residual thickening of the sigmoid colon. This suggests resolving diverticulitis. No new areas of acute diverticulitis identified. No dilated loops of bowel to suggest an obstruction. Normal appendix. IMPRESSION: 1. Decrease in size in the now 3.6 cm residual abscess abutting the right a nterior bladder. 2. There is a 1.5 cm colovesical fistula involving the sigmoid colon. This also appears to connect to the small residual abscess. 3. Mild cirrhosis. 4. Mild residual thickening of the sigmoid colon suggests resolving diverticulitis. No new areas of acute diverticulitis identified. 5. Additional findings as described above. ACT 112: Negative or not required by law. Electronically signed by: Thomas Underwood M.D. 10/08/2022 6:34 PM Chest CTA 10/08/22 15:33 CHEST CTA for PULMONARY ARTERIES CT DOSE: 1185.89 mGy.cm HISTORY: recent divertic surgery, epigastric pain pleuritic TECHNIQUE: Multiaxial CT images of the chest were performed following the intravenous administration of contrast to evaluate the pulmonary arteries. Maximal intensity projection images were also obtained. A dose lowering technique was utilized adhering to the principles of ALARA. COMPARISON STUDY: None. FINDINGS: The abdominal structures will be reported on the same day abdomen and pelvis CT. The thyroid gland enhances normally. No mediastinal or hilar lymphadenopathy. No pleural or pericardial effusions. Normal esophagus. The heart is normal in size. No acute fractures identified within the chest. Mild calcified plaque within the normal caliber thoracic aorta. No evidence for an aortic dissection. Mild to moderate coronary artery calcifications are noted. No filling defects within the pulmonary arteries to suggest a pulmonary embolus. There is mild central bronchial wall thickening. Otherwise, the airways appear patent. No pneumothorax. No focal lung consolidations to suggest a pneumonia. No evidence for pulmonary edema. IMPRESSION: 1. No evidence for a pulmonary embolus. 2. No focal lung consolidations to suggest a pneumonia. 3. Additional findings as described above. ACT 112: Negative or not required by law. Electronically signed by: Thomas Underwood M.D. 10/08/2022 4:37 PM ECG Data Attestation: I personally reviewed and interpreted this ECG as follows: (Sinus tachycardia with a rate of 101. Intervals within normal limits. No acute ST elevation. Compared to ECG from 08/08/2022, no significant change was found aside from rate.) MDM Narrative 62-year-old male recently discharged from [facility] for complex diverticulitis requiring IR drainage with a complex past medical history presents with 2 days of epigastric pain, nausea, and vomiting. See above for further details. On initial exam he is tachycardic with a heart rate of 112, hypertensive at 185/102, does admit that he probably vomited his morning antihypertensive medications, and is dry heaving when asked to take a deep breath. He is mildly uncomfortable appearing, nontoxic. The majority of his tenderness is located in the epigastrium, less tender in the lower abdomen which is much different than when he was dealing with his diverticulitis. Has not had any fevers. Was exposed to a coworker who also had several days of vomiting. Differential diagnosis considered as above. An IV was established and labs were obtained, IV fluids administered, oral mucous membranes are dry. Patient was given Zofran, morphine, GI cocktail, and pantoprazole. ECG shows no significant abnormality Labs demonstrate no leukocytosis or anemia. Chronic hyponatremia and hypochloremia at 132 and 92 respectively. Elevated calcium at 10.7, renal function is stable. Urine with 4+ bacteria, 10-30 white blood cells, 2+ leukocyte esterase, and minimally contaminated with 5-10 epithelial cells. Is 1 view chest x-ray shows no acute abnormalities. Due to patient's recent surgeries, pleuritic components of pain and multiple admissions, decided to obtain a CTA of the chest and a CT of the abdomen and pelvis. There is no evidence of PE or consolidation. His CT abdomen and pelvis demonstrates what appears to be a new 1.5 cm colovesicular fistula with air in the bladder, connecting the improved abscess abutting the bladder which is now 3.6 cm to the bladder. I discussed this with the patient and he did state that he has been urinating with air and mucus mixed in which was not elicited during the initial evaluation. Patient stabilized, his heart rate improved into the 80s and he remained normotensive. His nausea improved and he did not have any additional vomiting. He was given Zosyn. Patient will now require input from colorectal surgery as well as urology. I discussed the case with Dr. Arcos through [facility] given the patient's recent hospitalizations and procedures with them. She accepts the patient for transfer however no beds are available at this time, so the patient will be admitted under the [facility] hospitalist group for pain control, IV fluids, antiemetics, IV antibiotics, until a bed will be available likely within the next 48 hours. Updated patient at bedside. He is comfortable with this plan Impression Colonic fistula, Colonic diverticular abscess Discharge Plan Visit Data Chief Complaint: Vomiting Stated Complaint: VOMITING ED Provider: Javier Sanabria ED Midlevel Provider: Darnell Cortez Discharge Problem: Colonic fistula, Colonic diverticular abscess Patient Disposition: Admitted As Inpatient Condition: Fair Discharge Instructions Interventions: ED Discharge Assessment Last Done: 10/08/22 23:43
[2022-10-08] MEDS ORDERED: GI COCKTAIL ED USE PO ONE (14:14)
[2022-10-08] MEDS ORDERED: PANTOprazole 40 MG in SYRINGE 0 ML IV ONE (14:14)
[2022-10-08] MEDS ORDERED: ONDANSETRON INJ 2 MG/ML 2 ML VIAL IV STA (14:14)
[2022-10-08] MEDS ORDERED: MoRPHine SULFATE 4 MG/ML 1 ML CARP\\VIAL IV STA ×2 (14:14→21:49)
[2022-10-08] MEDS ORDERED: SODIUM CHLORIDE 0.9% 1000ML 1,000 ML IV ONE (14:18)
--- NOTE | 2022-10-08 14:36 | XRay Report ---
XR chest 1V portable HISTORY: epigastric pain/vomiting COMPARISON: Chest 11/09/2021. FINDINGS: The lungs are clear. Cardiac silhouette is normal in size. No pleural effusions. No pneumot horax. IMPRESSION: No acute process. ACT 112: Negative or not required by law. Electronically signed by: Thomas Underwood M.D. 10/08/2022 2:34 PM
[2022-10-08 14:44] LABS: Basophils # (auto) 0.03 K/uL (0-0.2); Basophils % (auto) 0.3 %; Eosinophils # (auto) 0.01 K/uL (0-0.50); Eosinophils % (auto) 0.1 %; Hematocrit (blood only) 42.4 % (42.0-52.0); Immature Granulocytes # (auto) 0.03 K/uL (0.01-0.20); Immature Granulocytes % (auto) 0.3 %; Lymphocytes # (auto) 1.12 K/uL (1.2-3.4); Lymphocytes % (auto) 12.4 %; Mean Corpuscular Hemoglobin 31.4 pg (25.0-34.0); Mean Corpuscular Hgb Conc 35.4 g/dL (32.0-36.0); Mean Corpuscular Volume 88.9 fL (80.0-100.0); Mean Platelet Volume 9.5 fL (9.4-12.4); Monocytes % (auto) 5.5 %; Neutrophils # (auto) 7.36 K/uL (1.40-6.50); Neutrophils % (auto) 81.4 %; Platelet Count 269 K/uL (130-400); RDW Coefficient of Variation 13.8 % (11.5-14.5); RDW Standard Deviation 44.7 fL (36.4-46.3); Red Blood Count 4.77 M/uL (4.70-6.10); White Blood Count 9.05 K/ul (4.8-10.8)
[2022-10-08 15:05] LABS: Albumin Globulin Ratio 1.1 (0.9-2); Albumin Level 4.6 gm/dl (3.4-5.0); BUN Creatinine Ratio 12.2 (10-20); Bilirubin,Total 0.8 mg/dl (0.2-1.0); Creatinine Clr Calc Pharmacy 103.4 ml/min; Est GFR (African American) 110.6 ml/min; Est GFR (Non-African American) 95.4 ml/min; Globulin 4.3 gm/dl (2.5-4.0); Magnesium 1.8 mg/dl (1.7-2.4); Potassium 3.8 mmol/L (3.5-5.1); Total Protein 8.9 gm/dl (6.0-8.3)
[2022-10-08 15:12] LABS: Troponin I High Sensitivity 9.9 pg/ml (0-20)
[2022-10-08] MEDS ORDERED: SODIUM CHLORIDE 0.9% 500 ML IV ONE (15:54)
[2022-10-08] MEDS ORDERED: OPTIRAY 320 500ml IV ONE (16:23)
--- NOTE | 2022-10-08 16:39 | CT Scan Report ---
CHEST CTA for PULMONARY ARTERIES CT DOSE: 1185.89 mGy.cm HISTORY: recent divertic surgery, epigastric pain pleuritic TECHNIQUE: Multiaxial CT images of the chest were performed following the intravenous administration of contrast to evaluate the pulmonary arteries. Maximal intensity projection images were also obtaine d. A dose lowering technique was utilized adhering to the principles of ALARA. COMPARISON STUDY: None. FINDINGS: The abdominal structures will be reported on the same day abdomen and pelvis CT. The thyroi d gland enhances normally. No mediastinal or hilar lymphadenopathy. No pleural or pericardial effusio ns. Normal esophagus. The heart is normal in size. No acute fractures identified within the chest. Mi ld calcified plaque within the normal caliber thoracic aorta. No evidence for an aortic dissection. M ild to moderate coronary artery calcifications are noted. No filling defects within the pulmonary art eries to suggest a pulmonary embolus. There is mild central bronchial wall thickening. Otherwise, the airways appear patent. No pneumothorax. No focal lung consolidations to suggest a pneumonia. No evid ence for pulmonary edema. IMPRESSION: 1. No evidence for a pulmonary embolus. 2. No focal lung consolidations to suggest a pneumonia. 3. Additional findings as described above. ACT 112: Negative or not required by law. Electronically signed by: Thomas Underwood M.D. 10/08/2022 4:37 PM
--- NOTE | 2022-10-08 18:35 | CT Scan Report ---
ABDOMEN AND PELVIS CT WITH IV CONTRAST CT DOSE: HISTORY: recent divertic surgery, epigastric pain pleuritic TECHNIQUE: Multiaxial CT images of the abdomen and pelvis were performed following the use of intrave nous contrast. A dose lowering technique was utilized adhering to the principles of ALARA. COMPARISON STUDY: Abdomen and pelvis CT 08/22/2022. FINDINGS: The lung bases are better appreciated on the same day chest CT. No pneumoperitoneum. No pne umatosis. No acute fractures identified. Small fat-containing right inguinal hernia, unchanged. Nodul ar contour to the liver consistent with mild cirrhosis. The main portal vein is patent. The gallbladd er, pancreas, spleen, and adrenal glands are unremarkable. The kidneys enhance normally. No hydroneph rosis. Calcified plaque within the normal caliber abdominal aorta. No retroperitoneal or pelvic lymph adenopathy. No pelvic free fluid. Thickening within the bladder at the dome and anteriorly. There is a 1.5 cm fistula located between the right anterior bladder dome and adjacent sigmoid colon. There is a persistent thick-walled 3.6 cm peripheral enhancing gas and fluid collection abutting the right an terior bladder consistent with a small residual abscess. This has improved in the interval when it me asured 6.5 cm. This smaller residual abscess also appears to connect to the colovesical fistula. Mult iple colonic diverticula. Mild residual thickening of the sigmoid colon. This suggests resolving dive rticulitis. No new areas of acute diverticulitis identified. No dilated loops of bowel to suggest an obstruction. Normal appendix. IMPRESSION: 1. Decrease in size in the now 3.6 cm residual abscess abutting the right anterior bladder. 2. There is a 1.5 cm colovesical fistula involving the sigmoid colon. This also appears to connect to the small residual abscess. 3. Mild cirrhosis. 4. Mild residual thickening of the sigmoid colon suggests resolving diverticulitis. No new areas of a cute diverticulitis identified. 5. Additional findings as described above. ACT 112: Negative or not required by law. Electronically signed by: Thomas Underwood M.D. 10/08/2022 6:34 PM
[2022-10-08 18:53] LABS: Appearance Urine Clear (Clear); Bacteria Urine Automated 4+ (Negative); Bilirubin Urine Negative (Negative); Blood Urine Negative (Negative); Cast Urine Automated 0 /lpf (0-5); Color Urine Yellow; Glucose Urine UA Negative (Negative); Ketones Urine Negative (Negative); Leukocyte Esterase Urine 2+ (Negative); Nitrite Urine Negative (Negative); Protein Urine Negative (Negative); RBC Urine Automated 0-4 /hpf (0-4); Specific Gravity Urine 1.028 (1.000-1.030); Urobilinogen Urine Negative (Negative); pH Urine 7.5 (4.5-7.5)
[2022-10-08] MEDS ORDERED: PIPERACILLIN/TAZOBACTAM 4.5 GM/120 ML BAG IV ONE (19:09)
--- NOTE | 2022-10-08 21:10 | History & Physical Report ---
Date of Service October 08, 2022 Assessment & Plan (1) Colovesical fistula: (2) Colonic diverticular abscess: (3) Tobacco use disorder: (4) Benign essential hypertension: (5) Hyperlipidemia: (6) Diabetes mellitus, type 2: (7) Peripheral arterial disease: (8) Barretts esophagus: (9) Chronic hepatitis C without mention of hepatic coma: Plan Colovesical fistula/colonic diverticular abscess/complicated UTI- NPO except essential meds Follow urine culture and sensitivity Zosyn 4.5 g IV every 8 hours Zofran 4 mg IV every 6 hours as needed for nausea or vomiting Pantoprazole 40 mg IV daily NSS + KCl 20 mEq at 80 mL/h Tamsulosin 0.4 mg p.o. daily Acetaminophen 650 mg p.o. every 6 hours as needed mild pain or fever Morphine sulfate 2 mg IV every 3 hours as needed for moderate pain Morphine sulfate 4 mg IV every 3 hours as needed for severe pain Patient has been accepted for transfer to [facility] in [place], where he has had his previous surgery, and will be transported when bed is available Hypertension- Hold valsartan/HCTZ Hydralazine 10 mg IV every 4 hours as needed for systolic blood pressure greater than 160 PAD- Hold aspirin and clopidogrel Hyperlipidemia- Hold atorvastatin Patient is full resuscitation DVT prophylaxis with SCDs History of Present Illness Chief Complaint: The patient presents to the emergency department with 2 days of worsening abdominal discomfort, nausea, vomiting urinating more concentrated urine, and occasionally having air or mucus released when he urinates Primary Care Provider: Vasiliy Moreno, AURELIANO, CAROLINE The patient is a 62-year-old male with a past medical history including tobacco use disorder, benign essential hypertension, hyperlipidemia, diabetes mellitus type 2, peripheral arterial disease, lumbar spinal canal stenosis, and colonic diverticular abscess. CT scan of the abdomen and pelvis this evening shows decreasing size to 3.6 cm residual abscess abutting right anterior bladder, with a 1.5 cm colovesical fistula involving the sigmoid colon, that also appears to connect to the small residual abscess. There is also mild cirrhosis, mild residual thickening of the sigmoid colon suggesting resolving diverticulitis, with no new areas of acute diverticulitis identified Allergies Allergy/AdvReac Type Severity Reaction Status Date / Time lisinopril AdvReac Severe COUGH Verified 10/08/22 17:17 Home Medications Medication Instructions Recorded Confirmed Type aspirin 81 mg tablet,delayed 81 mg PO DAILY 11/09/21 10/08/22 History release atorvastatin 40 mg tablet 40 mg PO HS #90 tabs 11/28/21 10/08/22 Rx valsartan 80 1 tab PO BID #180 tabs 06/27/22 10/08/22 Rx mg-hydrochlorothiazide 12.5 mg tablet acetaminophen 325 mg tablet 325 - 650 mg PO Q6H PRN Pain 08/28/22 10/08/22 History tamsulosin 0.4 mg capsule 0.4 mg PO DAILY #90 caps 09/25/22 10/08/22 Rx clopidogrel 75 mg tablet 75 mg PO QAM 10/08/22 10/08/22 History Past Med/Surg History Medical History (Updated 10/09/22 @ 01:51 by Jose Diaz MD) Adenomatous colon polyp Alcohol abuse, unspecified Barretts esophagus Benign essential hypertension Chronic hepatitis C without mention of hepatic coma Diabetes mellitus, type 2 TAKES NO MEDS/ DIET/ EXERCISE History of irregular heartbeat HX- HAD EKG AT [facility] THIS YEAR- SEES DR AT [facility]- PER THAT DOCTOR, NO ISSUES OR PROBLEMS Hyperlipidemia Neoplasm of soft tissues of head PAD (peripheral artery disease) Right leg pain S/P angiogram of extremity Tobacco use disorder Tubular adenoma of colon Surgical History Cyst REMOVED FROM BACK OF HEAD History of carpal tunnel release BILAT History of colonoscopy History of esophagogastroduodenoscopy (EGD) History of open reduction and internal fixation (ORIF) procedure RT LEG (HARDWARE INTACT) History of right cataract surgery Hx of vascular surgery BILAT UPPER ARTERIAL "POP" 5 YRS AGO- AT [facility]- FOLLOWS WITH [facility] (NO STENTS) Nausea and vomiting after administration of anesthetic agent Family History Mother Family history of diabetes mellitus Myocardial infarction Diabetes Stroke Father Myocardial infarction Cancer Brother Stroke Other Hypertension Denies family history of Ovarian cancer Prostate cancer Breast cancer Colorectal cancer Social History Smoking Status: Former smoker Tobacco Type: Cigarettes Age Started Using Tobacco: 17; Age Quit Using Tobacco: 49; packs per day: 1; Second Hand Exposure: Yes; Do You Dip or Chew Tobacco: No; Hx Alcohol Use: Yes Alcohol type: beer Hx Substance Use: No Preferred Language: [place] Communication Ability: Effective Visual Impairment: No Limitations Hearing Ability: Normal Computational Mathematician Required: No Beliefs That Will Affect Care: None marital status: Current Living Situation: Spouse current occupational status: employed current occupation: [employer] Other Information That Helps Us Care for You: No Feels Safe at Home: Yes Safety Concerns: Feels Safe At This Time Childhood Exposure to Second-Hand Smoke: Yes Diet Comment: regular Dental Care, Regularly: Yes Physical Activity Frequency: 5-6 Times per Week Seatbelt Use: always Sunscreen Use: Yes Assistive Devices: None Review of Systems Review of Systems: The patient denies chest pain, palpitations, shortness of breath, dyspnea on exertion, cough, lower extremity swelling, sore throat, fevers, chills, sweats, blood in urine or stool, dysuria, lightheadedness, dizziness, headache, memory loss, loss of consciousness, rash, abnormal bruising or bleeding, imbalance, focal or generalized weakness, numbness or tingling in arms or legs, generalized arthralgias or myalgias, back or neck pain, or night sweats. The review of systems is otherwise negative other than for that already noted above, and at least 10 systems have been reviewed. Physical Exam Constitutional: The patient is awake, alert and oriented 3, well developed and well nourished, normocephalic and atraumatic, lying in bed and in no acute distress. HEENT--PERRL, EOMI, mucous membranes and oropharynx normal. Neck--supple. No JVD. No bruits. Thyroid normal, trachea midline, no adenopathy. Heart--normal S1 and S2. No murmurs, rubs or gallops. Lungs--clear bilaterally, no respiratory distress, no accessory muscle use. Abdomen--normal bowel sounds and soft. Tender left lower quadrant and suprapubic area. Nondistended Extremities--no cyanosis or clubbing. No edema. There are good distal pulses b/l. Dermatologic--normal skin turgor, normal color, no abnormal lymph nodes, no rash. Neurologic--cranial nerves II through XII grossly intact. Rheumatologic--normal range of motion. Psychiatric--normal affect. Results & Data Results & Data Vital Signs (Past 12 Hours) Vital Signs Temp Pulse Pulse Resp BP BP Pulse Ox 10/08/22 18:00 82 16 145/87 H 95 10/08/22 16:42 88 10/08/22 16:39 90 16 135/90 94 10/08/22 15:45 94 H 18 92 10/08/22 15:45 94 H 18 188/106 H 92 10/08/22 13:49 36.6 C 112 H 20 185/102 H 96 O2 Del Method 10/08/22 18:00 Room Air 10/08/22 16:42 10/08/22 16:39 Room Air 10/08/22 15:45 Room Air 10/08/22 15:45 Room Air 10/08/22 13:49 Room Air Laboratory Results Laboratory Results WBC 9.05 K/ul (4.8-10.8) 10/08/22 14:25 RBC 4.77 M/uL (4.70-6.10) 10/08/22 14:25 Hgb 15.0 g/dl (14.0-18.0) 10/08/22 14:25 Hct 42.4 % (42.0-52.0) 10/08/22 14:25 MCV 88.9 fL (80.0-100.0) 10/08/22 14:25 MCH 31.4 pg (25.0-34.0) 10/08/22 14:25 MCHC 35.4 g/dL (32.0-36.0) 10/08/22 14:25 RDW Std Deviation 44.7 fL (36.4-46.3) 10/08/22 14:25 RDW Coeff of Silas 13.8 % (11.5-14.5) 10/08/22 14:25 Plt Count 269 K/uL (130-400) 10/08/22 14:25 MPV 9.5 fL (9.4-12.4) 10/08/22 14:25 Immature Gran % (Auto) 0.3 % 10/08/22 14:25 Neut % (Auto) 81.4 % 10/08/22 14:25 Lymph % (Auto) 12.4 % 10/08/22 14:25 [place] % (Auto) 5.5 % 10/08/22 14:25 Eos % (Auto) 0.1 % 10/08/22 14:25 Baso % (Auto) 0.3 % 10/08/22 14:25 Neut # (Auto) 7.36 K/uL (1.40-6.50) H 10/08/22 14:25 Lymph # (Auto) 1.12 K/uL (1.2-3.4) L 10/08/22 14:25 [place] # (Auto) 0.50 K/uL (0.11-0.59) 10/08/22 14:25 Eos # (Auto) 0.01 K/uL (0-0.50) 10/08/22 14:25 Baso # (Auto) 0.03 K/uL (0-0.2) 10/08/22 14:25 Immature Gran # (Auto) 0.03 K/uL (0.01-0.20) 10/08/22 14:25 Sodium 132 mmol/L (136-145) L 10/08/22 14:25 Potassium 3.8 mmol/L (3.5-5.1) 10/08/22 14:25 Chloride 92 mmol/L (98-107) L 10/08/22 14:25 Carbon Dioxide 31 mmol/L (21-32) 10/08/22 14:25 Anion Gap 9 (3-11) 10/08/22 14:25 BUN 10 mg/dl (6-23) 10/08/22 14:25 Creatinine 0.82 mg/dl (0.6-1.4) 10/08/22 14:25 Est Cr Clr Drug Dosing 103.4 ml/min 10/08/22 14:25 Est GFR ( Amer) 110.6 ml/min 10/08/22 14:25 Est GFR (Non-Af Amer) 95.4 ml/min 10/08/22 14:25 BUN/Creatinine Ratio 12.2 (10-20) 10/08/22 14:25 Glucose 140 mg/dl (70-99(Fasting)) H 10/08/22 14:25 Calcium 11.0 mg/dl (8.5-10.1) H 10/08/22 14:25 Magnesium 1.8 mg/dl (1.7-2.4) 10/08/22 14:25 Total Bilirubin 0.8 mg/dl (0.2-1.0) 10/08/22 14:25 AST 29 U/L (13-39) 10/08/22 14:25 ALT 25 U/L (7-52) 10/08/22 14:25 Alkaline Phosphatase 87 U/L (34-104) 10/08/22 14:25 Troponin I High Sens 9.9 pg/ml (0-20) 10/08/22 14:25 Total Protein 8.9 gm/dl (6.0-8.3) H 10/08/22 14:25 Albumin 4.6 gm/dl (3.4-5.0) 10/08/22 14:25 Globulin 4.3 gm/dl (2.5-4.0) H 10/08/22 14:25 Albumin/Globulin Ratio 1.1 (0.9-2) 10/08/22 14:25 Lipase 26 U/L (11-82) 10/08/22 14:25 Urine Color Yellow 10/08/22 17:42 Urine Appearance Clear (Clear) 10/08/22 17:42 Urine pH 7.5 (4.5-7.5) 10/08/22 17:42 Ur Specific [place] 1.028 (1.000-1.030) 10/08/22 17:42 Urine Protein Negative (Negative) 10/08/22 17:42 Urine Glucose (UA) Negative (Negative) 10/08/22 17:42 Urine Ketones Negative (Negative) 10/08/22 17:42 Urine Blood Negative (Negative) 10/08/22 17:42 Urine Nitrite Negative (Negative) 10/08/22 17:42 Urine Bilirubin Negative (Negative) 10/08/22 17:42 Urine Urobilinogen Negative (Negative) 10/08/22 17:42 Ur Leukocyte Esterase 2+ (Negative) H 10/08/22 17:42 Urine WBC (Auto) 10-30 /hpf (0-5) H 10/08/22 17:42 Urine RBC (Auto) 0-4 /hpf (0-4) 10/08/22 17:42 U Hyaline Cast (Auto) 0 /lpf (0-5) 10/08/22 17:42 U Epithel Cells (Auto) 5-10 /lpf (0-5) H 10/08/22 17:42 Urine Bacteria (Auto) 4+ (Negative) H 10/08/22 17:42 SARS-CoV-2, RNA, NAAT NEGATIVE (NEGATIVE) 10/08/22 15:38 Impressions Chest X-Ray 10/08/22 14:14 XR chest 1V portable HISTORY: epigastric pain/vomiting COMPARISON: Chest 11/09/2021. FINDINGS: The lungs are clear. Cardiac silhouette is normal in size. No pleural effusions. No pneumothorax. IMPRESSION: No acute process. ACT 112: Negative or not required by law. Electronically signed by: Thomas Underwood M.D. 10/08/2022 2:34 PM Abdomen/Pelvis CT 10/08/22 15:[address] WITH IV CONTRAST CT DOSE: HISTORY: recent divertic surgery, epigastric pain pleuritic TECHNIQUE: Multiaxial CT images of the abdomen and pelvis were performed following the use of intravenous contrast. A dose lowering technique was utilized adhering to the principles of ALARA. COMPARISON STUDY: Abdomen and pelvis CT 08/22/2022. FINDINGS: The lung bases are better appreciated on the same day chest CT. No pneumoperitoneum. No pneumatosis. No acute fractures identified. Small fat- containing right inguinal hernia, unchanged. Nodular contour to the liver consistent with mild cirrhosis. The main portal vein is patent. The gallbladder, pancreas, spleen, and adrenal glands are unremarkable. The kidneys enhance normally. No hydronephrosis. Calcified plaque within the normal caliber abdominal aorta. No retroperitoneal or pelvic lymphadenopathy. No pelvic free fluid. Thickening within the bladder at the dome and anteriorly. There is a 1.5 cm fistula located between the right anterior bladder dome and adjacent sigmoid colon. There is a persistent thick-walled 3.6 cm peripheral enhancing gas and fluid collection abutting the right anterior bladder consistent with a small residual abscess. This has improved in the interval when it measured 6.5 cm. This smaller residual abscess also appears to connect to the colovesical fistula. Multiple colonic diverticula. Mild residual thickening of the sigmoid colon. This suggests resolving diverticulitis. No new areas of acute diverticulitis identified. No dilated loops of bowel to suggest an obstruction. Normal appendix. IMPRESSION: 1. Decrease in size in the now 3.6 cm residual abscess abutting the right anterior bladder. 2. There is a 1.5 cm colovesical fistula involving the sigmoid colon. This also appears to connect to the small residual abscess. 3. Mild cirrhosis. 4. Mild residual thickening of the sigmoid colon suggests resolving diverticulitis. No new areas of acute diverticulitis identified. 5. Additional findings as described above. ACT 112: Negative or not required by law. Electronically signed by: Thomas Underwood M.D. 10/08/2022 6:34 PM Chest CTA 10/08/22 15:33 CHEST CTA for PULMONARY ARTERIES CT DOSE: 1185.89 mGy.cm HISTORY: recent divertic surgery, epigastric pain pleuritic TECHNIQUE: Multiaxial CT images of the chest were performed following the intravenous administration of contrast to evaluate the pulmonary arteries. Maximal intensity projection images were also obtained. A dose lowering technique was utilized adhering to the principles of ALARA. COMPARISON STUDY: None. FINDINGS: The abdominal structures will be reported on the same day abdomen and pelvis CT. The thyroid gland enhances normally. No mediastinal or hilar lymphadenopathy. No pleural or pericardial effusions. Normal esophagus. The heart is normal in size. No acute fractures identified within the chest. Mild calcified plaque within the normal caliber thoracic aorta. No evidence for an aortic dissection. Mild to moderate coronary artery calcifications are noted. No filling defects within the pulmonary arteries to suggest a pulmonary embolus. There is mild central bronchial wall thickening. Otherwise, the airways appear patent. No pneumothorax. No focal lung consolidations to suggest a pneumonia. No evidence for pulmonary edema. IMPRESSION: 1. No evidence for a pulmonary embolus. 2. No focal lung consolidations to suggest a pneumonia. 3. Additional findings as described above. ACT 112: Negative or not required by law. Electronically signed by: Thomas Underwood M.D. 10/08/2022 4:37 PM Code Status & VTE Plan Code Status Full code VTE Prophylaxis Plan VTE Prophylaxis will be ordered: Yes PG Care Time/CCT Total # of Minutes Spent Total Time Spent with Patient: Total time spent is greater than 50% in coordination of care (as documented) at patient's floor/unit and/or counseling patient: Coding Level of Care Code 14673 INT INP/OBS CARE 3/75MIN Diagnoses Colovesical fistula N32.1 Colonic diverticular abscess K57.20 Tobacco use disorder F17.200 Benign essential hypertension I10 Hyperlipidemia E78.5 Diabetes mellitus, type 2 E11.9 Peripheral arterial disease I73.9 Barretts esophagus K22.70 Chronic hepatitis C without mention of hepatic coma B18.2
[2022-10-08] MEDS ORDERED: MoRPHine SULFATE 4 MG/ML 1 ML CARP\\VIAL IV PRN (23:52)
[2022-10-08] MEDS ORDERED: MoRPHine SULFATE 2 MG/ML CARP IV PRN (23:52)
[2022-10-08] MEDS ORDERED: ACETAMINOPHEN 325 MG TAB PO PRN (23:52)
[2022-10-09] MEDS: NSS + 20MEQ KCL 20 MEQ/1,000 ML BAG IV SCH ×2 (00:28→13:52)
[2022-10-09] MEDS: PIPERACILLIN/TAZOBACTAM 4.5 GM in DEXTROSE 5% 100 ML IV SCH ×3 (00:31→15:50)
[2022-10-09 07:27] LABS: Basophils # (auto) 0.09 K/uL (0-0.2); Basophils % (auto) 1.3 %; Eosinophils # (auto) 0.14 K/uL (0-0.50); Eosinophils % (auto) 2.1 %; Hematocrit (blood only) 35.9 % (42.0-52.0); Hemoglobin 12.4 g/dl (14.0-18.0); Immature Granulocytes # (auto) 0.03 K/uL (0.01-0.20); Immature Granulocytes % (auto) 0.4 %; Lymphocytes % (auto) 20.6 %; Mean Corpuscular Hemoglobin 31.7 pg (25.0-34.0); Mean Corpuscular Hgb Conc 34.5 g/dL (32.0-36.0); Mean Corpuscular Volume 91.8 fL (80.0-100.0); Mean Platelet Volume 9.5 fL (9.4-12.4); Monocytes # (auto) 0.64 K/uL (0.11-0.59); Monocytes % (auto) 9.4 %; Neutrophils # (auto) 4.49 K/uL (1.40-6.50); Neutrophils % (auto) 66.2 %; Platelet Count 194 K/uL (130-400); RDW Coefficient of Variation 14.3 % (11.5-14.5); RDW Standard Deviation 47.8 fL (36.4-46.3); Red Blood Count 3.91 M/uL (4.70-6.10); White Blood Count 6.79 K/ul (4.8-10.8)
[2022-10-09 07:58] LABS: Albumin Globulin Ratio 1.3 (0.9-2); Albumin Level 3.6 gm/dl (3.4-5.0); Bilirubin,Total 0.8 mg/dl (0.2-1.0); Calcium 9.3 mg/dl (8.5-10.1); Creatinine Clr Calc Pharmacy 102.9 ml/min; Est GFR (African American) 110.6 ml/min; Est GFR (Non-African American) 95.4 ml/min; Globulin 2.8 gm/dl (2.5-4.0); Potassium 3.8 mmol/L (3.5-5.1); Total Protein 6.4 gm/dl (6.0-8.3)
[2022-10-09] MEDS: TAMSULOSIN HCL 0.4 MG CAP PO SCH (08:29)
[2022-10-09] MEDS: PANTOprazole 40 MG in SYRINGE 0 ML IV SCH (10:18)
--- NOTE | 2022-10-09 10:50 | Electrocardiogram Report ---
Test Reason : Blood Pressure : / mmHG Vent. Rate : 101 BPM Atrial Rate : 101 BPM P-R Int : 134 ms QRS Dur : 080 ms QT Int : 340 ms P-R-T Axes : 041 004 029 degrees QTc Int : 440 ms Sinus tachycardia Low voltage QRS Abnormal ECG When compared with ECG of 08-AUG-2022 08:32, Nonspecific T wave abnormality now evident in Anterior leads Confirmed by John Paul ([id number]) on 10/09/2022 10:50:12 AM Referred By: REFERRED SELF Confirmed By:Rai Paul
--- NOTE | 2022-10-09 16:15 | XRay Report ---
XR foot RT min 3V routine CLINICAL HISTORY: recent mid-foot pain; eval CPPD, fracture, etc TECHNIQUE: 3 views of the right foot were obtained. Comparison: None available at the time of this dictation. FINDINGS: No fractures are present. Minimal degenerative changes are seen. Fixation hardware is seen about the tibia and fibula. No soft tissue abnormality is seen. IMPRESSION: No acute abnormalities and in particular no evidence of acute fracture. Mild degenerative changes are seen. ACT 112: Negative or not required by law. Electronically signed by: Cory Saleem M.D. 10/09/2022 4:14 PM
[2022-10-09] MEDS ORDERED: KETOROLAC 30 MG/ML VIAL IV ONE (18:56)
--- NOTE | 2022-10-09 19:19 | Hospitalist Progress Note ---
Date of Service October 09, 2022 Assessment & Plan (1) Sigmoid diverticulitis: Plan: Had such in 07/2022 requiring hospitalization at [facility] in [place]. Had diverticular abscess which underwent IR drainage. Records indicate he was d/c home on course of PO cipro/flagyl. He met with colorectal surgery post-discharge and they were planning elective sigmoid resection later this spring. Now presenting with recurrent abd pain and CT as below -- CT a/p 10/08/22 - FINDINGS: The lung bases are better appreciated on the same day chest CT. No pneumoperitoneum. No pneumatosis. No acute fractures identified. Small fat- containing right inguinal hernia, unchanged. Nodular contour to the liver consistent with mild cirrhosis. The main portal vein is patent. The gallbladder, pancreas, spleen, and adrenal glands are unremarkable. The kidneys enhance normally. No hydronephrosis. Calcified plaque within the normal caliber abdominal aorta. No retroperitoneal or pelvic lymphadenopathy. No pelvic free fluid. Thickening within the bladder at the dome and anteriorly. There is a 1.5 cm fistula located between the right anterior bladder dome and adjacent sigmoid colon. There is a persistent thick-walled 3.6 cm peripheral enhancing gas and fluid collection abutting the right anterior bladder consistent with a small residual abscess. This has improved in the interval when it measured 6.5 cm. This smaller residual abscess also appears to connect to the colovesical fistula. Multiple colonic diverticula. Mild residual thickening of the sigmoid colon. This suggests resolving diverticulitis. No new areas of acute diverticulitis identified. No dilated loops of bowel to suggest an obstruction. Normal appendix. IMPRESSION: 1. Decrease in size in the now 3.6 cm residual abscess abutting the right anterior bladder. 2. There is a 1.5 cm colovesical fistula involving the sigmoid colon. This also appears to connect to the small residual abscess. 3. Mild cirrhosis. 4. Mild residual thickening of the sigmoid colon suggests resolving diverticulitis. No new areas of acute diverticulitis identified. Patient has been accepted to [facility] in [place]; likely to need surgical intervention While awaiting Tx cont broad-spectrum IV abx with zosyn. Cont IV fluids, pain meds, etc. Keep NPO today except ice chips. Consider sips of clears tomorrow. All paperwork for transfer to [place] is complete. (2) Colonic diverticular abscess: Plan: Had such 07/2022 s/p IR drainage, but this abscess has returned. Cont IV zosyn, etc. (3) Colovesical fistula: Plan: He reports seeing flecks of stool in his urine and copious passage of gas He has a GNR UTI. Zosyn should suffice. Follow culture. He will likely need surgical intervention upon transfer to [facility] for #1/#2/#3 given the recurrent nature of this problem. (4) UTI (urinary tract infection): Plan: 2nd to colo-vesicular fistula 2nd to GNR, final cx pending IV zosyn should suffice (5) Acute gout: Plan: right great toe, left ankle due to NPO status will employ toradol 30mg IV q6h prn ideally short course of steroids would be best but will defer given #1/#2 would NOT resume HCTZ in future he has been having recurrent attacks over the last few months he may benefit from allopurinol or uloric prophylaxis down the line check uric acid level in am due to trauma to R foot at stay in [place] I ordered x-rays of R foot today - no fracture (6) Tobacco use disorder: Plan: desperately needs to quit smoking in light of the above (7) Benign essential hypertension: Plan: holding ARB/HCTZ given his recurrent, suspected gout attacks would NOT resume HCTZ in future cont flomax (8) Hyperlipidemia: Plan: hold statin (9) Diabetes mellitus, type 2: Plan: a1c 6.5% in 06/2022 diet control has been employed at home (10) Peripheral arterial disease: Plan: h/o fem-pop bypass in the past holding plavix in the event he needs surgical intervention for #1/#2/#3 upon transfer to [facility] hold asa (11) Barretts esophagus: Plan: IV PPI (12) Chronic hepatitis C without mention of hepatic coma: Plan: HepC previously treated by report mild cirrhotic appearing liver on imaging but is compensated on exam Plan cont IV fluids await transfer to [facility] in [place] repeat labs am Admission and Anticipated Discharge Date Admission Date: October 08, 2022 Subjective 2 visits to pt's bedside today first was early afternoon rounds he was doing ok at that time abd pain improved no further nausea or emesis about this time we contacted [facility] and no bed was available yet for him he told a story about his stay at [facility] earlier this year during his first bought of diverticulitis with abscess about the time of discharge he had developed SEVERE b/l foot pain he remembers hitting his right foot on an IV pole during that stay at [facility] never had right foot x-rays this impaired his ability to walk when he got home he used motrin with ice and this helped considerably told him this story was suspicious for gout 2nd visit was early evening received correspondence from his nurse that he had developed acute pain in both feet went back to bedside - he had pain/swelling in R great toe MTP joint - started in afternoon also had L ankle pain - started in afternoon since developing this he has had difficulty weight-bearing Review of Systems Review of Systems: gen - no fevers cv - no cp, no orthopnea pulm - no dyspnea GI - passing flatus; no rectal bleeding; no N/V musculo - foot pain (see subjective portion of note) Physical Exam Physical Exam: gen - NAD, nontoxic, pleasant mouth - MMM neck - no JVD heart - RRR, s1 s2, no murmur lungs - CTA b/l abd - soft NT ND BS+; no HSM ext - no edema, pulses 2+ b/l musculo - right great toe first MTP joint - mild swelling/tenderness to palpation/mildly warm; left ankle - minimal swelling but very tender to palpation and tender with passive ROM Results & Data Results & Data Vital Signs (Past 12 Hours) Vital Signs Temp Pulse Pulse Resp BP Pulse Ox O2 Del Method 10/09/22 14:14 75 10/09/22 15:01 36.9 C 55 L 18 131/78 95 Room Air 10/09/22 10:00 Room Air 10/09/22 10:59 36.9 C 66 18 132/72 96 Room Air 10/09/22 07:37 36.7 C 71 18 122/74 96 Room Air Laboratory Results Laboratory Results - last 24 hr 10/09/22 10/09/22 07:02 07:02 WBC 6.79 RBC 3.91 L Hgb 12.4 L Hct 35.9 L MCV 91.8 MCH 31.7 MCHC 34.5 RDW Std Deviation 47.8 H RDW Coeff of Silas 14.3 Plt Count 194 MPV 9.5 Immature Gran % (Auto) 0.4 Neut % (Auto) 66.2 Lymph % (Auto) 20.6 [place] % (Auto) 9.4 Eos % (Auto) 2.1 Baso % (Auto) 1.3 Neut # (Auto) 4.49 Lymph # (Auto) 1.40 [place] # (Auto) 0.64 H Eos # (Auto) 0.14 Baso # (Auto) 0.09 Immature Gran # (Auto) 0.03 Sodium 135 L Potassium 3.8 Chloride 101 Carbon Dioxide 29 Anion Gap 5 BUN 9 Creatinine 0.82 Est Cr Clr Drug Dosing 102.9 Est GFR ( Amer) 110.6 Est GFR (Non-Af Amer) 95.4 BUN/Creatinine Ratio 11.0 Glucose 114 H Calcium 9.3 Magnesium 2.0 Total Bilirubin 0.8 AST 21 ALT 19 Alkaline Phosphatase 59 Total Protein 6.4 D Albumin 3.6 Globulin 2.8 Albumin/Globulin Ratio 1.3 PG Care Time/CCT Total # of Minutes Spent Total Time Spent with Patient: Total time spent is greater than 50% in coordination of care (as documented) at patient's floor/unit and/or counseling patient: Coding Level of Care Code 92283 SUB INP/OBS CARE 3/50MIN Diagnoses Sigmoid diverticulitis K57.32 Colonic diverticular abscess K57.20 Colovesical fistula N32.1 UTI (urinary tract infection) N39.0 Acute gout M10.9 Tobacco use disorder F17.200 Benign essential hypertension I10 Hyperlipidemia E78.5 Diabetes mellitus, type 2 E11.9 Peripheral arterial disease I73.9 Barretts esophagus K22.70 Chronic hepatitis C without mention of hepatic coma B18.2
[2022-10-10] MEDS ORDERED: PIPERACILLIN/TAZOBACTAM 4.5 GM in DEXTROSE 5% 100 ML IV SCH
[2022-10-10] MEDS: PIPERACILLIN/TAZOBACTAM 4.5 GM in DEXTROSE 5% 100 ML IV SCH ×4 (00:24→23:48)
[2022-10-10] MEDS: KETOROLAC 30 MG/ML VIAL IV PRN ×4 (01:33→23:48)
[2022-10-10] MEDS: NSS + 20MEQ KCL 20 MEQ/1,000 ML BAG IV SCH ×2 (02:20→16:10)
[2022-10-10 07:09] LABS: Basophils # (auto) 0.08 K/uL (0-0.2); Basophils % (auto) 1.4 %; Eosinophils # (auto) 0.17 K/uL (0-0.50); Hematocrit (blood only) 34.8 % (42.0-52.0); Hemoglobin 11.9 g/dl (14.0-18.0); Immature Granulocytes # (auto) 0.02 K/uL (0.01-0.20); Immature Granulocytes % (auto) 0.4 %; Lymphocytes # (auto) 1.21 K/uL (1.2-3.4); Lymphocytes % (auto) 21.6 %; Mean Corpuscular Hemoglobin 31.4 pg (25.0-34.0); Mean Corpuscular Hgb Conc 34.2 g/dL (32.0-36.0); Mean Corpuscular Volume 91.8 fL (80.0-100.0); Mean Platelet Volume 10.2 fL (9.4-12.4); Monocytes # (auto) 0.57 K/uL (0.11-0.59); Monocytes % (auto) 10.2 %; Neutrophils # (auto) 3.56 K/uL (1.40-6.50); Neutrophils % (auto) 63.4 %; Platelet Count 169 K/uL (130-400); RDW Coefficient of Variation 13.9 % (11.5-14.5); RDW Standard Deviation 46.8 fL (36.4-46.3); Red Blood Count 3.79 M/uL (4.70-6.10); White Blood Count 5.61 K/ul (4.8-10.8)
[2022-10-10 07:28] LABS: BUN Creatinine Ratio 12.9 (10-20); Est GFR (African American) 102.3 ml/min; Est GFR (Non-African American) 88.3 ml/min; Uric Acid 5.1 mg/dl (2.6-7.2)
[2022-10-10] MEDS: TAMSULOSIN HCL 0.4 MG CAP PO SCH (07:58)
[2022-10-10] MEDS: hydrALAZINE HCL 20 MG/ML VIAL IV PRN (07:59)
[2022-10-10] MEDS: PANTOprazole 40 MG in SYRINGE 0 ML IV SCH (10:52)
--- NOTE | 2022-10-10 11:29 | Hospitalist Progress Note ---
Date of Service October 10, 2022 Assessment & Plan (1) Sigmoid diverticulitis: Plan: Had such in 07/2022 requiring hospitalization at [facility] in [place]. Had diverticular abscess which underwent IR drainage. Records indicate he was d/c home on course of PO cipro/flagyl. He met with colorectal surgery post-discharge and they were planning elective sigmoid resection later this spring. Now presenting with recurrent abd pain and CT as below -- CT a/p 10/08/22 - FINDINGS: The lung bases are better appreciated on the same day chest CT. No pneumoperitoneum. No pneumatosis. No acute fractures identified. Small fat- containing right inguinal hernia, unchanged. Nodular contour to the liver consistent with mild cirrhosis. The main portal vein is patent. The gallbladder, pancreas, spleen, and adrenal glands are unremarkable. The kidneys enhance normally. No hydronephrosis. Calcified plaque within the normal caliber abdominal aorta. No retroperitoneal or pelvic lymphadenopathy. No pelvic free fluid. Thickening within the bladder at the dome and anteriorly. There is a 1.5 cm fistula located between the right anterior bladder dome and adjacent sigmoid colon. There is a persistent thick-walled 3.6 cm peripheral enhancing gas and fluid collection abutting the right anterior bladder consistent with a small residual abscess. This has improved in the interval when it measured 6.5 cm. This smaller residual abscess also appears to connect to the colovesical fistula. Multiple colonic diverticula. Mild residual thickening of the sigmoid colon. This suggests resolving diverticulitis. No new areas of acute diverticulitis identified. No dilated loops of bowel to suggest an obstruction. Normal appendix. IMPRESSION: 1. Decrease in size in the now 3.6 cm residual abscess abutting the right anterior bladder. 2. There is a 1.5 cm colovesical fistula involving the sigmoid colon. This also appears to connect to the small residual abscess. 3. Mild cirrhosis. 4. Mild residual thickening of the sigmoid colon suggests resolving diverticulitis. No new areas of acute diverticulitis identified. Patient has been accepted to [facility] in [place]; likely to need surgical intervention While awaiting Tx cont broad-spectrum IV abx with zosyn. Cont IV fluids, pain meds, etc. Keep NPO today except ice chips. Consider sips of clears tomorrow. All paperwork for transfer to [place] is complete. Present on Admission?: Yes (2) Colonic diverticular abscess: Plan: Had such 07/2022 s/p IR drainage, but this abscess has returned. Cont IV zosyn, etc. Present on Admission?: Yes (3) Colovesical fistula: Plan: He reports seeing flecks of stool in his urine and copious passage of gas He has a GNR UTI. Zosyn should suffice. Follow culture. He will likely need surgical intervention upon transfer to [facility] for #1/#2/#3 given the recurrent nature of this problem. Present on Admission?: Yes (4) UTI (urinary tract infection): Plan: 2nd to colo-vesicular fistula Klebsiella sensitive to Zosyn IV zosyn should suffice Present on Admission?: Yes (5) Acute gout: Plan: right great toe, left ankle due to NPO status will employ toradol 30mg IV q6h prn ideally short course of steroids would be best but will defer given #1/#2 markedly improved would NOT resume HCTZ in future he has been having recurrent attacks over the last few months he may benefit from allopurinol or uloric prophylaxis down the line uric acid level 5.1 (6) Tobacco use disorder: Plan: desperately needs to quit smoking in light of the above (7) Benign essential hypertension: Plan: holding ARB/HCTZ BP currently 161/79. BP has been labile past 24 hrs, though high probability will need to resume anti HTN in near future, for now would continue prn Hydralazine as ordered given his recurrent, suspected gout attacks would NOT resume HCTZ in future cont flomax (8) Hyperlipidemia: Plan: hold statin (9) Diabetes mellitus, type 2: Plan: a1c 6.5% in 06/2022 diet control has been employed at home (10) Peripheral arterial disease: Plan: h/o fem-pop bypass in the past holding plavix in the event he needs surgical intervention for #1/#2/#3 upon transfer to [facility] hold asa (11) Barretts esophagus: Plan: IV PPI (12) Chronic hepatitis C without mention of hepatic coma: Plan: HepC previously treated by report mild cirrhotic appearing liver on imaging but is compensated on exam Plan cont IV fluids await transfer to [facility] in [place] repeat labs am Admission and Anticipated Discharge Date Admission Date: October 08, 2022 [facility] was contacted and no bed was available as of now for him about the time of discharge he had developed SEVERE b/l foot pain he remembers hitting his right foot on an IV pole during that stay at [facility] never had right foot x-rays this impaired his ability to walk when he got home he used motrin with ice and this helped considerably told him this story was suspicious for gout On reevaluation yesterday, he had findings consistent with acute gout, pain diminished today Review of Systems Respiratory: denies symptoms Cardiovascular: Additional Comments: no chest pain Gastrointestinal: passing flatus when urinates Physical Exam Physical Exam: WDWN WM in NAD Respiratory: normal respiratory effort, lungs clear to auscultation Cardiovascular: RRR, no murmur, no edema Gastrointestinal (Abdomen): soft, mildly distended, BS are active Results & Data Results & Data Vital Signs (Past 12 Hours) Vital Signs Temp Pulse Resp BP Pulse Ox O2 Del Method 10/10/22 11:07 36.8 C 83 16 161/79 H 98 Room Air 10/10/22 08:00 36.8 C 60 18 169/99 H 97 Room Air 10/10/22 03:15 36.7 C 57 L 16 150/74 H 96 Room Air Laboratory Results WBC 9.05-->5.61 PG Care Time/CCT Total # of Minutes Spent Total Time Spent with Patient: Total time spent is greater than 50% in coordination of care (as documented) at patient's floor/unit and/or counseling patient: Coding Level of Care Code 48376 SUB INP/OBS CARE 2/35MIN Diagnoses Sigmoid diverticulitis K57.32 Colonic diverticular abscess K57.20 Colovesical fistula N32.1 UTI (urinary tract infection) N39.0 Acute gout M10.9 Tobacco use disorder F17.200 Benign essential hypertension I10 Hyperlipidemia E78.5 Diabetes mellitus, type 2 E11.9 Peripheral arterial disease I73.9 Barretts esophagus K22.70 Chronic hepatitis C without mention of hepatic coma B18.2
[2022-10-11] MEDS: NSS + 20MEQ KCL 20 MEQ/1,000 ML BAG IV SCH ×2 (04:49→14:56)
[2022-10-11 06:57] LABS: Basophils # (auto) 0.07 K/uL (0-0.2); Basophils % (auto) 1.1 %; Eosinophils # (auto) 0.14 K/uL (0-0.50); Eosinophils % (auto) 2.2 %; Hematocrit (blood only) 35.5 % (42.0-52.0); Hemoglobin 12.4 g/dl (14.0-18.0); Immature Granulocytes # (auto) 0.01 K/uL (0.01-0.20); Immature Granulocytes % (auto) 0.2 %; Lymphocytes # (auto) 1.05 K/uL (1.2-3.4); Lymphocytes % (auto) 16.2 %; Mean Corpuscular Hgb Conc 34.9 g/dL (32.0-36.0); Mean Corpuscular Volume 91.5 fL (80.0-100.0); Mean Platelet Volume 9.9 fL (9.4-12.4); Monocytes # (auto) 0.55 K/uL (0.11-0.59); Monocytes % (auto) 8.5 %; Neutrophils # (auto) 4.66 K/uL (1.40-6.50); Neutrophils % (auto) 71.8 %; Platelet Count 173 K/uL (130-400); RDW Coefficient of Variation 13.6 % (11.5-14.5); RDW Standard Deviation 45.9 fL (36.4-46.3); Red Blood Count 3.88 M/uL (4.70-6.10); White Blood Count 6.48 K/ul (4.8-10.8)
[2022-10-11] MEDS: PIPERACILLIN/TAZOBACTAM 4.5 GM in DEXTROSE 5% 100 ML IV SCH ×2 (08:12→16:07)
[2022-10-11] MEDS: hydrALAZINE HCL 20 MG/ML VIAL IV PRN (08:12)
[2022-10-11] MEDS: TAMSULOSIN HCL 0.4 MG CAP PO SCH (08:13)
[2022-10-11] MEDS: PANTOprazole 40 MG in SYRINGE 0 ML IV SCH (10:27)
--- NOTE | 2022-10-11 12:27 | Hospitalist Progress Note ---
Date of Service October 11, 2022 Assessment & Plan (1) Sigmoid diverticulitis: Plan: Had such in 07/2022 requiring hospitalization at [facility] in [place]. Had diverticular abscess which underwent IR drainage. Records indicate he was d/c home on course of PO cipro/flagyl. He met with colorectal surgery post-discharge and they were planning elective sigmoid resection later this spring, in November. Now presenting with recurrent abd pain and CT as below -- CT a/p 10/08/22 - FINDINGS: The lung bases are better appreciated on the same day chest CT. No pneumoperitoneum. No pneumatosis. No acute fractures identified. Small fat- containing right inguinal hernia, unchanged. Nodular contour to the liver consistent with mild cirrhosis. The main portal vein is patent. The gallbladder, pancreas, spleen, and adrenal glands are unremarkable. The kidneys enhance normally. No hydronephrosis. Calcified plaque within the normal caliber abdominal aorta. No retroperitoneal or pelvic lymphadenopathy. No pelvic free fluid. Thickening within the bladder at the dome and anteriorly. There is a 1.5 cm fistula located between the right anterior bladder dome and adjacent sigmoid colon. There is a persistent thick-walled 3.6 cm peripheral enhancing gas and fluid collection abutting the right anterior bladder consistent with a small residual abscess. This has improved in the interval when it measured 6.5 cm. This smaller residual abscess also appears to connect to the colovesical fistula. Multiple colonic diverticula. Mild residual thickening of the sigmoid colon. This suggests resolving diverticulitis. No new areas of acute diverticulitis identified. No dilated loops of bowel to suggest an obstruction. Normal appendix. IMPRESSION: 1. Decrease in size in the now 3.6 cm residual abscess abutting the right anterior bladder. 2. There is a 1.5 cm colovesical fistula involving the sigmoid colon. This also appears to connect to the small residual abscess. 3. Mild cirrhosis. 4. Mild residual thickening of the sigmoid colon suggests resolving diverticulitis. No new areas of acute diverticulitis identified. Patient has been accepted to [facility] in [place]; likely to need surgical intervention While awaiting Tx cont broad-spectrum IV abx with zosyn. Cont IV fluids, pain meds, etc. Pt was NPO and has per him, really hasn't taken adequate oral intake since last Sunday (10/04) he is hungry and would like to eat. Will advance to full liquids with supplement. RN updated, if pain increases, will quickly reduce dietary intake All paperwork for transfer to [place] is complete. Hopefully will hear today (2) Colonic diverticular abscess: Plan: Had such 07/2022 s/p IR drainage, but this abscess has returned. Cont IV zosyn, etc. (3) Colovesical fistula: Plan: He reports seeing flecks of stool in his urine and copious passage of gas He has a GNR UTI. Zosyn should suffice. Follow culture. Klebsiella de sensitive though would prefer to continue broad spectrum abx due to fistula He will likely need surgical intervention upon transfer to [facility] for #1/#2/#3 given the recurrent nature of this problem. (4) UTI (urinary tract infection): Plan: 2nd to colo-vesicular fistula Klebsiella sensitive to Zosyn IV zosyn should suffice (5) Acute gout: Plan: right great toe, left ankle with resolution of symptoms, will dc Toradol ideally short course of steroids would be best but will defer given #1/#2 markedly improved would NOT resume HCTZ in future he has been having recurrent attacks over the last few months he may benefit from allopurinol or uloric prophylaxis down the line uric acid level 5.1 (6) Tobacco use disorder: Plan: desperately needs to quit smoking in light of the above. Reviewed with pt, he states he has no plans to resume (7) Benign essential hypertension: Plan: holding ARB/HCTZ BP currently 157/80. BP has been labile past 24 hrs, though high probability will need to resume anti HTN in near future, for now would continue prn Hydralazine as ordered given his recurrent, suspected gout attacks would NOT resume HCTZ in future cont flomax (8) Hyperlipidemia: Plan: hold statin (9) Diabetes mellitus, type 2: Plan: a1c 6.5% in 06/2022 diet control has been employed at home (10) Peripheral arterial disease: Plan: h/o fem-pop bypass in the past holding plavix in the event he needs surgical intervention for #1/#2/#3 upon transfer to [facility] hold asa (11) Barretts esophagus: Plan: IV PPI (12) Chronic hepatitis C without mention of hepatic coma: Plan: HepC previously treated by report mild cirrhotic appearing liver on imaging but is compensated on exam Plan cont IV fluids await transfer to [facility] in [place] repeat labs am Admission and Anticipated Discharge Date Admission Date: October 08, 2022 [facility] was contacted and no bed was available as of now for him about the time of discharge he had developed SEVERE b/l foot pain he remembers hitting his right foot on an IV pole during that stay at [facility] never had right foot x-rays this impaired his ability to walk when he got home he used motrin with ice and this helped considerably told him this story was suspicious for gout On reevaluation 10/09, he had findings consistent with acute gout, pain, redness essentially resolved today Review of Systems Review of Systems: gen - afebrile cv - no cp, no orthopnea pulm - no dyspnea GI - passing flatus; no rectal bleeding; no N/V, passed flatus via urine, but had 2 BM's yesterday and 1 today (small amount of stool) musculo - foot pain resolved Respiratory: denies symptoms Cardiovascular: Additional Comments: no chest pain Gastrointestinal: passing flatus when urinates Physical Exam Physical Exam: WDWN WM in NAD Respiratory: normal respiratory effort, lungs clear to auscultation Cardiovascular: RRR, no murmur, no edema Gastrointestinal (Abdomen): soft, nontender, active BS Results & Data Results & Data Vital Signs (Past 12 Hours) Vital Signs Temp Pulse Resp BP Pulse Ox O2 Del Method 10/11/22 08:59 157/80 H 10/11/22 08:02 175/82 H 10/11/22 08:24 36.4 C 58 L 18 177/81 H 97 Room Air 10/11/22 03:38 36.6 C 60 18 159/81 H 96 Room Air Laboratory Results WBC 6.48 PG Care Time/CCT Total # of Minutes Spent Total Time Spent with Patient: Total time spent is greater than 50% in coordination of care (as documented) at patient's floor/unit and/or counseling patient: Coding Level of Care Code 79444 SUB INP/OBS CARE 235MIN Diagnoses Sigmoid diverticulitis K57.32 Colonic diverticular abscess K57.20 Colovesical fistula N32.1 UTI (urinary tract infection) N39.0 Acute gout M10.9 Tobacco use disorder F17.200 Benign essential hypertension I10 Hyperlipidemia E78.5 Diabetes mellitus, type 2 E11.9 Peripheral arterial disease I73.9 Barretts esophagus K22.70 Chronic hepatitis C without mention of hepatic coma B18.2
[2022-10-12] MEDS: PIPERACILLIN/TAZOBACTAM 4.5 GM in DEXTROSE 5% 100 ML IV SCH ×3 (00:48→15:57)
[2022-10-12] MEDS: NSS + 20MEQ KCL 20 MEQ/1,000 ML BAG IV SCH ×2 (02:51→15:52)
[2022-10-12] MEDS: hydrALAZINE HCL 20 MG/ML VIAL IV PRN (03:41)
[2022-10-12 07:08] LABS: Basophils # (auto) 0.06 K/uL (0-0.2); Basophils % (auto) 1.1 %; Eosinophils # (auto) 0.15 K/uL (0-0.50); Eosinophils % (auto) 2.8 %; Hematocrit (blood only) 34.9 % (42.0-52.0); Hemoglobin 12.3 g/dl (14.0-18.0); Immature Granulocytes # (auto) 0.01 K/uL (0.01-0.20); Immature Granulocytes % (auto) 0.2 %; Lymphocytes % (auto) 20.6 %; Mean Corpuscular Hemoglobin 31.2 pg (25.0-34.0); Mean Corpuscular Hgb Conc 35.2 g/dL (32.0-36.0); Mean Corpuscular Volume 88.6 fL (80.0-100.0); Mean Platelet Volume 10.2 fL (9.4-12.4); Monocytes # (auto) 0.67 K/uL (0.11-0.59); Monocytes % (auto) 12.5 %; Neutrophils # (auto) 3.36 K/uL (1.40-6.50); Neutrophils % (auto) 62.8 %; Platelet Count 173 K/uL (130-400); RDW Coefficient of Variation 13.8 % (11.5-14.5); Red Blood Count 3.94 M/uL (4.70-6.10); White Blood Count 5.35 K/ul (4.8-10.8)
[2022-10-12 07:24] LABS: Albumin Globulin Ratio 1.3 (0.9-2); Albumin Level 3.6 gm/dl (3.4-5.0); BUN Creatinine Ratio 9.1 (10-20); Bilirubin,Total 0.8 mg/dl (0.2-1.0); Creatinine Clr Calc Pharmacy 110.2 ml/min; Est GFR (African American) 113.5 ml/min; Est GFR (Non-African American) 97.9 ml/min; Globulin 2.7 gm/dl (2.5-4.0); Total Protein 6.3 gm/dl (6.0-8.3)
[2022-10-12] MEDS: TAMSULOSIN HCL 0.4 MG CAP PO SCH (09:57)
[2022-10-12] MEDS: PANTOprazole 40 MG in SYRINGE 0 ML IV SCH (12:37)
--- NOTE | 2022-10-12 15:30 | Hospitalist Progress Note ---
Date of Service October 12, 2022 Assessment & Plan (1) Sigmoid diverticulitis: Plan: Had such in 07/2022 requiring hospitalization at [facility] in [place]. Had diverticular abscess which underwent IR drainage. Records indicate he was d/c home on course of PO cipro/flagyl. He met with colorectal surgery post-discharge and they were planning elective sigmoid resection later this spring, in November. Now presenting with recurrent abd pain and CT as below -- CT a/p 10/08/22 - FINDINGS: The lung bases are better appreciated on the same day chest CT. No pneumoperitoneum. No pneumatosis. No acute fractures identified. Small fat- containing right inguinal hernia, unchanged. Nodular contour to the liver consistent with mild cirrhosis. The main portal vein is patent. The gallbladder, pancreas, spleen, and adrenal glands are unremarkable. The kidneys enhance normally. No hydronephrosis. Calcified plaque within the normal caliber abdominal aorta. No retroperitoneal or pelvic lymphadenopathy. No pelvic free fluid. Thickening within the bladder at the dome and anteriorly. There is a 1.5 cm fistula located between the right anterior bladder dome and adjacent sigmoid colon. There is a persistent thick-walled 3.6 cm peripheral enhancing gas and fluid collection abutting the right anterior bladder consistent with a small residual abscess. This has improved in the interval when it measured 6.5 cm. This smaller residual abscess also appears to connect to the colovesical fistula. Multiple colonic diverticula. Mild residual thickening of the sigmoid colon. This suggests resolving diverticulitis. No new areas of acute diverticulitis identified. No dilated loops of bowel to suggest an obstruction. Normal appendix. IMPRESSION: 1. Decrease in size in the now 3.6 cm residual abscess abutting the right anterior bladder. 2. There is a 1.5 cm colovesical fistula involving the sigmoid colon. This also appears to connect to the small residual abscess. 3. Mild cirrhosis. 4. Mild residual thickening of the sigmoid colon suggests resolving diverticulitis. No new areas of acute diverticulitis identified. Patient has been accepted to [facility] in [place]; likely to need surgical intervention While awaiting Tx cont broad-spectrum IV abx with zosyn. Cont IV fluids, pain meds, ASA/Plavix on hold, etc. Pt was NPO and has per him, really hasn't taken adequate oral intake since last Sunday (3/15) he is hungry and would like to eat. Advanced to full liquids with supplement, which he is tolerating. RN updated, if pain increases, will quickly reduce dietary intake All paperwork for transfer to [place] is complete. Hopefully will hear today (2) Colonic diverticular abscess: Plan: Had such 07/2022 s/p IR drainage, but this abscess has returned. Cont IV zosyn, etc. (3) Colovesical fistula: Plan: He reports seeing flecks of stool in his urine and copious passage of gas He has a GNR UTI. Zosyn should suffice. Follow culture. Klebsiella de sensitive though would prefer to continue broad spectrum abx due to fistula He will likely need surgical intervention upon transfer to [facility] for #1/#2/#3 given the recurrent nature of this problem. (4) UTI (urinary tract infection): Plan: 2nd to colo-vesicular fistula Klebsiella sensitive to Zosyn IV zosyn should suffice (5) Acute gout: Plan: right great toe, left ankle with resolution of symptoms, will dc Toradol ideally short course of steroids would be best but will defer given #1/#2 markedly improved would NOT resume HCTZ in future he has been having recurrent attacks over the last few months he may benefit from allopurinol or uloric prophylaxis down the line uric acid level 5.1 (6) Tobacco use disorder: Plan: desperately needs to quit smoking in light of the above. Reviewed with pt, he states he has no plans to resume (7) Benign essential hypertension: Plan: holding ARB/HCTZ BP currently 134/75. BP has been labile past 24 hrs, though high probability will need to resume anti HTN in near future, for now would continue prn Hydralazine as ordered given his recurrent, suspected gout attacks would NOT resume HCTZ in future cont flomax (8) Hyperlipidemia: Plan: hold statin (9) Diabetes mellitus, type 2: Plan: a1c 6.5% in 06/2022 diet control has been employed at home (10) Peripheral arterial disease: Plan: h/o fem-pop bypass in the past History of: Not acute S/p bilateral femoral-popliteal bypass graft with [place]-Atilio in 2013 S/p angioplasty of bilateral bypass grafts 2015x2 S/p multiple angioplasty, laser atherectomy, shockwave medical lithotripsy of bilateral lower extremities 2016, 2018, 2021 S/p bilateral EIA/HYDROGRAPHER/DFA lithotripsy/angioplasty, bilateral DFA PRAKASH-angioplasty and L pop angioplasty 03/2022 holding plavix in the event he needs surgical intervention for #1/#2/#3 upon transfer to [facility] hold asa (11) Barretts esophagus: Plan: IV PPI (12) Chronic hepatitis C without mention of hepatic coma: Plan: HepC previously treated by report mild cirrhotic appearing liver on imaging but is compensated on exam Plan cont IV fluids await transfer to [facility] in [place] repeat labs this AM with WBC 5.35k Admission and Anticipated Discharge Date Admission Date: October 08, 2022 [facility] was contacted and no bed was available as of now for him about the time of discharge he had developed SEVERE b/l foot pain he remembers hitting his right foot on an IV pole during that stay at [facility] never had right foot x-rays this impaired his ability to walk when he got home he used motrin with ice and this helped considerably told him this story was suspicious for gout On reevaluation 10/09, he had findings consistent with acute gout, pain, redness essentially resolved today Review of Systems Review of Systems: gen - afebrile cv - no cp, no orthopnea pulm - no dyspnea GI - passing flatus; no rectal bleeding; no N/V, passed flatus via urine, but had 2 BM's yesterday and 1 today (small amount of stool) musculo - foot pain resolved Respiratory: denies symptoms Cardiovascular: Additional Comments: no chest pain Gastrointestinal: passing flatus when urinates Neurologic: awake, alert Physical Exam Physical Exam: WDWN WM in NAD Respiratory: normal respiratory effort, lungs clear to auscultation Cardiovascular: RRR, no murmur, no edema Results & Data Results & Data Vital Signs (Past 12 Hours) Vital Signs Temp Pulse Pulse Resp BP Pulse Ox O2 Del Method 10/12/22 07:00 69 10/12/22 08:53 87 18 134/75 97 Room Air 10/12/22 08:11 36.8 C 72 18 166/93 H 98 Room Air 10/12/22 04:21 75 127/67 10/12/22 03:28 36.8 C 72 18 170/82 H 95 Room Air PG Care Time/CCT Total # of Minutes Spent Total Time Spent with Patient: Total time spent is greater than 50% in coordination of care (as documented) at patient's floor/unit and/or counseling patient: Coding Level of Care Code 11382 SUB INP/OBS CARE Diagnoses Sigmoid diverticulitis K57.32 Colonic diverticular abscess K57.20 Colovesical fistula N32.1 UTI (urinary tract infection) N39.0 Acute gout M10.9 Tobacco use disorder F17.200 Benign essential hypertension I10 Hyperlipidemia E78.5 Diabetes mellitus, type 2 E11.9 Peripheral arterial disease I73.9 Barretts esophagus K22.70 Chronic hepatitis C without mention of hepatic coma B18.2
[2022-10-13] MEDS: PIPERACILLIN/TAZOBACTAM 4.5 GM in DEXTROSE 5% 100 ML IV SCH ×3 (00:04→16:05)
[2022-10-13] MEDS: NSS + 20MEQ KCL 20 MEQ/1,000 ML BAG IV SCH (04:45)
[2022-10-13] MEDS: TAMSULOSIN HCL 0.4 MG CAP PO SCH (08:19)
[2022-10-13] MEDS: PANTOprazole 40 MG in SYRINGE 0 ML IV SCH (11:13)
--- NOTE | 2022-10-13 13:30 | Hospitalist Progress Note ---
Date of Service October 13, 2022 Assessment & Plan (1) Sigmoid diverticulitis: Plan: Had such in 07/2022 requiring hospitalization at [facility] [place]. Had diverticular abscess which underwent IR drainage. Records indicate he was d/c home on course of PO cipro/flagyl. He met with colorectal surgery post-discharge and they were planning elective sigmoid resection later this spring, in November. Now presenting with recurrent abd pain and CT as below -- CT a/p 10/08/22 - FINDINGS: The lung bases are better appreciated on the same day chest CT. No pneumoperitoneum. No pneumatosis. No acute fractures identified. Small fat- containing right inguinal hernia, unchanged. Nodular contour to the liver consistent with mild cirrhosis. The main portal vein is patent. The gallbladder, pancreas, spleen, and adrenal glands are unremarkable. The kidneys enhance normally. No hydronephrosis. Calcified plaque within the normal caliber abdominal aorta. No retroperitoneal or pelvic lymphadenopathy. No pelvic free fluid. Thickening within the bladder at the dome and anteriorly. There is a 1.5 cm fistula located between the right anterior bladder dome and adjacent sigmoid colon. There is a persistent thick-walled 3.6 cm peripheral enhancing gas and fluid collection abutting the right anterior bladder consistent with a small residual abscess. This has improved in the interval when it measured 6.5 cm. This smaller residual abscess also appears to connect to the colovesical fistula. Multiple colonic diverticula. Mild residual thickening of the sigmoid colon. This suggests resolving diverticulitis. No new areas of acute diverticulitis identified. No dilated loops of bowel to suggest an obstruction. Normal appendix. IMPRESSION: 1. Decrease in size in the now 3.6 cm residual abscess abutting the right anterior bladder. 2. There is a 1.5 cm colovesical fistula involving the sigmoid colon. This also appears to connect to the small residual abscess. 3. Mild cirrhosis. 4. Mild residual thickening of the sigmoid colon suggests resolving diverticulitis. No new areas of acute diverticulitis identified. Patient has been accepted to [facility] in [place]; likely to need surgical intervention While awaiting Tx cont broad-spectrum IV abx with zosyn. Cont IV fluids, pain meds, ASA/Plavix on hold, etc. Pt was NPO and has per him, really hasn't taken adequate oral intake since last Sunday (3/15) he is hungry and would like to eat. Advanced to full liquids with supplement, which he is tolerating. RN updated, if pain increases, will quickly reduce dietary intake All paperwork for transfer to [place] is complete. Hopefully will happen Sunday, 10/14 (2) Colonic diverticular abscess: Plan: Had such 07/2022 s/p IR drainage, but this abscess has returned. Cont IV zosyn, etc. Present on Admission?: Yes (3) Colovesical fistula: Plan: He reports seeing flecks of stool in his urine and copious passage of gas He has a GNR UTI. Zosyn should suffice. Follow culture. Klebsiella de sensitive though would prefer to continue broad spectrum abx due to fistula He will likely need surgical intervention upon transfer to [facility] for #1/#2/#3 given the recurrent nature of this problem. (4) UTI (urinary tract infection): Plan: 2nd to colo-vesicular fistula Klebsiella sensitive to Zosyn IV zosyn should suffice (5) Acute gout: Plan: right great toe, left ankle with resolution of symptoms, will dc Toradol ideally short course of steroids would be best but will defer given #1/#2 markedly improved would NOT resume HCTZ in future he has been having recurrent attacks over the last few months he may benefit from allopurinol or uloric prophylaxis down the line uric acid level 5.1 (6) Tobacco use disorder: Plan: desperately needs to quit smoking in light of the above. Reviewed with pt, he states he has no plans to resume (7) Benign essential hypertension: Plan: holding ARB/HCTZ BP currently 115/65. BP has been labile past 24 hrs, though high probab ility will need to resume anti HTN in near future, for now would continue prn Hydralazine as ordered given his recurrent, suspected gout attacks would NOT resume HCTZ in future cont flomax (8) Hyperlipidemia: Plan: hold statin (9) Diabetes mellitus, type 2: Plan: a1c 6.5% in 06/2022 diet control has been employed at home (10) Peripheral arterial disease: Plan: h/o fem-pop bypass in the past History of: Not acute S/p bilateral femoral-popliteal bypass graft with [place]-Atilio in 2013 S/p angioplasty of bilateral bypass grafts 2014x2 S/p multiple angioplasty, laser atherectomy, shockwave medical lithotripsy of bilateral lower extremities 2015, 2017, 2020 S/p bilateral EIA/PRODUCTION LINE SOLDERER/DFA lithotripsy/angioplasty, bilateral DFA PRAKASH-angioplasty and L pop angioplasty 03/2022 holding plavix in the event he needs surgical intervention for #1/#2/#3 upon transfer to [facility] hold asa (11) Barretts esophagus: Plan: IV PPI (12) Chronic hepatitis C without mention of hepatic coma: Plan: HepC previously treated by report mild cirrhotic appearing liver on imaging but is compensated on exam Plan cont IV fluids await transfer to [facility] in [place] repeat labs 10/12 AM with WBC 5.35k Admission and Anticipated Discharge Date Admission Date: October 08, 2022 [facility] was contacted and no bed was available as of now for him. Pt anxiously awaiting transfer, text received from Gay Acosta that [facility] texted her that potential bed availability tomorrow about the time of discharge he had developed SEVERE b/l foot pain he remembers hitting his right foot on an IV pole during that stay at [facility] never had right foot x-rays this impaired his ability to walk when he got home he used motrin with ice and this helped considerably told him this story was suspicious for gout On reevaluation 10/09, he had findings consistent with acute gout, pain, redness resolved today Review of Systems Review of Systems: gen - afebrile cv - no cp, no orthopnea pulm - no dyspnea GI - passing flatus; no rectal bleeding; no N/V, passed flatus via urine, but had 2 BM's yesterday and 1 today (small amount of stool) musculo - foot pain resolved Respiratory: denies symptoms Cardiovascular: Additional Comments: no chest pain Gastrointestinal: passing flatus when urinates Neurologic: awake, alert Physical Exam Physical Exam: WDWN WM in NAD Respiratory: normal respiratory effort, lungs clear to auscultation Cardiovascular: RRR, no murmur, no edema Gastrointestinal (Abdomen): soft, nontender, good bS. Tolerating full liquid diet with nutritional supplement Results & Data Results & Data Vital Signs (Past 12 Hours) Vital Signs Temp Pulse Pulse Resp BP BP Pulse Ox 10/13/22 07:26 60 10/13/22 11:00 36.8 C 73 18 115/65 97 10/13/22 08:08 36.9 C 61 20 189/93 H 97 10/13/22 03:58 36.8 C 71 18 158/68 H 94 O2 Del Method 10/13/22 07:26 10/13/22 11:00 Room Air 10/13/22 08:08 Room Air 10/13/22 03:58 Room Air PG Care Time/CCT Total # of Minutes Spent Total Time Spent with Patient: Total time spent is greater than 50% in coordination of care (as documented) at patient's floor/unit and/or counseling patient: Coding Level of Care Code 96409 SUB INP/OBS CARE 2MIN Diagnoses Sigmoid diverticulitis K57.32 Colonic diverticular abscess K57.20 Colovesical fistula N32.1 UTI (urinary tract infection) N39.0 Acute gout M10.9 Tobacco use disorder F17.200 Benign essential hypertension I10 Hyperlipidemia E78.5 Diabetes mellitus, type 2 E11.9 Peripheral arterial disease I73.9 Barretts esophagus K22.70 Chronic hepatitis C without mention of hepatic coma B18.2
[2022-10-13] MEDS ORDERED: KETOROLAC 30 MG/ML VIAL IV ONE (14:22)
[2022-10-13] MEDS: hydrALAZINE HCL 20 MG/ML VIAL IV PRN (16:56)
--- NOTE | 2022-10-13 17:19 | Discharge Summary ---
Date of Service October 13, 2022 Admission HPI Per Admitting Provider The patient is a 62-year-old male with a past medical history including tobacco use disorder, benign essential hypertension, hyperlipidemia, diabetes mellitus type 2, peripheral arterial disease, lumbar spinal canal stenosis, and colonic diverticular abscess. CT scan of the abdomen and pelvis this evening shows decreasing size to 3.6 cm residual abscess abutting right anterior bladder, with a 1.5 cm colovesical fist eleni involving the sigmoid colon, that also appears to connect to the small residual abscess. There is also mild cirrhosis, mild residual thickening of the sigmoid colon suggesting resolving diverticulitis, with no new areas of acute diverticulitis identified. Just contacted by nursing, there is a bed at [facility] and plan is to transport him tonight Principal Diagnosis Colovesicular fistula/diverticular disease Discharge Exam WDWN WM in NAD Constitutional afebrile Neck trachea midline, no thyromegaly Respiratory normal respiratory effort, lungs clear to auscultation Cardiovascular RRR, no murmur, no edema Gastrointestinal (Abdomen) soft, nontender, normal BS Neurologic PERRL, EOMI, accommodation nl, no face palsy, no dysarthria Discharge Data Allergies Allergy/AdvReac Type Severity Reaction Status Date / Time lisinopril AdvReac Severe COUGH Verified 10/08/22 17:17 Consultations 10/08/22 21:11 ED Decision to Admit Stat 10/11/22 17:34 Consult Patient Rep [Consult Patient Services] Routine Ordered Studies 10/08/22 15:33 CT abd pelvis IV con only Stat CT angio chest PE protocol Stat Hospital Course (1) Sigmoid diverticulitis: Had such in 07/2022 requiring hospitalization at [facility] in [place]. Had diverticular abscess which underwent IR drainage. Records indicate he was d/c home on course of PO cipro/flagyl. He met with colorectal surgery post-discharge and they were planning elective sigmoid resection later this spring, in November. Now presenting with recurrent abd pain and CT as below -- CT a/p 10/08/22 - FINDINGS: The lung bases are better appreciated on the same day chest CT. No pneumoperitoneum. No pneumatosis. No acute fractures identified. Small fat- containing right inguinal hernia, unchanged. Nodular contour to the liver consistent with mild cirrhosis. The main portal vein is patent. The gallbladder, pancreas, spleen, and adrenal glands are unremarkable. The kidneys enhance normally. No hydronephrosis. Calcified plaque within the normal caliber abdominal aorta. No retroperitoneal or pelvic lymphadenopathy. No pelvic free fluid. Thickening within the bladder at the dome and anteriorly. There is a 1.5 cm fistula located between the right anterior bladder dome and adjacent sigmoid colon. There is a persistent thick-walled 3.6 cm peripheral enhancing gas and fluid collection abutting the right anterior bladder consistent with a small residual abscess. This has improved in the interval when it measured 6.5 cm. This smaller residual abscess also appears to connect to the colovesical fistula. Multiple colonic diverticula. Mild residual thickening of the sigmoid colon. This suggests resolving diverticulitis. No new areas of acute diverticulitis identified. No dilated loops of bowel to suggest an obstruction. Normal appendix. IMPRESSION: 1. Decrease in size in the now 3.6 cm residual abscess abutting the right anterior bladder. 2. There is a 1.5 cm colovesical fistula involving the sigmoid colon. This also appears to connect to the small residual abscess. 3. Mild cirrhosis. 4. Mild residual thickening of the sigmoid colon suggests resolving diverticulitis. No new areas of acute diverticulitis identified. Patient has been accepted to [facility] in [place]; likely to need surgical intervention While awaiting Tx cont broad-spectrum IV abx with zosyn. Cont IV fluids, pain meds, ASA/Plavix on hold, etc. Pt was NPO and has per him, really hasn't taken adequate oral intake since last Sunday (10/04) he is hungry and would like to eat. Advanced to full liquids with supplement, which he is tolerating. RN updated, if pain increases, will quickly reduce dietary intake All paperwork for transfer to [place] is complete. Hopefully will happen Sunday, 10/14 (2) Colonic diverticular abscess: Had such 07/2022 s/p IR drainage, but this abscess has returned. Cont IV zosyn, etc. (3) Colovesical fistula: He reports seeing flecks of stool in his urine and copious passage of gas He has a GNR UTI. Zosyn should suffice. Follow culture. Klebsiella de sensitive though would prefer to continue broad spectrum abx due to fistula He will likely need surgical intervention upon transfer to [facility] for #1/#2/#3 given the recurrent nature of this problem. (4) UTI (urinary tract infection): 2nd to colo-vesicular fistula Klebsiella sensitive to Zosyn IV zosyn should suffice (5) Acute gout: right great toe, left ankle with resolution of symptoms, will dc Toradol mild flare earlier today, responded well to Toradol and has fully resolved would NOT resume HCTZ in future he has been having recurrent attacks over the last few months he may benefit from allopurinol or uloric prophylaxis down the line uric acid level 5.1 (6) Tobacco use disorder: desperately needs to quit smoking in light of the above. Reviewed with pt, he states he has no plans to resume (7) Benign essential hypertension: holding ARB/HCTZ BP currently 115/65. BP has been labile past 24 hrs, though high probability will need to resume anti HTN in near future, for now would continue prn Hydralazine as ordered given his recurrent, suspected gout attacks would NOT resume HCTZ in future cont flomax (8) Hyperlipidemia: hold statin (9) Diabetes mellitus, type 2: a1c 6.5% in 06/2022 diet control has been employed at home (10) Peripheral arterial disease: h/o fem-pop bypass in the past History of: Not acute S/p bilateral femoral-popliteal bypass graft with Bassett-Atilio in 2013 S/p angioplasty of bilateral bypass grafts 2015x2 S/p multiple angioplasty, laser atherectomy, shockwave medical lithotripsy of bilateral lower extremities 2015, 2017, 2020 S/p bilateral EIA/EXPRESS MANAGER/DFA lithotripsy/angioplasty, bilateral DFA PRAKASH-angioplasty and L pop angioplasty 03/2022 holding plavix in the event he needs surgical intervention for #1/#2/#3 upon transfer to [facility] hold asa (11) Barretts esophagus: IV PPI (12) Chronic hepatitis C without mention of hepatic coma: HepC previously treated by report mild cirrhotic appearing liver on imaging but is compensated on exam Plan cont IV fluids await transfer to [facility] in [place] repeat labs 10/12 AM with WBC 5.35k Total Time Total Time Spent Total Time Spent (In Minutes): 55 Discharge Plan Discharge Items Patient Disposition: Transfer Acute Care Hospital Reason For Visit: COLOVESICAL FISTULA, DIVERTICULITIS, UTI Discharge Diagnosis: colovesicular fistula Condition on Discharge: Fair Activity: As commented below Activity Comment: pending evaluation/treatment at [facility] Lifting: No more than 5 pounds Bathing: No limitations Driving/Machine Use: pending [facility] evaluation Weightbearing: Full weightbearing Non-emergency contact: Primary Care Provider Call non-emergency contact if: your symptoms worsen Follow-up/Referrals: Vasiliy Moreno III, CRNP [Primary Care Provider] - Diet: Full liquid Addtl Attending Provider Instructions: To be transferred to tertiary center now. Intervention as per them Pending Studies at Discharge: No Stand-Alone Forms: My [facility] Skilled Items Patient informed of condition?: Yes DNR: No Discharge Level of Care: Other Communicable Disease: No Discharge Prognosis: Improving Lines: US Guided Peripheral IV Urinary Catheter: No Medications and DC Order Prescriptions: New hydralazine 20 mg/mL Solution 10 mg IV Q4H PRN (Reason: hypertension) Qty: 30 0RF Zosyn in dextrose (iso-osm) 4.5 gram/100 mL piggyback 4.5 g IV Q8H Qty: 1200 0RF pantoprazole [Protonix] 40 mg recon soln 40 mg IV DAILY 7 Days Qty: 10 0RF Continued acetaminophen 325 mg tablet 325 - 650 mg PO Q6H PRN (Reason: Pain) tamsulosin 0.4 mg capsule 0.4 mg PO DAILY Qty: 90 3RF Discontinued atorvastatin 40 mg tablet 40 mg PO HS Qty: 90 3RF valsartan-hydrochlorothiazide 80-12.5 mg tablet 1 tab PO BID Qty: 180 3RF aspirin 81 mg Tablet,Delayed Release (Dr/Ec) 81 mg PO DAILY clopidogrel 75 mg tablet 75 mg PO QAM Rx Instructions: TAKE 1 TABLET BY MOUTH EVERY MORNING Discharge Orders: Discharge Order (Routine); Ordered 10/13/22 Ordered By: Alexis Fernandez Admission Data Admit Date/Time: 10/08/22 21:09 Attending Provider: Alexis Fernandez Admit Provider: Jose Diaz Primary Care Provider: Vasiliy Moreno III Other Providers: Jose Diaz ; Ian Johnson Coding Level of Care Code 50920 INP/OBS DISCH >30 MIN Diagnoses Sigmoid diverticulitis K57.32 Colonic diverticular abscess K57.20 Colovesical fistula N32.1 UTI (urinary tract infection) N39.0 Acute gout M10.9 Tobacco use disorder F17.200 Benign essential hypertension I10 Hyperlipidemia E78.5 Diabetes mellitus, type 2 E11.9 Peripheral arterial disease I73.9 Barretts esophagus K22.70 Chronic hepatitis C without mention of hepatic coma B18.2 Time Spent (min) 55
== END 2022-10-13 18:50 | disposition short-term general hospital (02) | DRG 699 ==
LOC: ED 13:46 → 2N 21:09 → SUATTDRO 21:09 → 2N 23:43 → 2W 10-10 17:31